=== PATIENT | male | born 1975 | race Caucasian/White ===

== ENCOUNTER 2018-05-18 05:51 | Inpatient (IN) | payer MEDICARE, OTHER ==
[~2018-05-18] VITALS: Ht 180.3 cm; Wt 53.8 kg
[~2018-05-18 05:51] MED LIST: CLONIDINE HCL0.1 MG PO; METOPROLOL SUCC50 MG PO; RISPERDAL0.5 MG PO
[2018-05-18] MEDS ORDERED: IOPAMIDOL 300MG/ML 50ML INFUS..BTL IV ONE (06:35)
--- NOTE | 2018-05-18 06:49 | Diagnostic Imaging Report ---
ABDOMEN-1VIEW (KUB) Clinical history: Preoperative for stones Technique: AP view abdomen Comparison: None Findings: Evaluation is limited by patient positioning and rotation. Multiple calcifications overlie the abdomen. Nonobstructive bowel gas pattern with bowel suture noted and left left lower quadrant ostomy. Chronic changes of the bones with bilateral hip deformities: right femoral head deformity/absence and superior subluxation of the right femur, left femoroacetabular remodeling. Impression: Limited assessment for renal and ureteral stones. Correlate with prior cross-sectional imaging. Signed by: Dr Frances Mena MD on 05/18/2018 6:46 AM
[2018-05-18] MEDS ORDERED: GENTAMICIN 80MG/NS 100 ML 100 ML IV ONE (07:12)
[2018-05-18 07:21] LABS: BASOPHILS % 0.7 % (0.0-1.0); EOSINOPHILS # (AUTO) 0.3 (0.0-0.4); EOSINOPHILS % 4.3 % (0.0-6.0); HEMATOCRIT 39.5 % (38.2-49.6); HEMOGLOBIN 12.9 g/dL (14.0-18.0); LYMPHOCYTES # (AUTO) 1.6 (1.0-3.2); LYMPHOCYTES % 25.8 % (18.0-39.1); MEAN CORPUSCULAR HEMOGLOBIN 29.6 pg (28-32); MEAN CORPUSCULAR HGB CONC 32.7 g/dL (31-35); MEAN CORPUSCULAR VOLUME 90.6 fL (81-99); MONOCYTES # (AUTO) 0.3 (0.2-0.8); MONOCYTES % 5.6 % (4.4-11.3); NEUTROPHILS # (AUTO) 3.8 (2.1-6.9); NEUTROPHILS % 63.3 % (38.7-80.0); PLATELET COUNT 407 x10e3/uL (140-360); RED BLOOD COUNT 4.36 x10e6/uL (4.3-5.7); RED CELL DISTRIBUTION WIDTH 13.9 % (11.7-14.4)
[2018-05-18] MEDS ORDERED: MEROPENEM 1 GM VIAL IV NR (07:30)
[2018-05-18 07:36] LABS: ANION GAP 13.5 mmol/L (8-16); BLOOD UREA NITROGEN 17 mg/dL (7-26); BUN/CREATININE RATIO 29 (6-25); CALCIUM 9.6 mg/dL (8.4-10.2); CARBON DIOXIDE 21 mmol/L (22-29); CHLORIDE 105 mmol/L (98-107); CREATININE, SERUM 0.59 mg/dL (0.72-1.25); EST GLOMERULAR FILTRATION RATE > 60 ML/MIN (60-); GLUCOSE 99 mg/dL (74-118); POTASSIUM 3.5 mmol/L (3.5-5.1); SODIUM 136 mmol/L (136-145)
[2018-05-18] MEDS ORDERED: NITROGLYCERIN/D5W 200 MCG/ML 250 ML ONE (07:58)
[2018-05-18] MEDS ORDERED: NICARDIPINE HCL SOLN 10 ML ONE (08:31)
[2018-05-18] MEDS ORDERED: MEROPENEM 1GM 100 ML IV SCH (10:15)
[2018-05-18] MEDS: SODIUM CHLORIDE 0.9% 250ML IRRIG IR SCH ×2 (10:15→14:15)
[2018-05-18] MEDS ORDERED: DIPHENHYDRAMINE HCL INJ 50 MG/ML VIAL IM PRN (10:15)
[2018-05-18 12:00] VITALS: BP 152/88
[2018-05-18] MEDS: D5.45%NS/KCL 20MEQ 1,000 ML IV SCH ×3 (12:41→21:50)
[2018-05-18 16:00] VITALS: BP 101/68
[2018-05-18] MEDS ORDERED: BALSAM PERU/CASTOR OIL 60 GM OINT...G. TP SCH (17:00)
[2018-05-18] MEDS ORDERED: LIDOCAINE HCL 2% LOCAL INJ 5 ML SDV VIAL INJ ONE (17:30)
[2018-05-18] MEDS ORDERED: PROPOFOL IV EMULSION 10 MG/ML 20 ML VIAL ONE (17:30)
[2018-05-18] MEDS ORDERED: SEVOFLURANE INHAL SOLN 250 ML PEN BTL ONE (17:30)
[2018-05-18] MEDS ORDERED: ONDANSETRON HCL INJ 2 MG/ML VIAL ONE (17:30)
[2018-05-18] MEDS ORDERED: DEXAMETHASONE SOD PHOS INJ 4 MG/ML VIAL ONE (17:30)
[2018-05-18] MEDS: MEROPENEM 1 GM VIAL IV SCH ×3 (18:00→20:39)
[2018-05-18] MEDS ORDERED: MIDAZOLAM HCL 2 MG/2 ML VIAL ONE (18:08)
[2018-05-18] MEDS ORDERED: FENTANYL CITRATE/PF 100MCG/2 ML INJ ONE (18:08)
[2018-05-18 18:20] VITALS: BP 152/88
[2018-05-18 20:00] VITALS: BP 147/105
[2018-05-18 20:39] VITALS: BP 147/105
--- NOTE | 2018-05-18 21:14 | History and Physical ---
HISTORY OF PRESENT ILLNESS: A 43-year-old male with past medical history positive for quadriplegia, hypertension, chronic pain syndrome. He had a bladder stone. Bladder stone was removed by Dr. Lopez today and patient was transferred to my service. REVIEW OF SYSTEMS CARDIOVASCULAR: No chest pain or palpitation. RESPIRATORY: No shortness of breath. No cough. GASTROINTESTINAL: No nausea, no vomiting, no diarrhea. GENITOURINARY: No urinary frequency, no dysuria. ALLERGIES: SHE IS ALLERGIC TO ZOLO[place]. PHYSICAL EXAMINATION VITAL SIGNS: blood pressure 152/88, temperature 96.1, heart rate 80 per minute, respiratory rate 18 per minute, oxygen saturation 100%. LABS: On the BMP, sodium 136, potassium 3.5, chloride 105, CO2 21, BUN 17, creatinine 0.59, glucose 99. On the CBC, white blood count 6.04, hemoglobin 12.9, hematocrit 39.5, platelet count 407,000. FINAL IMPRESSION 1. Bladder stone. 2. Urinary tract infection and prostatitis. 3. Essential hypertension. 4. Anemia of chronic disease. 5. Quadriplegia. 6. Chronic pain syndrome. PLAN OF TREATMENT: Continue meropenem 1 g IV twice a day. Continue UA, urine culture. We are going to resume the Risperdal and metoprolol as he was taking before. Continue IV fluids 125 mL an hour. We are going to continue wound care. Continue pain control with Burna 5 per 325 mg q.4 h. as needed for pain. Job#: [id number]
[2018-05-18] MEDS: BALSAM PERU/CASTOR OIL 60 GM OINT...G. TP SCH (22:45)
[2018-05-18 23:41] LABS: BILIRUBIN,URINE NEGATIVE (NEGATIVE); CLARITY,URINE CLOUDY (CLEAR); COLOR,URINE STRAW (YELLOW); KETONES,URINE NEGATIVE (NEGATIVE); LEUKOCYTE ESTERASE ,URINE 2+ (NEGATIVE); NITRITE,URINE POSITIVE (NEGATIVE); PROTEIN,URINE DIPSTICK 2+ (NEGATIVE); URINE UROBILINOGEN 0.2 mg/dL (0.2 - 1)
[2018-05-18 23:45] LABS: RBC,URINE >50 /HPF (0-5)
[2018-05-18 23:46] LABS: BACTERIA,URINE MANY /HPF; EPITHELIAL CELLS,URINE FEW /LPF; WBC,URINE (MAN) >50 /HPF (0-5)
[2018-05-19] VITALS (7 sets, daily range): BP systolic 104–213; BP diastolic 56–130
[2018-05-19 06:00] LABS: BASOPHILS % 0.4 % (0.0-1.0); EOSINOPHILS # (AUTO) 0.3 (0.0-0.4); EOSINOPHILS % 3.2 % (0.0-6.0); HEMATOCRIT 38.3 % (38.2-49.6); HEMOGLOBIN 12.6 g/dL (14.0-18.0); LYMPHOCYTES # (AUTO) 1.6 (1.0-3.2); LYMPHOCYTES % 19.3 % (18.0-39.1); MEAN CORPUSCULAR HEMOGLOBIN 29.9 pg (28-32); MEAN CORPUSCULAR HGB CONC 32.9 g/dL (31-35); MONOCYTES # (AUTO) 0.5 (0.2-0.8); MONOCYTES % 6.3 % (4.4-11.3); NEUTROPHILS # (AUTO) 5.8 (2.1-6.9); NEUTROPHILS % 70.6 % (38.7-80.0); PLATELET COUNT 392 x10e3/uL (140-360); RED BLOOD COUNT 4.21 x10e6/uL (4.3-5.7); RED CELL DISTRIBUTION WIDTH 14.1 % (11.7-14.4)
[2018-05-19 06:16] LABS: ANION GAP 13.8 mmol/L (8-16); BLOOD UREA NITROGEN 10 mg/dL (7-26); BUN/CREATININE RATIO 16 (6-25); CALCIUM 9.3 mg/dL (8.4-10.2); CARBON DIOXIDE 22 mmol/L (22-29); CHLORIDE 106 mmol/L (98-107); CREATININE, SERUM 0.61 mg/dL (0.72-1.25); EST GLOMERULAR FILTRATION RATE > 60 ML/MIN (60-); GLUCOSE 160 mg/dL (74-118); POTASSIUM 3.8 mmol/L (3.5-5.1); SODIUM 138 mmol/L (136-145)
[2018-05-19] MEDS: MEROPENEM 1 GM VIAL IV SCH ×2 (08:00→21:30)
[2018-05-19] MEDS: CLONIDINE HCL 0.1 MG TAB PO SCH (09:00)
[2018-05-19] MEDS: METOPROLOL SUCCINATE 50 MG TAB XL PO SCH (09:00)
[2018-05-19] MEDS: RISPERIDONE 0.5 MG TAB PO SCH (09:00)
[2018-05-19] MEDS: BALSAM PERU/CASTOR OIL 60 GM OINT...G. TP SCH ×2 (10:00→21:30)
[2018-05-19] MEDS ORDERED: CLONIDINE HCL 0.2 MG TAB PO PRN (10:15)
[2018-05-19] MEDS: D5.45%NS/KCL 20MEQ 1,000 ML IV SCH (10:21)
--- NOTE | 2018-05-19 11:30 | Progress Note ---
DATE: May 19, 2018 INTERNAL MEDICINE PROGRESS NOTE SUBJECTIVE: A 43-year-old male. He has had a bladder stone removed by Dr. Lopez. Patient is currently on IV antibiotic. Blood pressure was very high. We are going to start him on Norvasc and clonidine as needed. PHYSICAL EXAM VITAL SIGNS: Blood pressure 230/130 which he is going to be rechecked again, temperature 98.3 degrees Fahrenheit, heart rate 66 per minute, respiratory rate 17 per minute, and oxygen saturation 100%. HEART: Regular rhythm. Normal S1 and S2 sounds. LUNGS: Clear bilaterally. ABDOMEN: Soft. He has had ileostomy and colostomy. EXTREMITIES: Show atrophy secondary to quadriplegia. LABS: On the BMP, sodium 138, potassium 3.8, chloride 106, CO2 of 22, BUN 10, creatinine 0.61, and glucose 161. CBC; white blood count 8.25, hemoglobin 12.6, hematocrit 38.3, and platelet count 292,000. FINAL IMPRESSION 1. Bladder stone, status post removal. 1. Severely uncontrolled hypertension. 2. Urinary tract infection with prostatitis. 3. Quadriplegia. 4. Anemia of chronic disease. PLAN OF TREATMENT: We are going to discontinue the IV fluids since the BUN and creatinine are normal and the patient is able to take fluids. Continue Benadryl 25 mg q.4 hours as needed. Continue Risperdal 0.25 mg daily. Balsam [place] and castor oil to the open wounds twice a day, meropenem 1 gram IV twice a day, [place] 1 tablet q.4 hours as needed, clonidine 0.2 mg q.4 hours as needed for hypertension., clonidine 0.1 mg daily, metoprolol 50 mg daily, and amlodipine 5 mg daily. Job#: [id number] STAS
[2018-05-19] MEDS: AMLODIPINE BESYLATE 5 MG TAB PO SCH (21:30)
[2018-05-20] VITALS (10 sets, daily range): BP systolic 75–147; BP diastolic 50–97
[2018-05-20 06:06] LABS: BASOPHILS % 0.4 % (0.0-1.0); EOSINOPHILS # (AUTO) 0.3 (0.0-0.4); EOSINOPHILS % 3.8 % (0.0-6.0); HEMATOCRIT 37.7 % (38.2-49.6); HEMOGLOBIN 12.3 g/dL (14.0-18.0); LYMPHOCYTES # (AUTO) 2.4 (1.0-3.2); LYMPHOCYTES % 28.4 % (18.0-39.1); MEAN CORPUSCULAR HEMOGLOBIN 29.7 pg (28-32); MEAN CORPUSCULAR HGB CONC 32.6 g/dL (31-35); MEAN CORPUSCULAR VOLUME 91.1 fL (81-99); MONOCYTES # (AUTO) 0.7 (0.2-0.8); MONOCYTES % 7.8 % (4.4-11.3); NEUTROPHILS % 59.4 % (38.7-80.0); PLATELET COUNT 412 x10e3/uL (140-360); RED BLOOD COUNT 4.14 x10e6/uL (4.3-5.7)
[2018-05-20 06:25] LABS: ANION GAP 14.4 mmol/L (8-16); BLOOD UREA NITROGEN 11 mg/dL (7-26); BUN/CREATININE RATIO 17 (6-25); CALCIUM 9.9 mg/dL (8.4-10.2); CARBON DIOXIDE 22 mmol/L (22-29); CHLORIDE 108 mmol/L (98-107); CREATININE, SERUM 0.63 mg/dL (0.72-1.25); EST GLOMERULAR FILTRATION RATE > 60 ML/MIN (60-); GLUCOSE 134 mg/dL (74-118); POTASSIUM 4.4 mmol/L (3.5-5.1); SODIUM 140 mmol/L (136-145)
[2018-05-20] MEDS: MEROPENEM 1 GM VIAL IV SCH ×2 (09:01→21:21)
[2018-05-20] MEDS: BALSAM PERU/CASTOR OIL 60 GM OINT...G. TP SCH ×2 (09:02→21:21)
[2018-05-20] MEDS: AMLODIPINE BESYLATE 5 MG TAB PO SCH (09:02)
[2018-05-20] MEDS: RISPERIDONE 0.5 MG TAB PO SCH (09:02)
[2018-05-20] MEDS: CLONIDINE HCL 0.1 MG TAB PO SCH (09:02)
[2018-05-20] MEDS: METOPROLOL SUCCINATE 50 MG TAB XL PO SCH (09:02)
--- NOTE | 2018-05-20 14:21 | Progress Note ---
DATE: May 20, 2018 INTERNAL MEDICINE PROGRESS NOTE SUBJECTIVE: Patient is doing well. No significant complaint. OBJECTIVE: VITAL SIGNS: On the blood pressure is 106/65, temperature 98.5, heart rate 76 per minute, respiratory rate is 20 per minute and oxygen saturation is 97%. PHYSICAL EXAM: HEART: Shows regular rhythm. Normal S1 and S2 sounds. LUNGS: Clear bilaterally. ABDOMEN: Soft. He has got an ileostomy and a colostomy in place. EXTREMITIES: Show no evidence of cyanosis, edema or trauma. He does have atrophy in the upper and lower extremities due to the quadriplegia. He has also sacral decubitus. BLOOD WORK: We have a BMP: Sodium 140, potassium 4.4, chloride 108, CO2 22, BUN 11, creatinine 0.63, glucose 134. On the CBC: White blood count 8.37, hemoglobin 12.3, hematocrit 37.7, platelet count 412,000. FINAL IMPRESSION: 1. Urinary tract infection with prostatitis with extended-spectrum beta-lactamase bacteria. 2. Kidney stone status post removal by Dr. Lopez. 3. Quadriplegia. 4. Hypertension. 5. Schizophrenia. 6. Physical deconditioning. PLAN OF TREATMENT: Continue Benadryl 25 mg q.6 h. as needed. Balsam [place]/castor oil q.12 h. Meropenem 1 gram IV twice a day. Infectious disease consult with Dr. Penaloza because of the mkoyo-qnxg-vrczibzux bacteria he had. Continue [place] 1 tablet q.4 h. as needed. Clonidine 0.1 mg daily and 0.2 mg q.4 h. as needed for hypertension. Metoprolol 50 mg daily. Amlodipine 5 mg daily. Risperdal 0.5 mg twice a day. We are going to get an evaluation by [facility] if approved by the insurance company due to the fact that the patient has dalmy-nnpo-seomxqqiq bacteria and multiple decubitus, recent kidney stone, UTI with prostatitis and requires contact isolation. Job#: [id number] EV
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
[2018-05-21] VITALS (8 sets, daily range): BP systolic 81–187; BP diastolic 51–119
[2018-05-21 05:36] LABS: BASOPHILS % 0.4 % (0.0-1.0); EOSINOPHILS # (AUTO) 0.3 (0.0-0.4); EOSINOPHILS % 5.7 % (0.0-6.0); HEMATOCRIT 36.3 % (38.2-49.6); HEMOGLOBIN 11.9 g/dL (14.0-18.0); LYMPHOCYTES # (AUTO) 1.4 (1.0-3.2); LYMPHOCYTES % 25.6 % (18.0-39.1); MEAN CORPUSCULAR HEMOGLOBIN 29.8 pg (28-32); MEAN CORPUSCULAR HGB CONC 32.8 g/dL (31-35); MEAN CORPUSCULAR VOLUME 90.8 fL (81-99); MONOCYTES # (AUTO) 0.3 (0.2-0.8); MONOCYTES % 5.9 % (4.4-11.3); NEUTROPHILS # (AUTO) 3.5 (2.1-6.9); NEUTROPHILS % 62.2 % (38.7-80.0); PLATELET COUNT 372 x10e3/uL (140-360); RED CELL DISTRIBUTION WIDTH 13.7 % (11.7-14.4)
[2018-05-21 05:56] LABS: ANION GAP 13.2 mmol/L (8-16); BLOOD UREA NITROGEN 17 mg/dL (7-26); BUN/CREATININE RATIO 29 (6-25); CALCIUM 9.6 mg/dL (8.4-10.2); CARBON DIOXIDE 23 mmol/L (22-29); CHLORIDE 108 mmol/L (98-107); CREATININE, SERUM 0.58 mg/dL (0.72-1.25); EST GLOMERULAR FILTRATION RATE > 60 ML/MIN (60-); GLUCOSE 92 mg/dL (74-118); POTASSIUM 4.2 mmol/L (3.5-5.1); SODIUM 140 mmol/L (136-145)
[2018-05-21] MEDS: MEROPENEM 1 GM VIAL IV SCH ×2 (08:14→20:36)
[2018-05-21] MEDS: METOPROLOL SUCCINATE 50 MG TAB XL PO SCH (08:45)
[2018-05-21] MEDS: AMLODIPINE BESYLATE 5 MG TAB PO SCH (08:45)
[2018-05-21] MEDS: RISPERIDONE 0.5 MG TAB PO SCH (09:10)
[2018-05-21] MEDS: BALSAM PERU/CASTOR OIL 60 GM OINT...G. TP SCH ×2 (09:10→20:28)
[2018-05-21] MEDS ORDERED: SODIUM CHLORIDE 0.9% 250ML 250 ML ONE (10:13)
[2018-05-21] MEDS: LINEZOLID 600 MG/D5W 300ML 300 ML IV SCH ×2 (10:25→20:36)
[2018-05-21] MEDS: HYDROCODONE/APAP 5MG-325MG TAB PO PRN (14:33)
[2018-05-21] MEDS ORDERED: SODIUM CHLORIDE 0.9% 250ML 250 ML IV ONE (15:00)
[2018-05-22] VITALS (9 sets, daily range): BP systolic 81–148; BP diastolic 50–98
[2018-05-22 05:51] LABS: BASOPHILS % 0.3 % (0.0-1.0); EOSINOPHILS # (AUTO) 0.4 (0.0-0.4); EOSINOPHILS % 6.5 % (0.0-6.0); HEMATOCRIT 36.9 % (38.2-49.6); HEMOGLOBIN 12.1 g/dL (14.0-18.0); LYMPHOCYTES # (AUTO) 1.5 (1.0-3.2); LYMPHOCYTES % 25.7 % (18.0-39.1); MEAN CORPUSCULAR HEMOGLOBIN 29.7 pg (28-32); MEAN CORPUSCULAR HGB CONC 32.8 g/dL (31-35); MEAN CORPUSCULAR VOLUME 90.4 fL (81-99); MONOCYTES # (AUTO) 0.3 (0.2-0.8); MONOCYTES % 5.6 % (4.4-11.3); NEUTROPHILS # (AUTO) 3.6 (2.1-6.9); NEUTROPHILS % 61.7 % (38.7-80.0); PLATELET COUNT 374 x10e3/uL (140-360); RED BLOOD COUNT 4.08 x10e6/uL (4.3-5.7); RED CELL DISTRIBUTION WIDTH 13.4 % (11.7-14.4)
[2018-05-22 06:13] LABS: ALANINE AMINOTRANSFERASE 9 IU/L (0-55); ALBUMIN 3.1 g/dL (3.5-5.0); ALBUMIN/GLOBULIN RATIO 0.8 (0.8-2.0); ALKALINE PHOSPHATASE 99 IU/L (40-150); ANION GAP 13.1 mmol/L (8-16); BLOOD UREA NITROGEN 13 mg/dL (7-26); BUN/CREATININE RATIO 21 (6-25); CALCIUM 9.7 mg/dL (8.4-10.2); CARBON DIOXIDE 25 mmol/L (22-29); CHLORIDE 104 mmol/L (98-107); CREATININE, SERUM 0.61 mg/dL (0.72-1.25); EST GLOMERULAR FILTRATION RATE > 60 ML/MIN (60-); GLUCOSE 101 mg/dL (74-118); POTASSIUM 4.1 mmol/L (3.5-5.1); SODIUM 138 mmol/L (136-145)
[2018-05-22] MEDS: MEROPENEM 1 GM VIAL IV SCH ×2 (08:16→21:25)
[2018-05-22] MEDS: AMLODIPINE BESYLATE 5 MG TAB PO SCH (08:16)
[2018-05-22] MEDS: RISPERIDONE 0.5 MG TAB PO SCH (08:16)
[2018-05-22] MEDS: METOPROLOL SUCCINATE 50 MG TAB XL PO SCH (08:17)
[2018-05-22] MEDS: BALSAM PERU/CASTOR OIL 60 GM OINT...G. TP SCH ×2 (10:13→21:25)
[2018-05-22] MEDS: LINEZOLID 600 MG/D5W 300ML 300 ML IV SCH ×2 (10:17→21:25)
[2018-05-23] VITALS (7 sets, daily range): BP systolic 100–167; BP diastolic 62–109
[2018-05-23] MEDS: HYDROCODONE/APAP 5MG-325MG TAB PO PRN ×2 (00:33→23:00)
[2018-05-23] MEDS: DIPHENHYDRAMINE HCL 25 MG CAP PO PRN ×2 (00:33→22:30)
[2018-05-23] MEDS: MEROPENEM 1 GM VIAL IV SCH ×2 (08:54→20:49)
[2018-05-23] MEDS: METOPROLOL SUCCINATE 50 MG TAB XL PO SCH (09:00)
[2018-05-23] MEDS: AMLODIPINE BESYLATE 5 MG TAB PO SCH (09:00)
[2018-05-23] MEDS: RISPERIDONE 0.5 MG TAB PO SCH (09:08)
[2018-05-23] MEDS: BALSAM PERU/CASTOR OIL 60 GM OINT...G. TP SCH ×2 (09:09→21:00)
[2018-05-23] MEDS: LINEZOLID 600 MG/D5W 300ML 300 ML IV SCH ×2 (10:00→22:32)
--- NOTE | 2018-05-23 18:41 | Progress Note ---
DATE: May 23, 2018 INTERNAL MEDICINE PROGRESS NOTE SUBJECTIVE: The patient is doing well. No significant complaint. PHYSICAL EXAM VITAL SIGNS: Blood pressure 142/89. Temperature 98.7. Heart rate 77 per minute. Respiratory rate 20 per minute. Oxygen saturation 97%. BLOOD WORK: We have BMP, sodium 138, potassium 4.1, chloride 104, CO2 25, BUN 13, creatinine 0.61, glucose 101. On the CBC, white blood count 5.78, hemoglobin 12.1, hematocrit 36.9, platelet count 374,000. AST 11, ALT 9, total bilirubin 0.4, alkaline phosphatase 99. FINAL IMPRESSION 1. Urinary tract infection with prostatitis. 2. Bladder stone. 3. Hypertension. 4. Chronic pain syndrome. 5. Moderate protein-calorie malnutrition. 6. Quadriplegia. 7. Sacral decubitus which is unstageable. PLAN OF TREATMENT: Continue Zyvox 300 mg IV twice a day. Continue with meropenem 1 g IV twice a day, Balsam [place] castor oil for wound care twice a day, [place] 1 tablet q.4 h. as needed, amlodipine 5 mg daily, metoprolol 50 mg daily, Risperdal 0.5 mg daily, and Benadryl 25 mg q.4 h. as needed. We are still waiting for the insurance approval to go to a [id number] due to the need for IV antibiotics in a patient who has recurrent UTIs, bladder stone and sacral decubitus. Job#: [id number] NIMCO
[2018-05-24] VITALS (7 sets, daily range): BP systolic 120–179; BP diastolic 92–119
[2018-05-24] MEDS: AMLODIPINE BESYLATE 5 MG TAB PO SCH (08:31)
[2018-05-24] MEDS: RISPERIDONE 0.5 MG TAB PO SCH (08:31)
[2018-05-24] MEDS: METOPROLOL SUCCINATE 50 MG TAB XL PO SCH (08:31)
[2018-05-24] MEDS: MEROPENEM 1 GM VIAL IV SCH ×2 (08:31→20:00)
[2018-05-24] MEDS: BALSAM PERU/CASTOR OIL 60 GM OINT...G. TP SCH ×2 (08:31→21:23)
[2018-05-24] MEDS: LINEZOLID 600 MG/D5W 300ML 300 ML IV SCH ×2 (10:08→21:23)
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
--- NOTE | 2018-05-24 13:13 | Progress Note ---
DATE: May 24, 2018 ADDENDUM He also has sacral decubitus stage 3. He has also left buttock decubitus stage 3 with minimal drain and he has a right buttock decubiti stage 3 also. PLAN OF TREATMENT: Continue wound care. Job#: [id number] VAS
[2018-05-24] MEDS: HYDROCODONE/APAP 5MG-325MG TAB PO PRN (16:06)
[2018-05-25] VITALS (8 sets, daily range): BP systolic 117–166; BP diastolic 86–112
[2018-05-25] MEDS: MEROPENEM 1 GM VIAL IV SCH (08:31)
[2018-05-25] MEDS: RISPERIDONE 0.5 MG TAB PO SCH (08:31)
[2018-05-25] MEDS: AMLODIPINE BESYLATE 5 MG TAB PO SCH (08:31)
[2018-05-25] MEDS: METOPROLOL SUCCINATE 50 MG TAB XL PO SCH (08:31)
[2018-05-25] MEDS: BALSAM PERU/CASTOR OIL 60 GM OINT...G. TP SCH (09:16)
--- NOTE | 2018-05-25 09:35 | Progress Note ---
DATE: May 25, 2018 INTERNAL MEDICINE PROGRESS NOTE SUBJECTIVE: The patient is doing well. PHYSICAL EXAMINATION VITALS: Blood pressure 144/96, temperature 98.8, heart rate 83 per minute, respiratory rate 16 per minute, oxygen saturation 98%. HEART: Regular rhythm. Normal S1 and S2 sounds. LUNGS: Clear bilaterally. ABDOMEN: Soft. Colostomy and ileostomy. EXTREMITIES: Show atrophy of both upper and lower extremities. On the BMP, sodium 138, potassium 4.1, chloride 104, CO2 25, BUN 13, creatinine 0.61, glucose 101. CBC: White blood count 5.87, hemoglobin 12.1, hematocrit 36.9, and platelet count 374,000. AST 11, ALT 9, total bilirubin 0.4, alkaline phosphatase 99. FINAL IMPRESSION 1. Urinary tract infection and prostatitis with multidrug-resistant bacteria, including vancomycin-resistant enterococcus. 2. Hypertension which is under better control now. 3. Quadriplegia. 4. Schizophrenia. 5. Moderate to severe protein calorie malnutrition. PLAN OF TREATMENT: Zyvox 300 mg IV twice a day. Benadryl 25 mg q.4 h. as needed. Balsam Glucotrol twice a day. [place] 1 tablet q.4 h. as needed. Meropenem 1 g IV twice a day. Amlodipine 5 mg daily. Metoprolol 50 mg daily. Risperdal 0.5 mg daily. We are going to increase the metoprolol to 50 mg twice a day because of uncontrolled hypertension. [facility] medical accounting clerk has denied the patient to go to a long-term care hospital like usual. They denied already. We are going to appeal the decision. Job#: [id number] JESUS
[2018-05-25] MEDS: LINEZOLID 600 MG/D5W 300ML 300 ML IV SCH (10:03)
[2018-05-26] MEDS ORDERED: METOPROLOL SUCCINATE 50 MG TAB XL PO SCH (09:00)
--- NOTE | 2018-05-26 18:25 | Discharge Summary ---
A 43-year-old male with past medical history positive for quadriplegia, chronic pain syndrome, recurrent UTI, recurrent decubiti, came to the hospital for elective admission by Dr. Lopez for removing of bladder stone. She was found to have multi-drug resistant bacteria in the urine vancomycin-resistant enterococcus, started on IV antibiotics. Patient was transferred to [facility]. PHYSICAL EXAM HEART: Shows regular rhythm. Normal S1 and S2 sounds. LUNGS: Clear bilaterally. ABDOMEN: Soft. He had ileostomy and colostomy. NEUROLOGIC: Quadriplegia. FINAL IMPRESSION 1. Multi-drug resistant urinary tract infection with prostatitis. 2. Bladder stone, status post removal. 3. Quadriplegia. 4. Essential hypertension. 5. Chronic pain syndrome. PLAN OF TREATMENT: Continue with the current IV antibiotics. Continue wound care. Continue with Norvasc, metoprolol and clonidine p.r.n. Continue wound care protocol. Patient transferred [facility]. CONCHIS WONG MD Job#: [id number] SUB
--- NOTE | 2018-07-25 00:57 | Operative Report ---
DATE OF PROCEDURE: May 18, 2018 PREOPERATIVE DIAGNOSES 1. Complicated urinary tract infections. 2. Bladder stone. POSTOPERATIVE DIAGNOSES 1. Complicated urinary tract infections. 2. Bladder stone. OPERATIONS PERFORMED 1. Cystourethroscopy with right ureteral catheterization and retrograde ureteropyelography with inability to find the left ureteral orifice (separate procedure performed for the urinary tract infections). 2. Interpretation of retrograde ureteropyelography. 3. Cystolitholapaxy and evacuation of large amount of stone debris from the bladder (separate procedure performed for the bladder stones). 4. Interpretation of cystography. 5. Supervision of fluoroscopy. No radiologist present. ANESTHESIA: General. COMPLICATIONS: None. CLINICAL SUMMARY: Roddy Cote is a 43-year-old man with neurogenic bladder. He has an ileal chimney. The patient was brought to the operating room today for the above procedures. He is aware of the risks of bleeding, infection, injury to adjacent structures, need for additional procedures, and elected to proceed. OPERATIVE PROCEDURE IN DETAIL: Informed consent was verified. Roddy Cote was properly identified, taken to the operating room, placed on the cystoscopy table in supine position. Anesthesia was uneventfully begun. The patient was carefully and gently re-positioned in a modified dorsal lithotomy position to the best of our ability with all pressure points carefully well padded. His genitalia were prepared and draped in usual sterile fashion. A 22.5-[place] cystoscope sheath with a visual obturator in place was atraumatically inserted in the patient's urethra. It was guided down the urethra which exhibited blanching changes consistent with chronic stricture disease and chronic infections. We passed through the normal sphincteric region, went through the prostate bed which was significant for an elevated median bar. We entered the patient's bladder and found massive amount of sand. This sand conglomerated at the bottom of the bladder which is what gave the patient's CT appearance of having a large bladder stone. We evacuated this copious amount of sand and there was some mucous-like debris that we also evacuated. No sand and no stones remained at the end of this evacuation procedure. An 8-[place] catheter was used to cannulate the right ureter and retrograde ureteropyelography was performed. We were unable to find the left ureter due to rather significant bladder wall inflammation as one would expect in this chronically infected bladder with significant stone debris. Interpretation of retrograde ureteropyelography: Contrast was instilled in retrograde fashion bilaterally. There were no tumors, no stones, and no diverticula. Unobstructed drainage was observed on the right hand side fluoroscopically. Some ureteral tortuosity was noted. The cystoscope was withdrawn. [place] catheter was placed. It was irrigated to and fro to ensure it worked properly. Contrast was then injected into the [place] catheter. Interpretation of cystography: The bladder wall appeared relatively smooth. There was not a good delineation of the ileal chimney with this cystogram. We could not establish any evidence of vesicoureteric reflux especially in the light of the fact that we performed retrograde pyelograms previously. Patient was then uneventfully reversed from anesthesia and taken to the recovery room in stable condition. There were no complications to the procedure. He tolerated the procedure well. Plans will be to await the culture and sensitivity sent from the patient's bladder upon initial cystoscopic examination and of course we will monitor the patient closely. Perhaps we will bring the patient back to the operating room in the future in order to perform another cystoscopy in hopes of finding the left ureteral orifice and evaluating the left side as well. Job#: [id number]
== END 2018-05-25 21:53 | DRG 693 ==
LOC: OR 05:51 → PACU V 10:21 → MED/SURG 11:20 → MED/SURG3 05-20 17:28
PROVIDERS: ADMIT Internal Medicine; ATTEND Internal Medicine
PROC: 0TCB8ZZ Extirpation of Matter from Bladder, Via Natural or Artificial Opening Endoscopic (ICD-10-PCS; principal; 2018-05-18 08:00)
PROC: 02HV33Z Insertion of Infusion Device into Superior Vena Cava, Percutaneous Approach (ICD-10-PCS; 2018-05-20)
DX: N21.0 Calculus in bladder (principal); L89.313 Pressure ulcer of right buttock, stage 3; L89.323 Pressure ulcer of left buttock, stage 3; G82.50 Quadriplegia, unspecified; E43 Unspecified severe protein-calorie malnutrition; N39.0 Urinary tract infection, site not specified; Z68.1 Body mass index [BMI] 19.9 or less, adult; J96.10 Chronic respiratory failure, unspecified whether with hypoxia or hypercapnia; F20.9 Schizophrenia, unspecified; I10 Essential (primary) hypertension; G89.4 Chronic pain syndrome; Z88.8 Allergy status to other drugs, medicaments and biological substances; N41.9 Inflammatory disease of prostate, unspecified; D63.8 Anemia in other chronic diseases classified elsewhere; L89.150 Pressure ulcer of sacral region, unstageable; Z93.3 Colostomy status; Z93.2 Ileostomy status; B96.20 Unspecified Escherichia coli [E. coli] as the cause of diseases classified elsewhere; Z16.12 Extended spectrum beta lactamase (ESBL) resistance; Z16.35 Resistance to multiple antimicrobial drugs; Z16.22 Resistance to vancomycin related antibiotics; I95.89 Other hypotension; B96.89 Other specified bacterial agents as the cause of diseases classified elsewhere
CPT/HCPCS: 36415; 74018; 74420; 80048; 80053; 81001; 82948; 83735; 85025; 87086; 87186; 93005; 96361; J1100; J1580; J2001; J2020; J2185; J2250; J2405; J7050

== ENCOUNTER 2020-05-27 12:49 | Inpatient (IN) | payer MEDICARE, OTHER ==
[~2020-05-27] VITALS: Ht 180.3 cm; Wt 53.5 kg
[2020-05-27] MEDS ORDERED: LIDOCAINE HCL 1% LOCAL INJ 20 ML VIAL ONE (12:56)
[2020-05-27] MEDS ORDERED: IOPAMIDOL 300MG/ML 100 ML INFUS..BTL IV ONE (12:56)
[2020-05-27] MEDS ORDERED: SODIUM CHLORIDE 0.9% 250ML 250 ML ONE (12:57)
[2020-05-27] MEDS ORDERED: SODIUM CHLORIDE 0.9% 500ML 500 ML ONE (12:57)
[2020-05-27 13:09] LABS: BASOPHILS % 0.4 % (0.0-1.0); EOSINOPHILS # (AUTO) 0.2 (0.0-0.4); HEMATOCRIT 24.6 % (38.2-49.6); HEMOGLOBIN 7.6 g/dL (14.0-18.0); LYMPHOCYTES # (AUTO) 1.3 (1.0-3.2); LYMPHOCYTES % 23.5 % (18.0-39.1); MEAN CORPUSCULAR HGB CONC 30.9 g/dL (31-35); MEAN CORPUSCULAR VOLUME 90.8 fL (81-99); MONOCYTES # (AUTO) 0.3 (0.2-0.8); MONOCYTES % 6.1 % (4.4-11.3); NEUTROPHILS # (AUTO) 3.6 (2.1-6.9); NEUTROPHILS % 66.6 % (38.7-80.0); PLATELET COUNT 275 x10e3/uL (140-360); RED BLOOD COUNT 2.71 x10e6/uL (4.3-5.7); RED CELL DISTRIBUTION WIDTH 14.3 % (11.7-14.4)
[2020-05-27 13:14] LABS: BILIRUBIN,URINE NEGATIVE (NEGATIVE); CLARITY,URINE CLOUDY (CLEAR); COLOR,URINE YELLOW (YELLOW); KETONES,URINE NEGATIVE (NEGATIVE); LEUKOCYTE ESTERASE ,URINE TRACE (NEGATIVE); NITRITE,URINE NEGATIVE (NEGATIVE); PROTEIN,URINE DIPSTICK 2+ (NEGATIVE); URINE UROBILINOGEN 0.2 mg/dL (0.2 - 1)
[2020-05-27] MEDS ORDERED: MEROPENEM 1GM 1 GM/100 ML BAG IV ONE (13:18)
[2020-05-27 13:26] LABS: INR 0.99; PROTHROMBIN TIME 13.6 seconds (11.9-14.5)
[2020-05-27 13:35] LABS: ALANINE AMINOTRANSFERASE 9 IU/L (0-55); ALBUMIN 3.8 g/dL (3.5-5.0); ALBUMIN/GLOBULIN RATIO 0.9 (0.8-2.0); ALKALINE PHOSPHATASE 98 IU/L (40-150); ANION GAP 10.8 mmol/L (8-16); BLOOD UREA NITROGEN 18 mg/dL (7-26); BUN/CREATININE RATIO 33 (6-25); CALCIUM 9.6 mg/dL (8.4-10.2); CARBON DIOXIDE 25 mmol/L (22-29); CHLORIDE 108 mmol/L (98-107); CREATININE, SERUM 0.55 mg/dL (0.72-1.25); EST GLOMERULAR FILTRATION RATE > 60 ML/MIN (60-); GLUCOSE 84 mg/dL (74-118); POTASSIUM 3.8 mmol/L (3.5-5.1); SODIUM 140 mmol/L (136-145)
[2020-05-27 13:44] LABS: BACTERIA,URINE MANY /HPF; EPITHELIAL CELLS,URINE FEW /LPF
[2020-05-27 13:45] LABS: TRIPLE PHOSPHATE CRYSTAL,UR RARE (FEW); URIC ACID CRYSTALS,URINE FEW (FEW)
[2020-05-27] MEDS ORDERED: FENTANYL CITRATE/PF 100MCG/2 ML INJ ONE (13:47)
[2020-05-27] MEDS ORDERED: MIDAZOLAM HCL 2 MG/2 ML VIAL ONE (13:47)
[2020-05-27 18:42] VITALS: BP 100/72
[2020-05-27] MEDS ORDERED: TRAZODONE HCL50 MG PO (19:30)
[2020-05-27 19:31] VITALS: BP 100/72
[2020-05-27] MEDS: MORPHINE SULFATE 2 MG/ML SYR 1ML IV PRN (19:35)
[2020-05-27] MEDS: SODIUM CHLORIDE 0.9% 1000ML 1,000 ML IV SCH (19:45)
[2020-05-27 20:00] VITALS: BP 115/83
[2020-05-28] VITALS (9 sets, daily range): BP systolic 92–163; BP diastolic 59–105
[2020-05-28] MEDS: SODIUM CHLORIDE 0.9% 1000ML 1,000 ML IV SCH (05:29)
[2020-05-28] MEDS: MORPHINE SULFATE 2 MG/ML SYR 1ML IV PRN ×5 (05:45→22:45)
[2020-05-28] MEDS ORDERED: SODIUM CHLORIDE 0.9% 250ML 250 ML ONE (09:28)
[2020-05-28] MEDS: MEROPENEM 1GM 100 ML IV SCH ×2 (09:46→20:40)
[2020-05-28] MEDS: METOPROLOL SUCCINATE 50 MG TAB XL PO SCH (12:09)
[2020-05-28] MEDS: RISPERIDONE 0.5 MG TAB PO SCH (12:09)
[2020-05-28] MEDS: HYDRALAZINE HCL 20 MG/ML VIAL IV PRN (21:30)
[2020-05-28] MEDS: TRAZODONE HCL 50 MG TAB PO SCH (21:30)
[2020-05-29] VITALS (10 sets, daily range): BP systolic 78–181; BP diastolic 52–96
[2020-05-29] MEDS: MORPHINE SULFATE 2 MG/ML SYR 1ML IV PRN ×5 (02:52→23:30)
[2020-05-29] MEDS: MEROPENEM 1GM 100 ML IV SCH ×2 (09:45→20:31)
[2020-05-29] MEDS: AMLODIPINE BESYLATE 5 MG TAB PO SCH (09:46)
[2020-05-29] MEDS: RISPERIDONE 0.5 MG TAB PO SCH (09:46)
[2020-05-29] MEDS: METOPROLOL SUCCINATE 50 MG TAB XL PO SCH (09:46)
[2020-05-29] MEDS: COLLAGENASE OINTMENT 30 GM TUBE TP SCH (18:30)
[2020-05-29] MEDS: TRAZODONE HCL 50 MG TAB PO SCH (22:15)
[2020-05-30] VITALS (8 sets, daily range): BP systolic 98–190; BP diastolic 46–112
[2020-05-30] MEDS: MORPHINE SULFATE 2 MG/ML SYR 1ML IV PRN ×4 (04:38→17:25)
[2020-05-30] MEDS: AMLODIPINE BESYLATE 5 MG TAB PO SCH (09:41)
[2020-05-30] MEDS: MEROPENEM 1GM 100 ML IV SCH ×2 (09:41→21:01)
[2020-05-30] MEDS: RISPERIDONE 0.5 MG TAB PO SCH (09:41)
[2020-05-30] MEDS: METOPROLOL SUCCINATE 50 MG TAB XL PO SCH (13:30)
[2020-05-30] MEDS: TRAZODONE HCL 50 MG TAB PO SCH (21:01)
[2020-05-30] MEDS: HYDRALAZINE HCL 20 MG/ML VIAL IV PRN (21:02)
[2020-05-30] MEDS ORDERED: SODIUM CHLORIDE 0.9% 250ML 250 ML ONE (21:35)
[2020-05-30] MEDS: HYDROCODONE/APAP 5MG-325MG TAB PO PRN (23:16)
[2020-05-31] VITALS (10 sets, daily range): BP systolic 95–133; BP diastolic 60–95
[2020-05-31] MEDS: COLLAGENASE OINTMENT 30 GM TUBE TP SCH (09:00)
[2020-05-31] MEDS: MEROPENEM 1GM 100 ML IV SCH ×2 (09:31→20:16)
[2020-05-31] MEDS: METOPROLOL SUCCINATE 50 MG TAB XL PO SCH (09:31)
[2020-05-31] MEDS: AMLODIPINE BESYLATE 5 MG TAB PO SCH (09:31)
[2020-05-31] MEDS: RISPERIDONE 0.5 MG TAB PO SCH (09:31)
[2020-05-31] MEDS: MORPHINE SULFATE 2 MG/ML SYR 1ML IV PRN ×4 (09:58→22:14)
[2020-05-31] MEDS: TRAZODONE HCL 50 MG TAB PO SCH (20:16)
[2020-06-01] VITALS (9 sets, daily range): BP systolic 97–162; BP diastolic 52–102
[2020-06-01] MEDS: HYDROCODONE/APAP 5MG-325MG TAB PO PRN (04:05)
[2020-06-01] MEDS: COLLAGENASE OINTMENT 30 GM TUBE TP SCH (09:00)
[2020-06-01] MEDS: MEROPENEM 1GM 100 ML IV SCH ×2 (09:25→20:05)
[2020-06-01] MEDS: METOPROLOL SUCCINATE 50 MG TAB XL PO SCH (09:25)
[2020-06-01] MEDS: RISPERIDONE 0.5 MG TAB PO SCH (09:25)
[2020-06-01] MEDS: AMLODIPINE BESYLATE 5 MG TAB PO SCH (09:25)
[2020-06-01] MEDS: MORPHINE SULFATE 2 MG/ML SYR 1ML IV PRN ×3 (09:33→20:04)
[2020-06-01] MEDS: HYDRALAZINE HCL 20 MG/ML VIAL IV PRN (16:51)
[2020-06-01] MEDS: TRAZODONE HCL 50 MG TAB PO SCH (20:05)
[2020-06-02] VITALS (9 sets, daily range): BP systolic 91–144; BP diastolic 57–84
[2020-06-02] MEDS: MORPHINE SULFATE 2 MG/ML SYR 1ML IV PRN ×4 (01:13→20:00)
[2020-06-02] MEDS: METOPROLOL SUCCINATE 50 MG TAB XL PO SCH (09:00)
[2020-06-02] MEDS: COLLAGENASE OINTMENT 30 GM TUBE TP SCH (09:00)
[2020-06-02] MEDS: AMLODIPINE BESYLATE 5 MG TAB PO SCH (09:00)
[2020-06-02] MEDS: MEROPENEM 1GM 100 ML IV SCH ×2 (10:00→20:05)
[2020-06-02] MEDS: RISPERIDONE 0.5 MG TAB PO SCH (10:00)
[2020-06-02] MEDS: TRAZODONE HCL 50 MG TAB PO SCH (20:59)
[2020-06-03] VITALS (9 sets, daily range): BP systolic 101–159; BP diastolic 58–110
[2020-06-03] MEDS: MORPHINE SULFATE 2 MG/ML SYR 1ML IV PRN ×5 (00:23→20:01)
[2020-06-03] MEDS: AMLODIPINE BESYLATE 5 MG TAB PO SCH (08:03)
[2020-06-03] MEDS: MEROPENEM 1GM 100 ML IV SCH ×2 (08:03→20:01)
[2020-06-03] MEDS: RISPERIDONE 0.5 MG TAB PO SCH (08:03)
[2020-06-03] MEDS: METOPROLOL SUCCINATE 50 MG TAB XL PO SCH (08:03)
[2020-06-03] MEDS: COLLAGENASE OINTMENT 30 GM TUBE TP SCH (11:56)
[2020-06-03 14:30] LABS: BASOPHILS % 0.2 % (0.0-1.0); EOSINOPHILS # (AUTO) 0.2 (0.0-0.4); EOSINOPHILS % 4.6 % (0.0-6.0); HEMATOCRIT 33.8 % (38.2-49.6); HEMOGLOBIN 10.3 g/dL (14.0-18.0); LYMPHOCYTES # (AUTO) 1.5 (1.0-3.2); LYMPHOCYTES % 28.4 % (18.0-39.1); MEAN CORPUSCULAR HEMOGLOBIN 27.7 pg (28-32); MEAN CORPUSCULAR HGB CONC 30.5 g/dL (31-35); MEAN CORPUSCULAR VOLUME 90.9 fL (81-99); MONOCYTES # (AUTO) 0.4 (0.2-0.8); MONOCYTES % 7.2 % (4.4-11.3); NEUTROPHILS # (AUTO) 3.1 (2.1-6.9); NEUTROPHILS % 59.4 % (38.7-80.0); PLATELET COUNT 373 x10e3/uL (140-360); RED BLOOD COUNT 3.72 x10e6/uL (4.3-5.7)
[2020-06-03 14:50] LABS: ALANINE AMINOTRANSFERASE 8 IU/L (0-55); ALBUMIN 3.6 g/dL (3.5-5.0); ALBUMIN/GLOBULIN RATIO 0.9 (0.8-2.0); ALKALINE PHOSPHATASE 106 IU/L (40-150); ANION GAP 13.3 mmol/L (8-16); BLOOD UREA NITROGEN 24 mg/dL (7-26); BUN/CREATININE RATIO 43 (6-25); CALCIUM 9.1 mg/dL (8.4-10.2); CARBON DIOXIDE 29 mmol/L (22-29); CHLORIDE 101 mmol/L (98-107); CREATININE, SERUM 0.56 mg/dL (0.72-1.25); EST GLOMERULAR FILTRATION RATE > 60 ML/MIN (60-); GLUCOSE 118 mg/dL (74-118); POTASSIUM 4.3 mmol/L (3.5-5.1); SODIUM 139 mmol/L (136-145)
[2020-06-03] MEDS: TRAZODONE HCL 50 MG TAB PO SCH (21:55)
[2020-06-04] VITALS: BP 101/72
[2020-06-04 04:00] VITALS: BP 121/111
[2020-06-04] MEDS: MORPHINE SULFATE 2 MG/ML SYR 1ML IV PRN ×2 (04:56→09:25)
[2020-06-04 08:00] VITALS: BP 116/73
[2020-06-04 08:25] VITALS: BP 116/73
[2020-06-04] MEDS: MEROPENEM 1GM 100 ML IV SCH (09:57)
[2020-06-04] MEDS: AMLODIPINE BESYLATE 5 MG TAB PO SCH (09:57)
[2020-06-04] MEDS: RISPERIDONE 0.5 MG TAB PO SCH (09:57)
[2020-06-04] MEDS: METOPROLOL SUCCINATE 50 MG TAB XL PO SCH (09:59)
[2020-06-04] MEDS: COLLAGENASE OINTMENT 30 GM TUBE TP SCH (10:53)
[2020-06-04 12:00] VITALS: BP 162/97
[2020-06-04 16:00] VITALS: BP 127/79
== END 2020-06-04 16:46 | disposition home or self-care (01) | DRG 698 ==
LOC: US 12:49 → MED/SURG2 16:37
PROVIDERS: ADMIT Internal Medicine; ATTEND Internal Medicine
PROC: 02HV33Z Insertion of Infusion Device into Superior Vena Cava, Percutaneous Approach (ICD-10-PCS; principal; 2020-05-27)
DX: T83.511A Infection and inflammatory reaction due to indwelling urethral catheter, initial encounter (principal); L89.323 Pressure ulcer of left buttock, stage 3; G82.50 Quadriplegia, unspecified; N30.00 Acute cystitis without hematuria; Z16.12 Extended spectrum beta lactamase (ESBL) resistance; Z16.24 Resistance to multiple antibiotics; F25.9 Schizoaffective disorder, unspecified; I10 Essential (primary) hypertension; Z09 Encounter for follow-up examination after completed treatment for conditions other than malignant neoplasm; Z87.440 Personal history of urinary (tract) infections; Z87.898 Personal history of other specified conditions; Z88.2 Allergy status to sulfonamides; B96.20 Unspecified Escherichia coli [E. coli] as the cause of diseases classified elsewhere; Z11.59 Encounter for screening for other viral diseases; G89.4 Chronic pain syndrome; B96.1 Klebsiella pneumoniae [K. pneumoniae] as the cause of diseases classified elsewhere; B96.4 Proteus (mirabilis) (morganii) as the cause of diseases classified elsewhere; Z91.19 Patient's noncompliance with other medical treatment and regimen
CPT/HCPCS: 36415; 51102; 76942; 80053; 81001; 85025; 85610; 87086; 87186; 99251; J0360; J1642; J2001; J2250; J2270; J3010; J7030; J7040; J7050; Q9967; U0002

== ENCOUNTER → 2020-08-02 | Outpatient (CLI) | payer MEDICARE, OTHER ==
[~2020-08-02] MED LIST changes: +IOPAMIDOL 300MG/ML 100 ML INFUS..BTL IV ONE; +TRAZODONE HCL50 MG PO
== END ==
LOC: DX 16:34
PROVIDERS: ATTEND Urology
DX: R33.9 Retention of urine, unspecified (principal)
CPT/HCPCS: 51102; Q9967; C1769

== ENCOUNTER 2020-08-30 16:35 | Inpatient (IN) | payer MEDICARE, OTHER ==
[~2020-08-30] VITALS: Ht 180.3 cm; Wt 53.6 kg
[~2020-08-30 16:35] MED LIST changes: -IOPAMIDOL 300MG/ML 100 ML INFUS..BTL IV ONE
[2020-08-30] MEDS ORDERED: ACETAMINOPHEN 325 MG TAB PO ONE (17:30)
[2020-08-30 17:37] LABS: CLARITY,URINE HAZY (CLEAR); COLOR,URINE STRAW (YELLOW); KETONES,URINE NEGATIVE (NEGATIVE); LEUKOCYTE ESTERASE ,URINE MODERATE (NEGATIVE); NITRITE,URINE NEGATIVE (NEGATIVE); PROTEIN,URINE DIPSTICK 2+ (NEGATIVE); URINE UROBILINOGEN 0.2 mg/dL (0.2 - 1)
[2020-08-30 17:58] LABS: BACTERIA,URINE MANY /HPF
[2020-08-30] MEDS ORDERED: CEFTRIAXONE SOD 1 GM VIAL IM ONE (19:00)
[2020-08-30 21:26] LABS: BASOPHILS % 0.5 % (0.0-1.0); EOSINOPHILS # (AUTO) 0.1 (0.0-0.4); EOSINOPHILS % 1.4 % (0.0-6.0); HEMATOCRIT 33.6 % (38.2-49.6); HEMOGLOBIN 10.5 g/dL (14.0-18.0); LYMPHOCYTES % 24.3 % (18.0-39.1); MEAN CORPUSCULAR HEMOGLOBIN 27.4 pg (28-32); MEAN CORPUSCULAR HGB CONC 31.3 g/dL (31-35); MEAN CORPUSCULAR VOLUME 87.7 fL (81-99); MONOCYTES # (AUTO) 0.4 (0.2-0.8); MONOCYTES % 5.3 % (4.4-11.3); NEUTROPHILS # (AUTO) 5.5 (2.1-6.9); NEUTROPHILS % 68.1 % (38.7-80.0); PLATELET COUNT 512 x10e3/uL (140-360); RED BLOOD COUNT 3.83 x10e6/uL (4.3-5.7); RED CELL DISTRIBUTION WIDTH 14.6 % (11.7-14.4)
[2020-08-30] MEDS ORDERED: CEFTRIAXONE SOD 1 GM/NS 50 ML 50 ML IV ONE (21:30)
[2020-08-30 21:34] LABS: INR 1.01; PROTHROMBIN TIME 13.8 seconds (11.9-14.5)
[2020-08-30 21:35] LABS: PARTIAL THROMBOPLASTIN TIME 38.2 seconds (23.8-35.5)
[2020-08-30 21:43] LABS: ALANINE AMINOTRANSFERASE 10 IU/L (0-55); ALBUMIN 3.3 g/dL (3.5-5.0); ALBUMIN/GLOBULIN RATIO 0.7 (0.8-2.0); ALKALINE PHOSPHATASE 99 IU/L (40-150); ANION GAP 14.7 mmol/L (8-16); BLOOD UREA NITROGEN 18 mg/dL (7-26); BUN/CREATININE RATIO 31 (6-25); CALCIUM 9.5 mg/dL (8.4-10.2); CARBON DIOXIDE 25 mmol/L (22-29); CHLORIDE 108 mmol/L (98-107); CREATINE KINASE 90 IU/L (30-200); CREATININE, SERUM 0.59 mg/dL (0.72-1.25); EST GLOMERULAR FILTRATION RATE > 60 ML/MIN (60-); GLUCOSE 97 mg/dL (74-118); POTASSIUM 3.7 mmol/L (3.5-5.1); SODIUM 144 mmol/L (136-145)
[2020-08-30] MEDS ORDERED: ACETAMINOPHEN 325 MG TAB PO PRN (22:30)
[2020-08-30] MEDS ORDERED: SODIUM CHLORIDE 0.9% 1000ML 1,000 ML IV SCH (22:30)
[2020-08-30] MEDS ORDERED: MEROPENEM 1GRAM 1 GM in SODIUM CHLORIDE 0.9% 100 ML 100 ML IV SCH (22:30)
[2020-08-30] MEDS ORDERED: ONDANSETRON HCL INJ 2MG/ML 2ML 2 MG/ML VIAL IV PRN (22:30)
[2020-08-30 23:40] VITALS: BP 170/103
[2020-08-31] VITALS (8 sets, daily range): BP systolic 120–203; BP diastolic 79–135
[2020-08-31] MEDS ORDERED: ACETAMINOPHEN 325 MG TAB PO PRN (00:15)
[2020-08-31] MEDS: MEROPENEM 1GM 100 ML IV SCH ×4 (00:30→21:01)
[2020-08-31] MEDS ORDERED: SODIUM CHLORIDE 0.9% 1000ML 1,000 ML ONE (00:31)
[2020-08-31] MEDS ORDERED: LOPRESSOR25 MG PO (00:35)
[2020-08-31 09:09] LABS: BASOPHILS % 0.3 % (0.0-1.0); EOSINOPHILS # (AUTO) 0.2 (0.0-0.4); EOSINOPHILS % 3.1 % (0.0-6.0); HEMATOCRIT 30.5 % (38.2-49.6); HEMOGLOBIN 9.4 g/dL (14.0-18.0); LYMPHOCYTES # (AUTO) 1.4 (1.0-3.2); LYMPHOCYTES % 22.9 % (18.0-39.1); MEAN CORPUSCULAR HEMOGLOBIN 27.2 pg (28-32); MEAN CORPUSCULAR HGB CONC 30.8 g/dL (31-35); MEAN CORPUSCULAR VOLUME 88.4 fL (81-99); MONOCYTES # (AUTO) 0.3 (0.2-0.8); MONOCYTES % 5.3 % (4.4-11.3); NEUTROPHILS # (AUTO) 4.1 (2.1-6.9); NEUTROPHILS % 68.2 % (38.7-80.0); PLATELET COUNT 450 x10e3/uL (140-360); RED BLOOD COUNT 3.45 x10e6/uL (4.3-5.7); RED CELL DISTRIBUTION WIDTH 14.8 % (11.7-14.4)
[2020-08-31 09:25] LABS: ALBUMIN 2.9 g/dL (3.5-5.0); ALBUMIN/GLOBULIN RATIO 0.7 (0.8-2.0); ALKALINE PHOSPHATASE 83 IU/L (40-150); ANION GAP 12.7 mmol/L (8-16); BLOOD UREA NITROGEN 13 mg/dL (7-26); BUN/CREATININE RATIO 26 (6-25); CALCIUM 8.5 mg/dL (8.4-10.2); CARBON DIOXIDE 23 mmol/L (22-29); CHLORIDE 108 mmol/L (98-107); EST GLOMERULAR FILTRATION RATE > 60 ML/MIN (60-); GLUCOSE 95 mg/dL (74-118); POTASSIUM 3.7 mmol/L (3.5-5.1); SODIUM 140 mmol/L (136-145)
[2020-08-31 09:59] LABS: ALANINE AMINOTRANSFERASE < 6 IU/L (0-55)
[2020-08-31] MEDS ORDERED: HYDROCODONE/APAP 5MG-325MG TAB PO PRN (12:00)
[2020-08-31] MEDS: RISPERIDONE 1 MG TAB PO SCH (13:30)
[2020-08-31] MEDS: METOPROLOL TARTRATE 25 MG TAB PO SCH (17:06)
[2020-08-31] MEDS: TRAZODONE HCL 50 MG TAB PO SCH (21:01)
[2020-08-31] MEDS ORDERED: MEROPENEM 1GRAM 1 GM in SODIUM CHLORIDE 0.9% 100 ML 100 ML IV SCH (22:00)
[2020-09-01] VITALS (8 sets, daily range): BP systolic 112–193; BP diastolic 70–138
[2020-09-01] MEDS ORDERED: HYDRALAZINE HCL10 MG PO (04:50)
[2020-09-01] MEDS: MEROPENEM 1GM 100 ML IV SCH ×3 (05:45→21:35)
[2020-09-01 06:35] LABS: BASOPHILS % 0.6 % (0.0-1.0); EOSINOPHILS # (AUTO) 0.2 (0.0-0.4); EOSINOPHILS % 4.3 % (0.0-6.0); HEMATOCRIT 30.8 % (38.2-49.6); HEMOGLOBIN 9.5 g/dL (14.0-18.0); LYMPHOCYTES # (AUTO) 1.7 (1.0-3.2); LYMPHOCYTES % 31.2 % (18.0-39.1); MEAN CORPUSCULAR HEMOGLOBIN 27.1 pg (28-32); MEAN CORPUSCULAR HGB CONC 30.8 g/dL (31-35); MONOCYTES # (AUTO) 0.3 (0.2-0.8); MONOCYTES % 5.2 % (4.4-11.3); NEUTROPHILS # (AUTO) 3.2 (2.1-6.9); NEUTROPHILS % 58.5 % (38.7-80.0); PLATELET COUNT 458 x10e3/uL (140-360); RED CELL DISTRIBUTION WIDTH 14.7 % (11.7-14.4)
[2020-09-01 06:55] LABS: ANION GAP 11.8 mmol/L (8-16); BLOOD UREA NITROGEN 9 mg/dL (7-26); BUN/CREATININE RATIO 17 (6-25); CALCIUM 8.7 mg/dL (8.4-10.2); CARBON DIOXIDE 25 mmol/L (22-29); CHLORIDE 107 mmol/L (98-107); CREATININE, SERUM 0.54 mg/dL (0.72-1.25); EST GLOMERULAR FILTRATION RATE > 60 ML/MIN (60-); GLUCOSE 92 mg/dL (74-118); POTASSIUM 3.8 mmol/L (3.5-5.1); SODIUM 140 mmol/L (136-145)
[2020-09-01] MEDS ORDERED: RISPERIDONE 0.5 MG TAB PO SCH (09:00)
[2020-09-01] MEDS: RISPERIDONE 1 MG TAB PO SCH (09:05)
[2020-09-01] MEDS: METOPROLOL TARTRATE 25 MG TAB PO SCH ×2 (09:05→16:56)
[2020-09-01] MEDS: MORPHINE SULFATE 2 MG/ML SYR 1ML IV PRN ×3 (13:54→21:05)
[2020-09-01] MEDS: DOCUSATE SODIUM 100 MG CAP PO SCH (16:55)
[2020-09-01] MEDS: HYDRALAZINE HCL 10 MG TAB PO SCH (21:34)
[2020-09-01] MEDS: TRAZODONE HCL 50 MG TAB PO SCH (21:35)
[2020-09-02] VITALS (7 sets, daily range): BP systolic 120–166; BP diastolic 77–93
[2020-09-02] MEDS: MORPHINE SULFATE 2 MG/ML SYR 1ML IV PRN ×6 (02:10→22:46)
[2020-09-02] MEDS: MEROPENEM 1GM 100 ML IV SCH ×3 (05:49→21:50)
[2020-09-02] MEDS: HYDRALAZINE HCL 10 MG TAB PO SCH ×3 (07:58→21:00)
[2020-09-02] MEDS: METOPROLOL TARTRATE 25 MG TAB PO SCH ×2 (07:58→17:04)
[2020-09-02] MEDS: DOCUSATE SODIUM 100 MG CAP PO SCH ×2 (07:58→17:04)
[2020-09-02] MEDS: RISPERIDONE 1 MG TAB PO SCH (07:59)
[2020-09-02] MEDS ORDERED: SODIUM CHLORIDE 0.9% 250ML 250 ML ONE (15:06)
[2020-09-02] MEDS: TRAZODONE HCL 50 MG TAB PO SCH (21:50)
[2020-09-03] VITALS (10 sets, daily range): BP systolic 107–221; BP diastolic 73–127
[2020-09-03] MEDS: MORPHINE SULFATE 2 MG/ML SYR 1ML IV PRN ×5 (03:01→20:00)
[2020-09-03] MEDS: MEROPENEM 1GM 100 ML IV SCH ×3 (05:59→22:35)
[2020-09-03] MEDS: DOCUSATE SODIUM 100 MG CAP PO SCH ×2 (08:24→17:04)
[2020-09-03] MEDS: METOPROLOL TARTRATE 25 MG TAB PO SCH ×2 (08:25→17:05)
[2020-09-03] MEDS: RISPERIDONE 1 MG TAB PO SCH (08:25)
[2020-09-03] MEDS: HYDRALAZINE HCL 10 MG TAB PO SCH ×2 (08:36→15:30)
[2020-09-03] MEDS ORDERED: HYDRALAZINE HCL 25 MG TAB PO ONE (17:15)
[2020-09-03] MEDS ORDERED: HYDRALAZINE HCL 25 MG TAB PO PRN (17:30)
[2020-09-03] MEDS: TRAZODONE HCL 50 MG TAB PO SCH (20:00)
[2020-09-04] VITALS: BP 122/90
[2020-09-04 04:00] VITALS: BP 127/96
[2020-09-04] MEDS: MORPHINE SULFATE 2 MG/ML SYR 1ML IV PRN ×3 (04:22→12:20)
[2020-09-04] MEDS: MEROPENEM 1GM 100 ML IV SCH (05:58)
[2020-09-04 07:55] VITALS: BP 154/103
[2020-09-04 08:30] VITALS: BP 154/103
[2020-09-04] MEDS: RISPERIDONE 1 MG TAB PO SCH (09:01)
[2020-09-04] MEDS: METOPROLOL TARTRATE 25 MG TAB PO SCH (09:01)
[2020-09-04] MEDS: DOCUSATE SODIUM 100 MG CAP PO SCH (09:01)
[2020-09-04] MEDS ORDERED: MEROPENEM-1 GM/50 ML IV (10:09)
[2020-09-04] MEDS ORDERED: ONDANSETRON HCL 4 MG ORAL DISINTEGRATING TAB PO PRN (10:15)
[2020-09-04 11:50] VITALS: BP 119/80
== END 2020-09-04 13:53 | DRG 698 ==
LOC: ER 16:46 → ERHOLD 22:22 → ER 23:19 → MED/SURG3 23:55 → OBSVTOIN 09-01 14:26
PROVIDERS: ADMIT Internal Medicine; ATTEND Internal Medicine
DX: T83.511A Infection and inflammatory reaction due to indwelling urethral catheter, initial encounter (principal); L89.304 Pressure ulcer of unspecified buttock, stage 4; L89.894 Pressure ulcer of other site, stage 4; A41.9 Sepsis, unspecified organism; G82.50 Quadriplegia, unspecified; J96.10 Chronic respiratory failure, unspecified whether with hypoxia or hypercapnia; Z16.12 Extended spectrum beta lactamase (ESBL) resistance; N39.0 Urinary tract infection, site not specified; Z74.01 Bed confinement status; Z93.3 Colostomy status; I10 Essential (primary) hypertension; Z96.0 Presence of urogenital implants; Z20.828 Contact with and (suspected) exposure to other viral communicable diseases; Z93.0 Tracheostomy status; F20.9 Schizophrenia, unspecified; B96.4 Proteus (mirabilis) (morganii) as the cause of diseases classified elsewhere
CPT/HCPCS: 36415; 71045; 80048; 80053; 81001; 82550; 82553; 82948; 83605; 84484; 85025; 85610; 85730; 87040; 87086; 87186; 93005; 99251; 99284; G0378; J0696; J2185; J2270; J7030; J7050; U0002

== ENCOUNTER → 2020-10-08 | Outpatient (CLI) | payer MEDICARE, OTHER ==
[~2020-10-08] MED LIST changes: +HYDRALAZINE HCL10 MG PO; +IOPAMIDOL 300 MG/ML 15ML VIAL IT ONE; +LOPRESSOR25 MG PO; +MEROPENEM-1 GM/50 ML IV
== END ==
LOC: DX 10:41
PROVIDERS: ATTEND Urology
DX: R33.9 Retention of urine, unspecified (principal)
CPT/HCPCS: 51102; Q9967

== ENCOUNTER 2020-10-10 17:32 | Inpatient (IN) | payer MEDICARE, OTHER ==
[~2020-10-10] VITALS: Ht 170.2 cm; Wt 54.7 kg
[~2020-10-10 17:32] MED LIST changes: -IOPAMIDOL 300 MG/ML 15ML VIAL IT ONE
[2020-10-10] MEDS ORDERED: ASPIRIN 81 MG CHEW TAB PO ONE (17:45)
[2020-10-10] MEDS ORDERED: CEFEPIME 2 GM/NS 0.9% 100 ML 100 ML IV ONE (17:45)
[2020-10-10] MEDS ORDERED: SODIUM CHLORIDE 0.9% 1000ML 1,000 ML IV ONE ×2 (17:45→18:45)
[2020-10-10] MEDS ORDERED: ACETAMINOPHEN 325 MG TAB PO ONE ×2 (17:45→18:45)
[2020-10-10] MEDS ORDERED: VANCOMYCIN 1GM/NS 250 ML 250 ML IV ONE (18:00)
[2020-10-10 18:16] LABS: BASOPHILS % 0.4 % (0.0-1.0); HEMATOCRIT 36.7 % (38.2-49.6); HEMOGLOBIN 12.1 g/dL (14.0-18.0); LYMPHOCYTES # (AUTO) 0.8 (1.0-3.2); LYMPHOCYTES % 14.5 % (18.0-39.1); MEAN CORPUSCULAR HEMOGLOBIN 28.7 pg (28-32); MONOCYTES # (AUTO) 0.4 (0.2-0.8); MONOCYTES % 7.6 % (4.4-11.3); NEUTROPHILS # (AUTO) 4.4 (2.1-6.9); NEUTROPHILS % 77.1 % (38.7-80.0); PLATELET COUNT 303 x10e3/uL (140-360); RED BLOOD COUNT 4.22 x10e6/uL (4.3-5.7); RED CELL DISTRIBUTION WIDTH 14.3 % (11.7-14.4)
[2020-10-10 18:22] LABS: CLARITY,URINE CLOUDY (CLEAR); COLOR,URINE AMBER (YELLOW); KETONES,URINE 2+ (NEGATIVE); LEUKOCYTE ESTERASE ,URINE SMALL (NEGATIVE); NITRITE,URINE NEGATIVE (NEGATIVE); PROTEIN,URINE DIPSTICK >=300 (NEGATIVE)
[2020-10-10 18:23] LABS: URINE UROBILINOGEN 0.2 mg/dL (0.2 - 1)
[2020-10-10 18:26] LABS: BACTERIA,URINE MODERATE /HPF; WBC,URINE (MAN) 0-5 /HPF (0-5)
[2020-10-10 18:27] LABS: AMORPHOUS SEDIMENT,URINE MODERATE (FEW)
[2020-10-10 18:34] LABS: ALANINE AMINOTRANSFERASE 13 IU/L (0-55); ALBUMIN 3.4 g/dL (3.5-5.0); ALBUMIN/GLOBULIN RATIO 0.7 (0.8-2.0); ALKALINE PHOSPHATASE 89 IU/L (40-150); ANION GAP 21.5 mmol/L (8-16); BLOOD UREA NITROGEN 18 mg/dL (7-26); BUN/CREATININE RATIO 26 (6-25); CALCIUM 8.8 mg/dL (8.4-10.2); CARBON DIOXIDE 17 mmol/L (22-29); CHLORIDE 104 mmol/L (98-107); CREATINE KINASE 163 IU/L (30-200); CREATININE, SERUM 0.69 mg/dL (0.72-1.25); EST GLOMERULAR FILTRATION RATE > 60 ML/MIN (60-); GLUCOSE 65 mg/dL (74-118); POTASSIUM 3.5 mmol/L (3.5-5.1); SODIUM 139 mmol/L (136-145)
[2020-10-10] MEDS ORDERED: PIPER-TAZ 3.375 GM 50 ML IV ONE (19:30)
[2020-10-10] MEDS: PIPER-TAZ 3.375 GM 50 ML IV SCH (21:00)
[2020-10-10] MEDS ORDERED: VANCOMYCIN 1GM/NS 250 ML 250 ML IV SCH (21:15)
[2020-10-10] MEDS: SODIUM CHLORIDE 0.9% 1000ML 1,000 ML IV SCH (21:32)
[2020-10-11] MEDS: SODIUM CHLORIDE 0.9% 1000ML 1,000 ML IV SCH ×2 (06:54→14:21)
[2020-10-11] MEDS: PIPER-TAZ 3.375 GM 50 ML IV SCH ×3 (06:54→20:30)
[2020-10-11 07:09] LABS: BASOPHILS % 0.3 % (0.0-1.0); EOSINOPHILS % 0.3 % (0.0-6.0); HEMATOCRIT 35.3 % (38.2-49.6); HEMOGLOBIN 11.1 g/dL (14.0-18.0); LYMPHOCYTES % 15.3 % (18.0-39.1); MEAN CORPUSCULAR HEMOGLOBIN 28.5 pg (28-32); MEAN CORPUSCULAR HGB CONC 31.4 g/dL (31-35); MONOCYTES # (AUTO) 0.7 (0.2-0.8); MONOCYTES % 11.4 % (4.4-11.3); NEUTROPHILS # (AUTO) 4.6 (2.1-6.9); NEUTROPHILS % 72.2 % (38.7-80.0); PLATELET COUNT 254 x10e3/uL (140-360); RED BLOOD COUNT 3.89 x10e6/uL (4.3-5.7); RED CELL DISTRIBUTION WIDTH 14.5 % (11.7-14.4)
[2020-10-11 07:14] LABS: MEAN CORPUSCULAR VOLUME 90.7 fL (81-99)
[2020-10-11 07:34] LABS: ALANINE AMINOTRANSFERASE 11 IU/L (0-55); ALBUMIN 2.8 g/dL (3.5-5.0); ALBUMIN/GLOBULIN RATIO 0.7 (0.8-2.0); ALKALINE PHOSPHATASE 82 IU/L (40-150); ANION GAP 20.5 mmol/L (8-16); BLOOD UREA NITROGEN 18 mg/dL (7-26); BUN/CREATININE RATIO 31 (6-25); CALCIUM 7.8 mg/dL (8.4-10.2); CARBON DIOXIDE 13 mmol/L (22-29); CHLORIDE 112 mmol/L (98-107); CREATININE, SERUM 0.59 mg/dL (0.72-1.25); EST GLOMERULAR FILTRATION RATE > 60 ML/MIN (60-); GLUCOSE 61 mg/dL (74-118); POTASSIUM 3.5 mmol/L (3.5-5.1); SODIUM 142 mmol/L (136-145)
[2020-10-11] MEDS: VANCOMYCIN 1GM/NS 250 ML 250 ML IV SCH ×2 (10:28→21:30)
[2020-10-11 13:52] VITALS: BP 153/106
[2020-10-11] MEDS: ONDANSETRON HCL INJ 2MG/ML 2ML 2 MG/ML VIAL IV PRN ×2 (14:23→20:40)
[2020-10-11] MEDS: ACETAMINOPHEN 325 MG TAB PO PRN ×2 (14:23→20:40)
[2020-10-11] MEDS: MORPHINE SULFATE INJ 2 MG/ML SYR IV PRN ×2 (14:24→20:40)
[2020-10-11 14:50] VITALS: BP 153/106
[2020-10-11 16:18] VITALS: BP 128/87
[2020-10-11 18:31] VITALS: BP 128/87
[2020-10-11 20:00] VITALS: BP 108/73
[2020-10-11 21:00] VITALS: BP 108/73
[2020-10-11] MEDS: METOPROLOL TARTRATE 25 MG TAB PO SCH (21:43)
[2020-10-12] VITALS: BP 113/79
[2020-10-12] MEDS: SODIUM CHLORIDE 0.9% 1000ML 1,000 ML IV SCH ×4 (00:30→20:21)
[2020-10-12] MEDS: MORPHINE SULFATE INJ 2 MG/ML SYR IV PRN ×4 (03:10→21:43)
[2020-10-12] MEDS: ONDANSETRON HCL INJ 2MG/ML 2ML 2 MG/ML VIAL IV PRN ×2 (03:10→21:43)
[2020-10-12] MEDS: PIPER-TAZ 3.375 GM 50 ML IV SCH ×3 (05:13→21:43)
[2020-10-12 08:00] VITALS: BP 101/77
[2020-10-12 08:56] VITALS: BP 101/77
[2020-10-12] MEDS: METOPROLOL TARTRATE 25 MG TAB PO SCH (09:45)
[2020-10-12] MEDS: VANCOMYCIN 1GM/NS 250 ML 250 ML IV SCH (09:45)
[2020-10-12 16:37] VITALS: BP 126/93
[2020-10-12 20:00] VITALS: BP 108/75
[2020-10-12] MEDS: TRAZODONE HCL 50 MG TAB PO SCH (20:20)
[2020-10-12 21:00] VITALS: BP 108/75
[2020-10-13] VITALS (7 sets, daily range): BP systolic 112–154; BP diastolic 72–121
[2020-10-13] MEDS: PIPER-TAZ 3.375 GM 50 ML IV SCH ×3 (05:05→21:03)
[2020-10-13] MEDS: SODIUM CHLORIDE 0.9% 1000ML 1,000 ML IV SCH ×3 (05:05→21:00)
[2020-10-13] MEDS: METOPROLOL TARTRATE 25 MG TAB PO SCH ×2 (08:46→23:16)
[2020-10-13] MEDS: MORPHINE SULFATE INJ 2 MG/ML SYR IV PRN ×4 (08:50→21:06)
[2020-10-13] MEDS: TRAZODONE HCL 50 MG TAB PO SCH (21:00)
[2020-10-13] MEDS: ACETAMINOPHEN 325 MG TAB PO PRN (21:00)
[2020-10-14] VITALS (9 sets, daily range): BP systolic 133–184; BP diastolic 89–139
[2020-10-14] MEDS: MORPHINE SULFATE INJ 2 MG/ML SYR IV PRN ×4 (03:21→22:15)
[2020-10-14] MEDS: PIPER-TAZ 3.375 GM 50 ML IV SCH ×3 (06:12→22:00)
[2020-10-14] MEDS ORDERED: HYDRALAZINE HCL 20 MG/ML VIAL IV PRN (09:00)
[2020-10-14] MEDS: METOPROLOL TARTRATE 25 MG TAB PO SCH ×2 (10:00→16:55)
[2020-10-14] MEDS: AMLODIPINE BESYLATE 5 MG TAB PO SCH (10:00)
[2020-10-14] MEDS: ONDANSETRON HCL INJ 2MG/ML 2ML 2 MG/ML VIAL IV PRN ×3 (10:02→22:15)
[2020-10-14] MEDS: TRAZODONE HCL 50 MG TAB PO SCH (22:00)
[2020-10-15 00:04] VITALS: BP 150/98
[2020-10-15] MEDS: MORPHINE SULFATE INJ 2 MG/ML SYR IV PRN ×3 (03:15→16:18)
[2020-10-15] MEDS: ONDANSETRON HCL INJ 2MG/ML 2ML 2 MG/ML VIAL IV PRN ×3 (03:15→16:18)
[2020-10-15 04:00] VITALS: BP 152/92
[2020-10-15] MEDS: PIPER-TAZ 3.375 GM 50 ML IV SCH ×2 (06:48→14:00)
[2020-10-15 07:30] VITALS: BP 121/94
[2020-10-15] MEDS: METOPROLOL TARTRATE 25 MG TAB PO SCH ×2 (08:57→18:11)
[2020-10-15] MEDS: AMLODIPINE BESYLATE 5 MG TAB PO SCH (08:57)
[2020-10-15 12:00] VITALS: BP 100/76
[2020-10-15 16:00] VITALS: BP 152/101
== END 2020-10-15 19:45 | DRG 698 ==
LOC: ER 17:36 → ERHOLD 21:15 → MED/SURG3 10-11 13:30
PROVIDERS: ADMIT Internal Medicine; ATTEND Internal Medicine
PROC: 0T2BX0Z Change Drainage Device in Bladder, External Approach (ICD-10-PCS; principal; 2020-10-08)
DX: T83.592A Infection and inflammatory reaction due to indwelling ureteral stent, initial encounter (principal); A41.9 Sepsis, unspecified organism; L89.154 Pressure ulcer of sacral region, stage 4; L89.894 Pressure ulcer of other site, stage 4; G82.50 Quadriplegia, unspecified; J69.0 Pneumonitis due to inhalation of food and vomit; R65.20 Severe sepsis without septic shock; J96.10 Chronic respiratory failure, unspecified whether with hypoxia or hypercapnia; Z16.12 Extended spectrum beta lactamase (ESBL) resistance; E44.0 Moderate protein-calorie malnutrition; Z68.1 Body mass index [BMI] 19.9 or less, adult; N30.00 Acute cystitis without hematuria; G89.4 Chronic pain syndrome; I10 Essential (primary) hypertension; G90.4 Autonomic dysreflexia; Z93.2 Ileostomy status; Z87.898 Personal history of other specified conditions; Z87.440 Personal history of urinary (tract) infections; Z93.0 Tracheostomy status; Z74.01 Bed confinement status; Z93.3 Colostomy status; B96.4 Proteus (mirabilis) (morganii) as the cause of diseases classified elsewhere; D64.9 Anemia, unspecified; N31.9 Neuromuscular dysfunction of bladder, unspecified; B96.20 Unspecified Escherichia coli [E. coli] as the cause of diseases classified elsewhere
CPT/HCPCS: 36415; 51102; 71045; 80053; 81001; 82550; 82553; 83605; 84484; 85025; 87040; 87086; 87186; 93005; 99251; 99285; J2270; J2405; J2543; J3370; J7030; Q9967; U0002

== ENCOUNTER 2021-02-17 15:19 | Inpatient (IN) | payer MEDICARE, OTHER ==
[~2021-02-17] VITALS: Ht 170.2 cm; Wt 54.4 kg
[2021-02-17] MEDS ORDERED: CEFTRIAXONE 1 GM VIAL IV STA (15:34)
[2021-02-17] MEDS ORDERED: CEFTRIAXONE 1 GM in SODIUM CHLORIDE 0.9% 50ML 50 ML IV ONE (16:00)
[2021-02-17 16:27] LABS: CLARITY,URINE CLOUDY (CLEAR); COLOR,URINE BROWN (YELLOW); KETONES,URINE NEGATIVE (NEGATIVE); LEUKOCYTE ESTERASE ,URINE NEGATIVE (NEGATIVE); NITRITE,URINE POSITIVE (NEGATIVE); PROTEIN,URINE DIPSTICK 2+ (NEGATIVE); URINE UROBILINOGEN 0.2 mg/dL (0.2 - 1)
[2021-02-17 16:42] LABS: AMORPHOUS SEDIMENT,URINE MANY (FEW); BACTERIA,URINE MANY /HPF
[2021-02-17 17:01] LABS: ANION GAP 18.4 mmol/L (8-16); BLOOD UREA NITROGEN 21 mg/dL (7-26); BUN/CREATININE RATIO 36 (6-25); CALCIUM 9.7 mg/dL (8.4-10.2); CARBON DIOXIDE 20 mmol/L (22-29); CHLORIDE 106 mmol/L (98-107); CREATININE, SERUM 0.59 mg/dL (0.72-1.25); EST GLOMERULAR FILTRATION RATE > 60 ML/MIN (60-); GLUCOSE 89 mg/dL (74-118); POTASSIUM 4.4 mmol/L (3.5-5.1); SODIUM 140 mmol/L (136-145)
[2021-02-17 18:11] LABS: BASOPHILS % 0.2 % (0.0-1.0); EOSINOPHILS # (AUTO) 0.2 (0.0-0.4); EOSINOPHILS % 1.9 % (0.0-6.0); HEMATOCRIT 36.2 % (38.2-49.6); HEMOGLOBIN 11.9 g/dL (14.0-18.0); LYMPHOCYTES # (AUTO) 1.5 (1.0-3.2); LYMPHOCYTES % 19.2 % (18.0-39.1); MEAN CORPUSCULAR HEMOGLOBIN 29.5 pg (28-32); MEAN CORPUSCULAR HGB CONC 32.9 g/dL (31-35); MEAN CORPUSCULAR VOLUME 89.6 fL (81-99); MONOCYTES # (AUTO) 0.3 (0.2-0.8); MONOCYTES % 4.2 % (4.4-11.3); NEUTROPHILS % 74.1 % (38.7-80.0); PLATELET COUNT 457 x10e3/uL (140-360); RED BLOOD COUNT 4.04 x10e6/uL (4.3-5.7); RED CELL DISTRIBUTION WIDTH 15.4 % (11.7-14.4)
[2021-02-17] MEDS: SODIUM CHLORIDE 0.9% 1000ML 1,000 ML IV SCH ×2 (18:21→20:02)
[2021-02-17] MEDS ORDERED: ACETAMINOPHEN 325 MG TAB PO PRN (19:45)
[2021-02-17] MEDS ORDERED: ACETAMINOPHEN 325 MG TAB ONE (20:00)
[2021-02-18] MEDS: SODIUM CHLORIDE 0.9% 1000ML 1,000 ML IV SCH ×2 (04:33→14:36)
[2021-02-18] MEDS: CEFTRIAXONE 1 GM in SODIUM CHLORIDE 0.9% 50ML 50 ML IV SCH ×2 (05:52→17:13)
[2021-02-18 05:56] LABS: BASOPHILS % 0.3 % (0.0-1.0); EOSINOPHILS # (AUTO) 0.2 (0.0-0.4); EOSINOPHILS % 3.2 % (0.0-6.0); HEMATOCRIT 35.6 % (38.2-49.6); HEMOGLOBIN 11.3 g/dL (14.0-18.0); LYMPHOCYTES # (AUTO) 2.3 (1.0-3.2); LYMPHOCYTES % 37.6 % (18.0-39.1); MEAN CORPUSCULAR HEMOGLOBIN 30.1 pg (28-32); MEAN CORPUSCULAR HGB CONC 31.7 g/dL (31-35); MEAN CORPUSCULAR VOLUME 94.7 fL (81-99); MONOCYTES # (AUTO) 0.3 (0.2-0.8); MONOCYTES % 4.8 % (4.4-11.3); NEUTROPHILS # (AUTO) 3.2 (2.1-6.9); NEUTROPHILS % 53.9 % (38.7-80.0); PLATELET COUNT 282 x10e3/uL (140-360); RED BLOOD COUNT 3.76 x10e6/uL (4.3-5.7); RED CELL DISTRIBUTION WIDTH 17.2 % (11.7-14.4)
[2021-02-18] MEDS ORDERED: CEFTRIAXONE 1 GM VIAL IV SCH (06:00)
[2021-02-18 06:11] LABS: ANION GAP 14.9 mmol/L (8-16); BLOOD UREA NITROGEN 19 mg/dL (7-26); BUN/CREATININE RATIO 37 (6-25); CALCIUM 8.7 mg/dL (8.4-10.2); CARBON DIOXIDE 18 mmol/L (22-29); CHLORIDE 114 mmol/L (98-107); CREATININE, SERUM 0.51 mg/dL (0.72-1.25); EST GLOMERULAR FILTRATION RATE > 60 ML/MIN (60-); GLUCOSE 74 mg/dL (74-118); POTASSIUM 3.9 mmol/L (3.5-5.1); SODIUM 143 mmol/L (136-145)
[2021-02-18] MEDS: MORPHINE SULFATE INJ 2 MG/ML SYR IV PRN ×4 (10:06→22:55)
[2021-02-18] MEDS: METOPROLOL TARTRATE 25 MG TAB PO SCH (10:06)
[2021-02-18] MEDS: ONDANSETRON HCL INJ 2MG/ML 2ML 2 MG/ML VIAL IV PRN ×4 (10:06→22:55)
[2021-02-18 13:57] VITALS: BP 138/81
[2021-02-18 14:07] VITALS: BP 138/81
[2021-02-18 15:35] VITALS: BP 119/94
[2021-02-18 20:01] VITALS: BP 119/94
[2021-02-18 20:25] VITALS: BP 151/96
[2021-02-18] MEDS: TRAZODONE HCL 50 MG TAB PO SCH (21:28)
[2021-02-19] VITALS (9 sets, daily range): BP systolic 100–179; BP diastolic 61–119
[2021-02-19] MEDS: ONDANSETRON HCL INJ 2MG/ML 2ML 2 MG/ML VIAL IV PRN (03:14)
[2021-02-19] MEDS: MORPHINE SULFATE INJ 2 MG/ML SYR IV PRN ×5 (03:14→22:00)
[2021-02-19] MEDS: CEFTRIAXONE 1 GM in SODIUM CHLORIDE 0.9% 50ML 50 ML IV SCH (05:37)
[2021-02-19] MEDS: SODIUM CHLORIDE 0.9% 1000ML 1,000 ML IV SCH (05:37)
[2021-02-19] MEDS: CEFTAZIDIME SOD 2 GM/NS 100ML 100 ML IV SCH (16:54)
[2021-02-19] MEDS: TRAZODONE HCL 50 MG TAB PO SCH (20:56)
[2021-02-19] MEDS ORDERED: CEFTAZIDIME 1 GM VIAL IV SCH (22:00)
[2021-02-20] MEDS: CEFTAZIDIME SOD 2 GM/NS 100ML 100 ML IV SCH ×2 (01:20→09:41)
[2021-02-20] MEDS: MORPHINE SULFATE INJ 2 MG/ML SYR IV PRN ×2 (01:38→09:30)
[2021-02-20 05:07] VITALS: BP 163/101
[2021-02-20] MEDS ORDERED: HYDRALAZINE HCL 20 MG/ML VIAL IV PRN (05:15)
[2021-02-20 08:10] VITALS: BP 150/96
[2021-02-20 08:39] VITALS: BP 150/96
[2021-02-20] MEDS: ONDANSETRON HCL INJ 2MG/ML 2ML 2 MG/ML VIAL IV PRN (09:30)
[2021-02-20] MEDS: METOPROLOL TARTRATE 25 MG TAB PO SCH (09:42)
== END 2021-02-20 11:42 | DRG 698 ==
LOC: ER 15:28 → ERHOLD 17:51 → MED/SURG3 02-18 13:36
PROVIDERS: ADMIT Internal Medicine; ATTEND Internal Medicine
DX: T83.510A Infection and inflammatory reaction due to cystostomy catheter, initial encounter (principal); L89.324 Pressure ulcer of left buttock, stage 4; L89.894 Pressure ulcer of other site, stage 4; G82.50 Quadriplegia, unspecified; N30.00 Acute cystitis without hematuria; E44.1 Mild protein-calorie malnutrition; Z68.1 Body mass index [BMI] 19.9 or less, adult; I10 Essential (primary) hypertension; R06.02 Shortness of breath; N31.9 Neuromuscular dysfunction of bladder, unspecified; Z88.8 Allergy status to other drugs, medicaments and biological substances; N39.8 Other specified disorders of urinary system; Z93.3 Colostomy status; G89.4 Chronic pain syndrome; B96.89 Other specified bacterial agents as the cause of diseases classified elsewhere; B95.4 Other streptococcus as the cause of diseases classified elsewhere
CPT/HCPCS: 36415; 80048; 81001; 83605; 85025; 87040; 87086; 87186; 96360; 96361; 97139; 99251; 99285; J0360; J0696; J0715; J2270; J2405; J7030; U0002

== ENCOUNTER 2021-04-07 15:33 | Emergency (ER) | payer OTHER ==
[~2021-04-07] VITALS: Ht 170.2 cm; Wt 54.4 kg
== END 2021-04-07 19:34 | disposition home or self-care (01) ==
LOC: ER 17:00
DX: T83.091A Other mechanical complication of indwelling urethral catheter, initial encounter (principal)
CPT/HCPCS: 99284

== ENCOUNTER 2021-04-19 16:07 | Emergency (ER) | payer MEDICARE, OTHER ==
[~2021-04-19] VITALS: Ht 170.2 cm; Wt 54.4 kg
== END 2021-04-19 18:32 | disposition home or self-care (01) ==
LOC: ER 16:45
DX: Z46.6 Encounter for fitting and adjustment of urinary device (principal); G82.50 Quadriplegia, unspecified; Z93.3 Colostomy status; Z93.0 Tracheostomy status
CPT/HCPCS: 99283

== ENCOUNTER 2021-05-12 15:45 | Emergency (ER) | payer MEDICARE, OTHER ==
[2021-05-12] MEDS ORDERED: GENTAMICIN 60MG/NS 50ML 50 ML IV STA (16:37)
[2021-05-12] MEDS ORDERED: GENTAMICIN SULFATE 40 MG/ML 2 ML VIAL IM ONE (17:00)
== END 2021-05-12 17:54 | disposition home or self-care (01) ==
LOC: ER 16:04
DX: N39.0 Urinary tract infection, site not specified (principal); G82.50 Quadriplegia, unspecified; Z88.8 Allergy status to other drugs, medicaments and biological substances; Z93.0 Tracheostomy status; Z93.3 Colostomy status
CPT/HCPCS: 87086; 87186; 99283; J1580

== ENCOUNTER 2021-05-28 13:47 | Inpatient (IN) | payer MEDICARE, OTHER ==
[~2021-05-28] VITALS: Ht 170.2 cm; Wt 46.7 kg
[2021-05-28 14:22] LABS: BASOPHILS % 0.5 % (0.0-1.0); EOSINOPHILS # (AUTO) 0.1 (0.0-0.4); EOSINOPHILS % 1.9 % (0.0-6.0); HEMATOCRIT 41.4 % (38.2-49.6); HEMOGLOBIN 13.1 g/dL (14.0-18.0); LYMPHOCYTES # (AUTO) 1.5 (1.0-3.2); LYMPHOCYTES % 25.3 % (18.0-39.1); MEAN CORPUSCULAR HGB CONC 31.6 g/dL (31-35); MONOCYTES # (AUTO) 0.3 (0.2-0.8); MONOCYTES % 4.8 % (4.4-11.3); NEUTROPHILS # (AUTO) 3.9 (2.1-6.9); NEUTROPHILS % 67.3 % (38.7-80.0); PLATELET COUNT 383 x10e3/uL (140-360); RED BLOOD COUNT 4.36 x10e6/uL (4.3-5.7); RED CELL DISTRIBUTION WIDTH 12.7 % (11.7-14.4)
[2021-05-28 14:39] LABS: ALBUMIN 3.9 g/dL (3.5-5.0); ALBUMIN/GLOBULIN RATIO 0.9 (0.8-2.0); ANION GAP 15.9 mmol/L (8-16); CALCIUM 9.2 mg/dL (8.4-10.2); CREATININE, SERUM 0.63 mg/dL (0.72-1.25); POTASSIUM 3.9 mmol/L (3.5-5.1)
[2021-05-28] MEDS ORDERED: SODIUM CHLORIDE 0.9% 1000ML 1,000 ML IV ONE (15:45)
[2021-05-28] MEDS ORDERED: SODIUM CHLORIDE 0.9% 1000ML 1,000 ML ONE (15:45)
[2021-05-28 16:32] LABS: CLARITY,URINE HAZY (CLEAR); COLOR,URINE YELLOW (YELLOW); KETONES,URINE NEGATIVE (NEGATIVE); LEUKOCYTE ESTERASE ,URINE MODERATE (NEGATIVE); NITRITE,URINE POSITIVE (NEGATIVE); PROTEIN,URINE DIPSTICK 1+ (NEGATIVE); URINE UROBILINOGEN 0.2 mg/dL (0.2 - 1)
[2021-05-28] MEDS ORDERED: KETOROLAC TROMETHAMINE 30 MG/ML VIAL IV STA (16:37)
[2021-05-28 16:43] LABS: BACTERIA,URINE MODERATE /HPF; RBC,URINE 0-5 /HPF (0-5)
[2021-05-28 16:44] LABS: AMORPHOUS SEDIMENT,URINE MODERATE (FEW); OTHER CRYSTALS,URINE PRESENT
[2021-05-28] MEDS ORDERED: PIPERACILLIN/TAZO 4.5 GM 100 ML IV SCH (17:00)
[2021-05-28 17:24] LABS: CLARITY,URINE HAZY (CLEAR); COLOR,URINE STRAW (YELLOW); KETONES,URINE NEGATIVE (NEGATIVE); LEUKOCYTE ESTERASE ,URINE MODERATE (NEGATIVE); NITRITE,URINE POSITIVE (NEGATIVE); PROTEIN,URINE DIPSTICK TRACE (NEGATIVE); URINE UROBILINOGEN 0.2 mg/dL (0.2 - 1)
[2021-05-28 17:29] LABS: BACTERIA,URINE MODERATE /HPF; CALCIUM OXALATE CRYSTALS,UR FEW (FEW); RBC,URINE 0-5 /HPF (0-5); WBC,URINE (MAN) 0-5 /HPF (0-5)
[2021-05-28 17:30] LABS: AMORPHOUS SEDIMENT,URINE MANY (FEW)
[2021-05-28 21:00] VITALS: BP 95/68
[2021-05-28] MEDS ORDERED: ONDANSETRON HCL INJ 2MG/ML 2ML 2 MG/ML VIAL IV PRN (22:15)
[2021-05-28] MEDS: MORPHINE SULFATE INJ 2 MG/ML SYR IV PRN (22:35)
[2021-05-29] VITALS (9 sets, daily range): BP systolic 93–139; BP diastolic 67–99
[2021-05-29] MEDS ORDERED: SODIUM CHLORIDE 0.9% 250ML 250 ML ONE (00:45)
[2021-05-29] MEDS: PIPERACILLIN/TAZOBACTAM 3.375 GM in SODIUM CHLORIDE 0.9% 50ML 50 ML IV SCH ×4 (00:52→17:30)
[2021-05-29] MEDS: MORPHINE SULFATE INJ 2 MG/ML SYR IV PRN ×5 (02:35→19:57)
[2021-05-29] MEDS: METOPROLOL TARTRATE 25 MG TAB PO SCH (09:00)
[2021-05-29] MEDS: TRAZODONE HCL 50 MG TAB PO SCH (19:57)
[2021-05-30] VITALS (8 sets, daily range): BP systolic 89–134; BP diastolic 58–86
[2021-05-30] MEDS: PIPERACILLIN/TAZOBACTAM 3.375 GM in SODIUM CHLORIDE 0.9% 50ML 50 ML IV SCH ×4 (01:00→17:09)
[2021-05-30] MEDS: MORPHINE SULFATE INJ 2 MG/ML SYR IV PRN ×5 (01:21→23:20)
[2021-05-30] MEDS ORDERED: LACTULOSE SYRUP 20 GM/30 ML UDC PO PRN (11:00)
[2021-05-30] MEDS: METOPROLOL TARTRATE 25 MG TAB PO SCH (11:52)
[2021-05-30] MEDS: LUBIPROSTONE 24 MCG CAP PO SCH (17:09)
[2021-05-30] MEDS: TRAZODONE HCL 50 MG TAB PO SCH (20:39)
[2021-05-31] VITALS (8 sets, daily range): BP systolic 99–158; BP diastolic 72–110
[2021-05-31] MEDS: MORPHINE SULFATE INJ 2 MG/ML SYR IV PRN ×5 (05:41→21:56)
[2021-05-31] MEDS: PIPERACILLIN/TAZOBACTAM 3.375 GM in SODIUM CHLORIDE 0.9% 50ML 50 ML IV SCH ×5 (05:41→18:00)
[2021-05-31] MEDS: METOPROLOL TARTRATE 25 MG TAB PO SCH (08:53)
[2021-05-31] MEDS: LUBIPROSTONE 24 MCG CAP PO SCH ×2 (08:53→18:00)
[2021-05-31] MEDS: TRAZODONE HCL 50 MG TAB PO SCH (21:48)
[2021-06-01] VITALS (7 sets, daily range): BP systolic 111–173; BP diastolic 79–139
[2021-06-01] MEDS: MORPHINE SULFATE INJ 2 MG/ML SYR IV PRN ×7 (02:00→22:19)
[2021-06-01] MEDS: PIPERACILLIN/TAZOBACTAM 3.375 GM in SODIUM CHLORIDE 0.9% 50ML 50 ML IV SCH ×6 (05:58→17:16)
[2021-06-01] MEDS: LUBIPROSTONE 24 MCG CAP PO SCH ×2 (08:55→17:16)
[2021-06-01] MEDS: METOPROLOL TARTRATE 25 MG TAB PO SCH (08:55)
[2021-06-01] MEDS: TRAZODONE HCL 50 MG TAB PO SCH (21:00)
[2021-06-02] VITALS (8 sets, daily range): BP systolic 84–187; BP diastolic 58–117
[2021-06-02] MEDS: PIPERACILLIN/TAZOBACTAM 3.375 GM in SODIUM CHLORIDE 0.9% 50ML 50 ML IV SCH ×4 (00:22→16:39)
[2021-06-02] MEDS: HYDRALAZINE HCL 20 MG/ML VIAL IV PRN (00:47)
[2021-06-02] MEDS: MORPHINE SULFATE INJ 2 MG/ML SYR IV PRN ×5 (02:19→20:59)
[2021-06-02] MEDS: METOPROLOL TARTRATE 25 MG TAB PO SCH (09:00)
[2021-06-02] MEDS: LUBIPROSTONE 24 MCG CAP PO SCH ×2 (09:21→16:39)
[2021-06-02] MEDS: ACETAMINOPHEN 325 MG TAB PO PRN (10:24)
[2021-06-02] MEDS ORDERED: SODIUM CHLORIDE 0.9% 250ML 250 ML ONE (11:32)
[2021-06-02] MEDS ORDERED: ONDANSETRON HCL 4 MG ORAL DISINTEGRATING TAB PO PRN (12:15)
[2021-06-02 12:55] LABS: ANION GAP 13.9 mmol/L (8-16); CALCIUM 8.9 mg/dL (8.4-10.2); CREATININE, SERUM 0.64 mg/dL (0.72-1.25); POTASSIUM 3.9 mmol/L (3.5-5.1)
[2021-06-02] MEDS: TRAZODONE HCL 50 MG TAB PO SCH (21:01)
[2021-06-03] VITALS (9 sets, daily range): BP systolic 89–183; BP diastolic 52–132
[2021-06-03] MEDS: MORPHINE SULFATE INJ 2 MG/ML SYR IV PRN ×5 (02:10→21:36)
[2021-06-03] MEDS: PIPERACILLIN/TAZOBACTAM 3.375 GM in SODIUM CHLORIDE 0.9% 50ML 50 ML IV SCH ×4 (03:21→16:45)
[2021-06-03] MEDS: METOPROLOL TARTRATE 25 MG TAB PO SCH (08:45)
[2021-06-03] MEDS: LUBIPROSTONE 24 MCG CAP PO SCH ×2 (08:45→16:45)
[2021-06-03] MEDS: TRAZODONE HCL 50 MG TAB PO SCH (21:34)
[2021-06-03] MEDS: CLONIDINE HCL 0.2 MG TAB PO PRN (21:35)
[2021-06-04] VITALS (8 sets, daily range): BP systolic 90–169; BP diastolic 58–119
[2021-06-04] MEDS: PIPERACILLIN/TAZOBACTAM 3.375 GM in SODIUM CHLORIDE 0.9% 50ML 50 ML IV SCH ×5 (01:36→23:01)
[2021-06-04] MEDS: MORPHINE SULFATE INJ 2 MG/ML SYR IV PRN ×4 (01:36→17:38)
[2021-06-04] MEDS: METOPROLOL TARTRATE 25 MG TAB PO SCH ×2 (08:33→16:12)
[2021-06-04] MEDS: LUBIPROSTONE 24 MCG CAP PO SCH ×2 (08:34→16:11)
[2021-06-04] MEDS: HYDRALAZINE HCL 20 MG/ML VIAL IV PRN (16:12)
[2021-06-04] MEDS: TRAZODONE HCL 50 MG TAB PO SCH (23:01)
[2021-06-05] VITALS (7 sets, daily range): BP systolic 107–164; BP diastolic 71–114
[2021-06-05] MEDS: PIPERACILLIN/TAZOBACTAM 3.375 GM in SODIUM CHLORIDE 0.9% 50ML 50 ML IV SCH ×3 (05:11→17:00)
[2021-06-05] MEDS: MORPHINE SULFATE INJ 2 MG/ML SYR IV PRN ×4 (08:18→21:50)
[2021-06-05] MEDS: METOPROLOL TARTRATE 25 MG TAB PO SCH (08:19)
[2021-06-05] MEDS: LUBIPROSTONE 24 MCG CAP PO SCH ×2 (08:19→16:27)
[2021-06-05] MEDS: HYDRALAZINE HCL 20 MG/ML VIAL IV PRN (11:19)
[2021-06-05] MEDS: TRAZODONE HCL 50 MG TAB PO SCH (21:50)
[2021-06-06] VITALS (7 sets, daily range): BP systolic 116–163; BP diastolic 79–98
[2021-06-06] MEDS: PIPERACILLIN/TAZOBACTAM 3.375 GM in SODIUM CHLORIDE 0.9% 50ML 50 ML IV SCH ×2 (00:34→05:12)
[2021-06-06] MEDS: MORPHINE SULFATE INJ 2 MG/ML SYR IV PRN ×2 (05:11→09:08)
[2021-06-06] MEDS: HYDRALAZINE HCL 20 MG/ML VIAL IV PRN (05:12)
[2021-06-06] MEDS: LUBIPROSTONE 24 MCG CAP PO SCH ×2 (08:17→16:37)
[2021-06-06] MEDS: METOPROLOL TARTRATE 25 MG TAB PO SCH (08:18)
[2021-06-06] MEDS: ACETAMINOPHEN 325 MG TAB PO PRN (14:00)
[2021-06-06] MEDS ORDERED: HEPARIN 500 UNITS/5ML MDV INJ ONE (15:00)
[2021-06-06] MEDS: CLONIDINE HCL 0.2 MG TAB PO PRN (19:30)
[2021-06-06] MEDS: TRAZODONE HCL 50 MG TAB PO SCH (21:00)
[2021-06-06] MEDS ORDERED: AMLODIPINE BESYLATE 5 MG TAB PO STA (21:58)
[2021-06-07 01:13] VITALS: BP 163/98
[2021-06-07 04:45] VITALS: BP 123/72
[2021-06-07 07:36] VITALS: BP 160/95
[2021-06-07 08:09] VITALS: BP 160/95
[2021-06-07] MEDS: METOPROLOL TARTRATE 25 MG TAB PO SCH (08:59)
[2021-06-07] MEDS: LUBIPROSTONE 24 MCG CAP PO SCH (08:59)
[2021-06-07 09:07] VITALS: BP 155/88
== END 2021-06-07 09:36 | disposition home or self-care (01) | DRG 698 ==
LOC: ER 13:50 → ERHOLD 17:04 → MED/SURG3 20:36
PROVIDERS: ADMIT Internal Medicine; ATTEND Internal Medicine
DX: T83.510A Infection and inflammatory reaction due to cystostomy catheter, initial encounter (principal); G82.50 Quadriplegia, unspecified; N39.0 Urinary tract infection, site not specified; J96.10 Chronic respiratory failure, unspecified whether with hypoxia or hypercapnia; Z16.24 Resistance to multiple antibiotics; Z88.8 Allergy status to other drugs, medicaments and biological substances; B96.89 Other specified bacterial agents as the cause of diseases classified elsewhere; G89.4 Chronic pain syndrome; R53.81 Other malaise; Z93.0 Tracheostomy status; Z93.2 Ileostomy status; Z93.3 Colostomy status; R07.89 Other chest pain; Z20.822 Contact with and (suspected) exposure to COVID-19; D64.9 Anemia, unspecified; N31.9 Neuromuscular dysfunction of bladder, unspecified; Z87.442 Personal history of urinary calculi; Z87.440 Personal history of urinary (tract) infections
CPT/HCPCS: 36415; 71045; 80048; 80053; 81001; 82948; 83605; 83880; 84484; 85025; 87040; 87086; 87186; 93005; 99251; 99285; J0360; J1885; J2270; J2543; J7030; J7050; U0002

== ENCOUNTER 2021-07-13 22:42 | Emergency (ER) | payer MEDICARE, OTHER ==
[~2021-07-13] VITALS: Ht 170.2 cm; Wt 59.0 kg
[2021-07-13] MEDS ORDERED: SODIUM CHLORIDE 0.9% 1000ML 1,000 ML IV STA (23:59)
[2021-07-14 00:49] LABS: BASOPHILS % 0.5 % (0.0-1.0); EOSINOPHILS # (AUTO) 0.2 (0.0-0.4); HEMATOCRIT 37.7 % (38.2-49.6); HEMOGLOBIN 12.1 g/dL (14.0-18.0); LYMPHOCYTES # (AUTO) 2.4 (1.0-3.2); LYMPHOCYTES % 31.7 % (18.0-39.1); MEAN CORPUSCULAR HEMOGLOBIN 29.8 pg (28-32); MEAN CORPUSCULAR HGB CONC 32.1 g/dL (31-35); MEAN CORPUSCULAR VOLUME 92.9 fL (81-99); MONOCYTES # (AUTO) 0.6 (0.2-0.8); MONOCYTES % 8.3 % (4.4-11.3); NEUTROPHILS # (AUTO) 4.3 (2.1-6.9); NEUTROPHILS % 57.1 % (38.7-80.0); PLATELET COUNT 393 x10e3/uL (140-360); RED BLOOD COUNT 4.06 x10e6/uL (4.3-5.7); RED CELL DISTRIBUTION WIDTH 13.3 % (11.7-14.4)
[2021-07-14 01:02] LABS: ALBUMIN 3.6 g/dL (3.5-5.0); ALBUMIN/GLOBULIN RATIO 0.8 (0.8-2.0); ANION GAP 15.8 mmol/L (8-16); CALCIUM 9.3 mg/dL (8.4-10.2); CREATININE, SERUM 0.73 mg/dL (0.72-1.25); POTASSIUM 3.8 mmol/L (3.5-5.1)
[2021-07-14 01:43] LABS: CLARITY,URINE CLOUDY (CLEAR); COLOR,URINE AMBER (YELLOW); KETONES,URINE NEGATIVE (NEGATIVE); LEUKOCYTE ESTERASE ,URINE TRACE (NEGATIVE); NITRITE,URINE NEGATIVE (NEGATIVE); PROTEIN,URINE DIPSTICK 2+ (NEGATIVE); URINE UROBILINOGEN 0.2 mg/dL (0.2 - 1)
[2021-07-14 02:13] LABS: BACTERIA,URINE MANY /HPF; CALCIUM OXALATE CRYSTALS,UR FEW (FEW); EPITHELIAL CELLS,URINE FEW /LPF; RBC,URINE 21-50 /HPF (0-5); TRIPLE PHOSPHATE CRYSTAL,UR MANY (FEW)
[2021-07-14] MEDS ORDERED: CIPROFLOXACIN 500 MG TAB PO STA (02:17)
[2021-07-14] MEDS ORDERED: CIPRO500 MG PO (02:19)
== END 2021-07-14 04:43 | disposition home or self-care (01) ==
LOC: ER 22:54
DX: N39.0 Urinary tract infection, site not specified (principal)
CPT/HCPCS: 36415; 80053; 81001; 85025; 87086; 87186; 99284; J7030

== ENCOUNTER 2021-10-30 17:12 | Emergency (ER) | payer MEDICARE, OTHER ==
[~2021-10-30] VITALS: Ht 170.2 cm; Wt 59.0 kg
[~2021-10-30 17:12] MED LIST changes: +CIPRO500 MG PO
[2021-10-30] MEDS ORDERED: CEFDINIR300 MG PO (18:40)
[2021-10-30 18:41] LABS: CLARITY,URINE HAZY (CLEAR); COLOR,URINE YELLOW (YELLOW); KETONES,URINE NEGATIVE (NEGATIVE); LEUKOCYTE ESTERASE ,URINE SMALL (NEGATIVE); NITRITE,URINE NEGATIVE (NEGATIVE); PROTEIN,URINE DIPSTICK 2+ (NEGATIVE); URINE UROBILINOGEN 0.2 mg/dL (0.2 - 1)
[2021-10-30 18:46] LABS: AMORPHOUS SEDIMENT,URINE MODERATE (FEW); BACTERIA,URINE MANY /HPF
== END 2021-10-30 20:02 | disposition home or self-care (01) ==
LOC: ER 17:42
DX: Z46.6 Encounter for fitting and adjustment of urinary device (principal); N39.0 Urinary tract infection, site not specified; I10 Essential (primary) hypertension; G82.50 Quadriplegia, unspecified; F41.9 Anxiety disorder, unspecified
CPT/HCPCS: 81001; 87086; 99283

== ENCOUNTER 2021-12-12 14:53 | Inpatient (IN) | payer MEDICARE, OTHER ==
[~2021-12-12] VITALS: Ht 170.2 cm; Wt 59.0 kg
[~2021-12-12 14:53] MED LIST changes: +CEFDINIR300 MG PO
[2021-12-12] MEDS ORDERED: SODIUM CHLORIDE 0.9% 1000ML 1,000 ML IV ONE (15:15)
[2021-12-12 15:51] LABS: BASOPHILS % 0.4 % (0.0-1.0); EOSINOPHILS # (AUTO) 0.1 (0.0-0.4); EOSINOPHILS % 1.1 % (0.0-6.0); HEMATOCRIT 40.2 % (38.2-49.6); HEMOGLOBIN 13.2 g/dL (14.0-18.0); LYMPHOCYTES % 28.3 % (18.0-39.1); MEAN CORPUSCULAR HEMOGLOBIN 31.3 pg (28-32); MEAN CORPUSCULAR HGB CONC 32.8 g/dL (31-35); MEAN CORPUSCULAR VOLUME 95.3 fL (81-99); MONOCYTES # (AUTO) 0.4 (0.2-0.8); MONOCYTES % 5.4 % (4.4-11.3); NEUTROPHILS # (AUTO) 4.6 (2.1-6.9); NEUTROPHILS % 64.5 % (38.7-80.0); PLATELET COUNT 420 x10e3/uL (140-360); RED BLOOD COUNT 4.22 x10e6/uL (4.3-5.7); RED CELL DISTRIBUTION WIDTH 13.1 % (11.7-14.4)
[2021-12-12] MEDS ORDERED: SODIUM CHLORIDE 0.9% 0 ML ONE (15:56)
[2021-12-12] MEDS: Vancomycin IV 500 MG in SODIUM CHLORIDE 0.9% 100 ML IV SCH (16:05)
[2021-12-12] MEDS: MEROPENEM 1 GM in SODIUM CHLORIDE 0.9% 100 ML IV SCH ×2 (16:05→22:28)
[2021-12-12 16:14] LABS: CLARITY,URINE TURBID (CLEAR); COLOR,URINE AMBER (YELLOW); LEUKOCYTE ESTERASE ,URINE TRACE (NEGATIVE); NITRITE,URINE NEGATIVE (NEGATIVE)
[2021-12-12 16:15] LABS: ALBUMIN 3.9 g/dL (3.5-5.0); ALBUMIN/GLOBULIN RATIO 0.8 (0.8-2.0); ANION GAP 13.9 mmol/L (8-16); CREATININE, SERUM 0.72 mg/dL (0.72-1.25); POTASSIUM 3.9 mmol/L (3.5-5.1)
[2021-12-12 16:15] LABS: BACTERIA,URINE MANY /HPF; EPITHELIAL CELLS,URINE FEW /LPF; KETONES,URINE NEGATIVE (NEGATIVE); PROTEIN,URINE DIPSTICK 2+ (NEGATIVE); RBC,URINE >50 /HPF (0-5); URINE UROBILINOGEN 0.2 mg/dL (0.2 - 1); WBC,URINE (MAN) >50 /HPF (0-5)
[2021-12-12 16:16] LABS: TRIPLE PHOSPHATE CRYSTAL,UR MANY (FEW)
[2021-12-12] MEDS ORDERED: SODIUM CHLORIDE FLUSH 10 ML SYR INJ PRN (16:30)
[2021-12-12] MEDS ORDERED: ONDANSETRON HCL INJ 2MG/ML 2ML 2 MG/ML VIAL IV PRN (16:30)
[2021-12-12] MEDS: Morphine 4mg Syringe 4 MG/ML INJ IV PRN ×2 (18:47→23:43)
[2021-12-12 19:06] VITALS: BP 93/80
[2021-12-12 21:52] VITALS: BP 93/70
[2021-12-12 22:49] VITALS: BP 93/70
[2021-12-12 23:21] VITALS: BP 93/70
[2021-12-13] VITALS (8 sets, daily range): BP systolic 113–161; BP diastolic 75–97
[2021-12-13] MEDS ORDERED: ELIQUIS5 MG PO (00:55)
[2021-12-13] MEDS ORDERED: RISPERDAL0.5 MG PO (00:56)
[2021-12-13] MEDS ORDERED: SODIUM CHLORIDE 0.9% 250ML 250 ML ONE (04:38)
[2021-12-13] MEDS: Vancomycin IV 500 MG in SODIUM CHLORIDE 0.9% 100 ML IV SCH (04:56)
[2021-12-13] MEDS: Morphine 4mg Syringe 4 MG/ML INJ IV PRN ×3 (05:24→17:54)
[2021-12-13] MEDS: MEROPENEM 1 GM in SODIUM CHLORIDE 0.9% 100 ML IV SCH ×3 (06:13→21:27)
[2021-12-13] MEDS ORDERED: AMLODIPINE BESYL5 MG PO (06:22)
[2021-12-13 07:02] LABS: BASOPHILS % 0.3 % (0.0-1.0); EOSINOPHILS # (AUTO) 0.2 (0.0-0.4); EOSINOPHILS % 3.2 % (0.0-6.0); HEMATOCRIT 33.3 % (38.2-49.6); HEMOGLOBIN 10.7 g/dL (14.0-18.0); LYMPHOCYTES # (AUTO) 2.1 (1.0-3.2); LYMPHOCYTES % 30.9 % (18.0-39.1); MEAN CORPUSCULAR HEMOGLOBIN 31.1 pg (28-32); MEAN CORPUSCULAR HGB CONC 32.1 g/dL (31-35); MEAN CORPUSCULAR VOLUME 96.8 fL (81-99); MONOCYTES # (AUTO) 0.5 (0.2-0.8); MONOCYTES % 6.8 % (4.4-11.3); NEUTROPHILS # (AUTO) 3.9 (2.1-6.9); NEUTROPHILS % 58.6 % (38.7-80.0); PLATELET COUNT 337 x10e3/uL (140-360); RED BLOOD COUNT 3.44 x10e6/uL (4.3-5.7); RED CELL DISTRIBUTION WIDTH 12.9 % (11.7-14.4)
[2021-12-13 07:08] LABS: ANION GAP 10.8 mmol/L (8-16); CALCIUM 8.5 mg/dL (8.4-10.2); CREATININE, SERUM 0.57 mg/dL (0.72-1.25); POTASSIUM 3.8 mmol/L (3.5-5.1)
[2021-12-13 16:03] LABS: BACTERIA,URINE RARE /HPF; CLARITY,URINE TURBID (CLEAR); COLOR,URINE RED (YELLOW); KETONES,URINE NEGATIVE (NEGATIVE); LEUKOCYTE ESTERASE ,URINE SMALL (NEGATIVE); NITRITE,URINE NEGATIVE (NEGATIVE); PROTEIN,URINE DIPSTICK 2+ (NEGATIVE); RBC,URINE >50 /HPF (0-5); URINE UROBILINOGEN 0.2 mg/dL (0.2 - 1); WBC,URINE (MAN) 0-5 /HPF (0-5)
[2021-12-13 16:04] LABS: EPITHELIAL CELLS,URINE FEW /LPF
[2021-12-13] MEDS: APIXABAN 5 MG TABLET PO SCH (17:30)
[2021-12-13] MEDS: METOPROLOL TARTRATE 25 MG TAB PO SCH (17:32)
[2021-12-13] MEDS: TRAZODONE HCL 50 MG TAB PO SCH (21:27)
[2021-12-14] VITALS: BP 113/82
[2021-12-14] MEDS: Morphine 4mg Syringe 4 MG/ML INJ IV PRN ×5 (00:39→21:37)
[2021-12-14 04:00] VITALS: BP 135/96
[2021-12-14] MEDS: MEROPENEM 1 GM in SODIUM CHLORIDE 0.9% 100 ML IV SCH (05:30)
[2021-12-14 06:51] LABS: BASOPHILS % 0.1 % (0.0-1.0); EOSINOPHILS # (AUTO) 0.2 (0.0-0.4); EOSINOPHILS % 2.4 % (0.0-6.0); HEMATOCRIT 34.9 % (38.2-49.6); HEMOGLOBIN 11.3 g/dL (14.0-18.0); LYMPHOCYTES # (AUTO) 1.6 (1.0-3.2); LYMPHOCYTES % 21.2 % (18.0-39.1); MEAN CORPUSCULAR HEMOGLOBIN 30.9 pg (28-32); MEAN CORPUSCULAR HGB CONC 32.4 g/dL (31-35); MEAN CORPUSCULAR VOLUME 95.4 fL (81-99); MONOCYTES # (AUTO) 0.4 (0.2-0.8); MONOCYTES % 5.8 % (4.4-11.3); NEUTROPHILS # (AUTO) 5.2 (2.1-6.9); NEUTROPHILS % 70.2 % (38.7-80.0); PLATELET COUNT 344 x10e3/uL (140-360); RED BLOOD COUNT 3.66 x10e6/uL (4.3-5.7); RED CELL DISTRIBUTION WIDTH 12.6 % (11.7-14.4)
[2021-12-14 07:12] LABS: CALCIUM 8.5 mg/dL (8.4-10.2); CREATININE, SERUM 0.54 mg/dL (0.72-1.25); MAGNESIUM 1.9 MG/DL (1.3-2.1)
[2021-12-14 08:05] VITALS: BP 136/94
[2021-12-14] MEDS: RISPERIDONE 0.5 MG TAB PO SCH (09:00)
[2021-12-14] MEDS: METOPROLOL TARTRATE 25 MG TAB PO SCH ×2 (09:10→16:03)
[2021-12-14] MEDS: APIXABAN 5 MG TABLET PO SCH ×2 (09:10→16:02)
[2021-12-14] MEDS: DOCUSATE SODIUM 100 MG CAP PO SCH (09:10)
[2021-12-14] MEDS: SENNOSIDES 8.6 MG TAB PO SCH (09:11)
[2021-12-14 11:31] VITALS: BP 142/99
[2021-12-14 16:00] VITALS: BP 147/99
[2021-12-14 20:00] VITALS: BP 143/92
[2021-12-14] MEDS: TRAZODONE HCL 50 MG TAB PO SCH (21:37)
[2021-12-15] VITALS (7 sets, daily range): BP systolic 91–152; BP diastolic 48–101
[2021-12-15] MEDS: Morphine 4mg Syringe 4 MG/ML INJ IV PRN ×6 (01:22→22:22)
[2021-12-15 06:03] LABS: BASOPHILS % 0.3 % (0.0-1.0); EOSINOPHILS # (AUTO) 0.2 (0.0-0.4); EOSINOPHILS % 2.9 % (0.0-6.0); HEMATOCRIT 34.6 % (38.2-49.6); HEMOGLOBIN 11.5 g/dL (14.0-18.0); LYMPHOCYTES # (AUTO) 2.2 (1.0-3.2); LYMPHOCYTES % 36.1 % (18.0-39.1); MEAN CORPUSCULAR HEMOGLOBIN 31.7 pg (28-32); MEAN CORPUSCULAR HGB CONC 33.2 g/dL (31-35); MEAN CORPUSCULAR VOLUME 95.3 fL (81-99); MONOCYTES # (AUTO) 0.5 (0.2-0.8); MONOCYTES % 7.8 % (4.4-11.3); NEUTROPHILS # (AUTO) 3.2 (2.1-6.9); NEUTROPHILS % 52.6 % (38.7-80.0); PLATELET COUNT 339 x10e3/uL (140-360); RED BLOOD COUNT 3.63 x10e6/uL (4.3-5.7); RED CELL DISTRIBUTION WIDTH 12.1 % (11.7-14.4)
[2021-12-15 06:18] LABS: ANION GAP 11.9 mmol/L (8-16); CALCIUM 8.9 mg/dL (8.4-10.2); CREATININE, SERUM 0.57 mg/dL (0.72-1.25); POTASSIUM 3.9 mmol/L (3.5-5.1)
[2021-12-15] MEDS: RISPERIDONE 0.5 MG TAB PO SCH (09:00)
[2021-12-15] MEDS ORDERED: ACETAMINOPHEN 325 MG TAB PO PRN (09:15)
[2021-12-15] MEDS: APIXABAN 5 MG TABLET PO SCH ×2 (10:00→17:00)
[2021-12-15] MEDS: METOPROLOL TARTRATE 25 MG TAB PO SCH ×2 (10:00→17:00)
[2021-12-15] MEDS: DOCUSATE SODIUM 100 MG CAP PO SCH (10:00)
[2021-12-15] MEDS: SENNOSIDES 8.6 MG TAB PO SCH (10:00)
[2021-12-15] MEDS: AMLODIPINE BESYLATE 5 MG TAB PO SCH (10:36)
[2021-12-15] MEDS ORDERED: BALSAM PERU/CASTOR OIL 60 GM OINT...G. TP PRN (16:30)
[2021-12-15] MEDS: TRAZODONE HCL 50 MG TAB PO SCH (22:01)
[2021-12-15] MEDS: NYSTATIN/TRIAMCINOLONE 15 GM CR TOP SCH (22:01)
[2021-12-16] VITALS (7 sets, daily range): BP systolic 116–138; BP diastolic 65–107
[2021-12-16] MEDS: Morphine 4mg Syringe 4 MG/ML INJ IV PRN ×4 (02:54→16:25)
[2021-12-16] MEDS: RISPERIDONE 0.5 MG TAB PO SCH (09:00)
[2021-12-16] MEDS: DOCUSATE SODIUM 100 MG CAP PO SCH (09:42)
[2021-12-16] MEDS: APIXABAN 5 MG TABLET PO SCH ×2 (09:42→17:11)
[2021-12-16] MEDS: SENNOSIDES 8.6 MG TAB PO SCH (09:43)
[2021-12-16] MEDS: METOPROLOL TARTRATE 25 MG TAB PO SCH ×2 (09:43→17:11)
[2021-12-16] MEDS: AMLODIPINE BESYLATE 5 MG TAB PO SCH (09:43)
[2021-12-16] MEDS ORDERED: ONDANSETRON HCL 4 MG ORAL DISINTEGRATING TAB PO PRN (12:15)
[2021-12-16] MEDS: NYSTATIN/TRIAMCINOLONE 15 GM CR TOP SCH ×2 (16:05→17:12)
== END 2021-12-16 21:50 | disposition home or self-care (01) | DRG 689 ==
LOC: ER 15:00 → ERHOLD 16:28 → MED/SURG 18:15 → MED/SURG2 18:23
PROVIDERS: ADMIT Internal Medicine; ATTEND Internal Medicine
PROC: 0T2BX0Z Change Drainage Device in Bladder, External Approach (ICD-10-PCS; principal; 2021-12-13)
DX: N39.0 Urinary tract infection, site not specified (principal); L89.153 Pressure ulcer of sacral region, stage 3; G82.50 Quadriplegia, unspecified; E87.2 Acidosis; Z93.3 Colostomy status; I10 Essential (primary) hypertension; Z87.440 Personal history of urinary (tract) infections; F41.9 Anxiety disorder, unspecified; Z93.0 Tracheostomy status; Z88.8 Allergy status to other drugs, medicaments and biological substances; Z74.01 Bed confinement status; Z93.1 Gastrostomy status; B96.89 Other specified bacterial agents as the cause of diseases classified elsewhere; Z20.822 Contact with and (suspected) exposure to COVID-19; G89.4 Chronic pain syndrome; N41.9 Inflammatory disease of prostate, unspecified; L89.222 Pressure ulcer of left hip, stage 2; L89.212 Pressure ulcer of right hip, stage 2; B95.4 Other streptococcus as the cause of diseases classified elsewhere; L60.0 Ingrowing nail; F20.9 Schizophrenia, unspecified
CPT/HCPCS: 36415; 71045; 80048; 80053; 80202; 81001; 82948; 83605; 83735; 85025; 87040; 87086; 87186; 93005; 94799; 99251; 99284; J2185; J2270; J2405; J3370; J7030; J7050; U0002

== ENCOUNTER 2022-01-21 16:46 | Inpatient (IN) | payer MEDICARE, OTHER ==
[~2022-01-21] VITALS: Ht 167.6 cm; Wt 50.5 kg
[~2022-01-21 16:46] MED LIST changes: +AMLODIPINE BESYL5 MG PO; +ELIQUIS5 MG PO
[2022-01-21] MEDS ORDERED: CEFTRIAXONE 1 GM VIAL IV SCH (17:15)
[2022-01-21] MEDS ORDERED: ACETAMINOPHEN 325 MG TAB PO ONE (17:15)
[2022-01-21] MEDS ORDERED: SODIUM CHLORIDE 0.9% 1000ML 1,770 ML IV ONE (17:15)
[2022-01-21 18:35] LABS: BASOPHILS % 0.1 % (0.0-1.0); EOSINOPHILS % 0.1 % (0.0-6.0); HEMATOCRIT 37.6 % (38.2-49.6); HEMOGLOBIN 12.5 g/dL (14.0-18.0); LYMPHOCYTES % 11.6 % (18.0-39.1); MEAN CORPUSCULAR HEMOGLOBIN 31.3 pg (28-32); MEAN CORPUSCULAR HGB CONC 33.2 g/dL (31-35); MONOCYTES # (AUTO) 0.5 (0.2-0.8); MONOCYTES % 5.2 % (4.4-11.3); NEUTROPHILS # (AUTO) 7.3 (2.1-6.9); NEUTROPHILS % 82.5 % (38.7-80.0); PLATELET COUNT 347 x10e3/uL (140-360); RED CELL DISTRIBUTION WIDTH 12.7 % (11.7-14.4)
[2022-01-21 18:46] LABS: ALBUMIN 2.9 g/dL (3.5-5.0); ALBUMIN/GLOBULIN RATIO 0.8 (0.8-2.0); ANION GAP 14.6 mmol/L (8-16); CALCIUM 7.9 mg/dL (8.4-10.2); CREATININE, SERUM 0.63 mg/dL (0.72-1.25); POTASSIUM 3.6 mmol/L (3.5-5.1)
[2022-01-21 19:30] LABS: CLARITY,URINE CLOUDY (CLEAR); COLOR,URINE BROWN (YELLOW); LEUKOCYTE ESTERASE ,URINE SMALL (NEGATIVE); NITRITE,URINE NEGATIVE (NEGATIVE); PROTEIN,URINE DIPSTICK >=300 (NEGATIVE)
[2022-01-21 19:31] LABS: KETONES,URINE TRACE (NEGATIVE); URINE UROBILINOGEN 0.2 mg/dL (0.2 - 1)
[2022-01-21 19:47] LABS: AMORPHOUS SEDIMENT,URINE MODERATE (FEW); BACTERIA,URINE MODERATE /HPF
[2022-01-21 19:50] LABS: CREATINE KINASE MB 1.7 ng/mL (0-5.0)
[2022-01-21] MEDS ORDERED: DEXTROSE 50% SYRINGE 50 ML IV PRN (20:00)
[2022-01-21 20:10] LABS: PROTHROMBIN TIME 14.1 seconds (11.9-14.5)
[2022-01-21 20:11] LABS: PARTIAL THROMBOPLASTIN TIME 25.8 seconds (23.8-35.5)
[2022-01-21] MEDS ORDERED: INSULIN REGULAR, HUMAN 100 UNIT/1 ML SQ SCH (21:00)
[2022-01-21 22:45] VITALS: BP 85/45
[2022-01-21 23:00] VITALS: BP 77/46
[2022-01-21 23:15] VITALS: BP 82/47
[2022-01-21 23:48] VITALS: BP 76/38
[2022-01-21] MEDS: NOREPINEPHRINE 8 MG/D5W 250 ML 250 ML IV PRN (23:48)
[2022-01-22] VITALS (80 sets, daily range): BP systolic 64–198; BP diastolic 42–108
[2022-01-22] MEDS: SODIUM CHLORIDE 0.9% 1000ML 1,000 ML IV SCH ×2 (00:33→07:59)
[2022-01-22] MEDS: KETOROLAC TROMETHAMINE 30 MG/ML VIAL IV PRN (00:34)
[2022-01-22] MEDS: NOREPINEPHRINE 8 MG/D5W 250 ML 250 ML IV PRN ×2 (03:30→04:30)
[2022-01-22 05:01] LABS: BASOPHILS % 0.3 % (0.0-1.0); EOSINOPHILS % 0.4 % (0.0-6.0); HEMATOCRIT 36.4 % (38.2-49.6); HEMOGLOBIN 11.6 g/dL (14.0-18.0); LYMPHOCYTES # (AUTO) 2.1 (1.0-3.2); LYMPHOCYTES % 21.1 % (18.0-39.1); MEAN CORPUSCULAR HEMOGLOBIN 30.7 pg (28-32); MEAN CORPUSCULAR HGB CONC 31.9 g/dL (31-35); MEAN CORPUSCULAR VOLUME 96.3 fL (81-99); MONOCYTES # (AUTO) 0.9 (0.2-0.8); MONOCYTES % 8.9 % (4.4-11.3); NEUTROPHILS % 68.9 % (38.7-80.0); PLATELET COUNT 359 x10e3/uL (140-360); RED BLOOD COUNT 3.78 x10e6/uL (4.3-5.7)
[2022-01-22 05:24] LABS: ALBUMIN 2.9 g/dL (3.5-5.0); ALBUMIN/GLOBULIN RATIO 0.9 (0.8-2.0); ANION GAP 11.3 mmol/L (8-16); CALCIUM 7.8 mg/dL (8.4-10.2); CREATININE, SERUM 0.59 mg/dL (0.72-1.25); POTASSIUM 3.3 mmol/L (3.5-5.1)
[2022-01-22] MEDS ORDERED: ACETAMINOPHEN 325 MG TAB PO PRN (08:45)
[2022-01-22] MEDS: METOPROLOL TARTRATE 25 MG TAB PO SCH ×2 (09:00→17:00)
[2022-01-22] MEDS: RISPERIDONE 0.5 MG TAB PO SCH (09:00)
[2022-01-22] MEDS: AMLODIPINE BESYLATE 5 MG TAB PO SCH ×2 (09:00→17:00)
[2022-01-22] MEDS ORDERED: LACTATED RINGER'S 1,000 ML INJ ONE (09:00)
[2022-01-22] MEDS: APIXABAN 5 MG TABLET PO SCH ×2 (09:00→17:00)
[2022-01-22] MEDS ORDERED: POTASSIUM CHLORIDE 20 MEQ TAB CR PO ONE (09:00)
[2022-01-22] MEDS: MEROPENEM 1 GM in SODIUM CHLORIDE 0.9% 100 ML IV SCH ×2 (10:00→17:35)
[2022-01-22] MEDS: Vancomycin IV 1 GM in SODIUM CHLORIDE 0.9% 250ML 250 ML IV SCH ×2 (11:39→21:20)
[2022-01-22] MEDS: Morphine 4mg Syringe 4 MG/ML INJ IV PRN ×3 (13:28→21:49)
[2022-01-22 17:47] LABS: ANION GAP 9.1 mmol/L (8-16); CALCIUM 7.1 mg/dL (8.4-10.2); CREATININE, SERUM 0.63 mg/dL (0.72-1.25); POTASSIUM 4.1 mmol/L (3.5-5.1)
[2022-01-22] MEDS: TRAZODONE HCL 50 MG TAB PO SCH (21:20)
[2022-01-23] VITALS (56 sets, daily range): BP systolic 87–186; BP diastolic 53–150
[2022-01-23] MEDS: Morphine 4mg Syringe 4 MG/ML INJ IV PRN ×5 (02:07→21:13)
[2022-01-23] MEDS: MEROPENEM 1 GM in SODIUM CHLORIDE 0.9% 100 ML IV SCH ×3 (02:17→18:00)
[2022-01-23 05:30] LABS: BASOPHILS % 0.3 % (0.0-1.0); EOSINOPHILS # (AUTO) 0.1 (0.0-0.4); EOSINOPHILS % 1.8 % (0.0-6.0); HEMATOCRIT 34.2 % (38.2-49.6); HEMOGLOBIN 10.8 g/dL (14.0-18.0); LYMPHOCYTES # (AUTO) 3.4 (1.0-3.2); LYMPHOCYTES % 44.9 % (18.0-39.1); MEAN CORPUSCULAR HEMOGLOBIN 30.7 pg (28-32); MEAN CORPUSCULAR HGB CONC 31.6 g/dL (31-35); MEAN CORPUSCULAR VOLUME 97.2 fL (81-99); MONOCYTES # (AUTO) 0.5 (0.2-0.8); MONOCYTES % 7.1 % (4.4-11.3); NEUTROPHILS # (AUTO) 3.5 (2.1-6.9); NEUTROPHILS % 45.6 % (38.7-80.0); PLATELET COUNT 310 x10e3/uL (140-360); RED BLOOD COUNT 3.52 x10e6/uL (4.3-5.7); RED CELL DISTRIBUTION WIDTH 13.2 % (11.7-14.4)
[2022-01-23 06:15] LABS: ALBUMIN 3.1 g/dL (3.5-5.0); ALBUMIN/GLOBULIN RATIO 0.9 (0.8-2.0); ANION GAP 10.2 mmol/L (8-16); CALCIUM 8.3 mg/dL (8.4-10.2); CREATININE, SERUM 0.52 mg/dL (0.72-1.25); POTASSIUM 4.2 mmol/L (3.5-5.1)
[2022-01-23] MEDS: KETOROLAC TROMETHAMINE 30 MG/ML VIAL IV PRN (06:15)
[2022-01-23] MEDS: APIXABAN 5 MG TABLET PO SCH ×2 (08:50→18:00)
[2022-01-23] MEDS: AMLODIPINE BESYLATE 5 MG TAB PO SCH (08:50)
[2022-01-23] MEDS: Vancomycin IV 1 GM in SODIUM CHLORIDE 0.9% 250ML 250 ML IV SCH ×2 (08:50→20:15)
[2022-01-23] MEDS: METOPROLOL TARTRATE 25 MG TAB PO SCH ×2 (08:50→18:00)
[2022-01-23] MEDS: RISPERIDONE 0.5 MG TAB PO SCH (08:51)
[2022-01-23] MEDS ORDERED: SODIUM CHLORIDE 0.9% 1000ML 1,000 ML ONE (19:05)
[2022-01-23] MEDS: TRAZODONE HCL 50 MG TAB PO SCH (20:15)
[2022-01-24] VITALS (8 sets, daily range): BP systolic 118–160; BP diastolic 89–124
[2022-01-24] MEDS: Morphine 4mg Syringe 4 MG/ML INJ IV PRN ×6 (01:16→21:33)
[2022-01-24] MEDS: MEROPENEM 1 GM in SODIUM CHLORIDE 0.9% 100 ML IV SCH ×3 (01:16→17:26)
[2022-01-24] MEDS: Vancomycin IV 1 GM in SODIUM CHLORIDE 0.9% 250ML 250 ML IV SCH ×2 (09:41→21:27)
[2022-01-24] MEDS: APIXABAN 5 MG TABLET PO SCH ×2 (09:43→17:25)
[2022-01-24] MEDS: METOPROLOL TARTRATE 25 MG TAB PO SCH ×2 (09:43→17:25)
[2022-01-24] MEDS: RISPERIDONE 0.5 MG TAB PO SCH (09:43)
[2022-01-24] MEDS: AMLODIPINE BESYLATE 5 MG TAB PO SCH (09:43)
[2022-01-24 10:37] LABS: BASOPHILS % 0.2 % (0.0-1.0); EOSINOPHILS # (AUTO) 0.2 (0.0-0.4); EOSINOPHILS % 3.9 % (0.0-6.0); HEMATOCRIT 34.1 % (38.2-49.6); LYMPHOCYTES % 35.9 % (18.0-39.1); MEAN CORPUSCULAR HEMOGLOBIN 30.8 pg (28-32); MEAN CORPUSCULAR HGB CONC 32.3 g/dL (31-35); MEAN CORPUSCULAR VOLUME 95.5 fL (81-99); MONOCYTES # (AUTO) 0.5 (0.2-0.8); NEUTROPHILS # (AUTO) 2.9 (2.1-6.9); NEUTROPHILS % 51.8 % (38.7-80.0); PLATELET COUNT 306 x10e3/uL (140-360); RED BLOOD COUNT 3.57 x10e6/uL (4.3-5.7); RED CELL DISTRIBUTION WIDTH 12.9 % (11.7-14.4)
[2022-01-24 10:52] LABS: ALBUMIN 2.9 g/dL (3.5-5.0); ALBUMIN/GLOBULIN RATIO 0.8 (0.8-2.0); ANION GAP 12.2 mmol/L (8-16); CALCIUM 8.4 mg/dL (8.4-10.2); CREATININE, SERUM 0.48 mg/dL (0.72-1.25); POTASSIUM 4.2 mmol/L (3.5-5.1)
[2022-01-24] MEDS: TRAZODONE HCL 50 MG TAB PO SCH (21:27)
[2022-01-25] VITALS (9 sets, daily range): BP systolic 102–142; BP diastolic 76–102
[2022-01-25] MEDS: Morphine 4mg Syringe 4 MG/ML INJ IV PRN ×6 (01:30→22:05)
[2022-01-25] MEDS: MEROPENEM 1 GM in SODIUM CHLORIDE 0.9% 100 ML IV SCH ×3 (01:34→17:13)
[2022-01-25 05:40] LABS: BASOPHILS % 0.4 % (0.0-1.0); EOSINOPHILS # (AUTO) 0.2 (0.0-0.4); EOSINOPHILS % 4.6 % (0.0-6.0); HEMATOCRIT 32.8 % (38.2-49.6); HEMOGLOBIN 10.6 g/dL (14.0-18.0); LYMPHOCYTES # (AUTO) 1.8 (1.0-3.2); LYMPHOCYTES % 36.5 % (18.0-39.1); MEAN CORPUSCULAR HEMOGLOBIN 30.7 pg (28-32); MEAN CORPUSCULAR HGB CONC 32.3 g/dL (31-35); MEAN CORPUSCULAR VOLUME 95.1 fL (81-99); MONOCYTES # (AUTO) 0.5 (0.2-0.8); MONOCYTES % 9.1 % (4.4-11.3); NEUTROPHILS # (AUTO) 2.5 (2.1-6.9); NEUTROPHILS % 49.2 % (38.7-80.0); PLATELET COUNT 281 x10e3/uL (140-360); RED BLOOD COUNT 3.45 x10e6/uL (4.3-5.7); RED CELL DISTRIBUTION WIDTH 12.8 % (11.7-14.4)
[2022-01-25 06:02] LABS: ALBUMIN 2.9 g/dL (3.5-5.0); ALBUMIN/GLOBULIN RATIO 0.8 (0.8-2.0); ANION GAP 11.3 mmol/L (8-16); CALCIUM 8.4 mg/dL (8.4-10.2); CREATININE, SERUM 0.51 mg/dL (0.72-1.25); MAGNESIUM 1.8 MG/DL (1.3-2.1); POTASSIUM 4.3 mmol/L (3.5-5.1)
[2022-01-25] MEDS: Vancomycin IV 1 GM in SODIUM CHLORIDE 0.9% 250ML 250 ML IV SCH ×2 (08:09→21:45)
[2022-01-25] MEDS: APIXABAN 5 MG TABLET PO SCH ×2 (08:09→17:11)
[2022-01-25] MEDS: RISPERIDONE 0.5 MG TAB PO SCH (08:10)
[2022-01-25] MEDS: AMLODIPINE BESYLATE 5 MG TAB PO SCH (08:10)
[2022-01-25] MEDS: METOPROLOL TARTRATE 25 MG TAB PO SCH ×2 (08:10→17:13)
[2022-01-25] MEDS: TRAZODONE HCL 50 MG TAB PO SCH (21:45)
[2022-01-26] VITALS: BP 119/86
[2022-01-26] MEDS: Morphine 4mg Syringe 4 MG/ML INJ IV PRN ×5 (02:00→23:20)
[2022-01-26] MEDS: MEROPENEM 1 GM in SODIUM CHLORIDE 0.9% 100 ML IV SCH ×3 (02:16→17:22)
[2022-01-26 04:00] VITALS: BP 161/110
[2022-01-26 06:10] LABS: BASOPHILS % 0.5 % (0.0-1.0); EOSINOPHILS # (AUTO) 0.2 (0.0-0.4); HEMATOCRIT 33.4 % (38.2-49.6); HEMOGLOBIN 10.7 g/dL (14.0-18.0); LYMPHOCYTES # (AUTO) 2.1 (1.0-3.2); MEAN CORPUSCULAR HEMOGLOBIN 30.4 pg (28-32); MEAN CORPUSCULAR VOLUME 94.9 fL (81-99); MONOCYTES # (AUTO) 0.6 (0.2-0.8); MONOCYTES % 9.6 % (4.4-11.3); NEUTROPHILS # (AUTO) 2.8 (2.1-6.9); NEUTROPHILS % 49.6 % (38.7-80.0); PLATELET COUNT 318 x10e3/uL (140-360); RED BLOOD COUNT 3.52 x10e6/uL (4.3-5.7); RED CELL DISTRIBUTION WIDTH 12.6 % (11.7-14.4)
[2022-01-26 06:29] LABS: ANION GAP 11.4 mmol/L (8-16); CALCIUM 8.9 mg/dL (8.4-10.2); CREATININE, SERUM 0.5 mg/dL (0.72-1.25); POTASSIUM 4.4 mmol/L (3.5-5.1)
[2022-01-26 08:00] VITALS: BP 161/110
[2022-01-26] MEDS: APIXABAN 5 MG TABLET PO SCH ×2 (09:00→17:00)
[2022-01-26] MEDS: AMLODIPINE BESYLATE 5 MG TAB PO SCH (09:00)
[2022-01-26] MEDS: RISPERIDONE 0.5 MG TAB PO SCH (09:00)
[2022-01-26] MEDS: METOPROLOL TARTRATE 25 MG TAB PO SCH ×2 (09:00→17:00)
[2022-01-26] MEDS: Vancomycin IV 1 GM in SODIUM CHLORIDE 0.9% 250ML 250 ML IV SCH ×2 (09:45→20:45)
[2022-01-26] MEDS: HYDRALAZINE HCL 20 MG/ML VIAL IV PRN (09:55)
[2022-01-26 20:07] VITALS: BP 123/95
[2022-01-26] MEDS: TRAZODONE HCL 50 MG TAB PO SCH (20:45)
[2022-01-26 23:51] VITALS: BP 123/95
[2022-01-27] VITALS (7 sets, daily range): BP systolic 86–164; BP diastolic 54–102
[2022-01-27] MEDS: MEROPENEM 1 GM in SODIUM CHLORIDE 0.9% 100 ML IV SCH ×3 (02:00→17:42)
[2022-01-27] MEDS: RISPERIDONE 0.5 MG TAB PO SCH (09:00)
[2022-01-27] MEDS: APIXABAN 5 MG TABLET PO SCH ×2 (09:00→17:42)
[2022-01-27] MEDS: AMLODIPINE BESYLATE 5 MG TAB PO SCH (09:00)
[2022-01-27] MEDS: METOPROLOL TARTRATE 25 MG TAB PO SCH ×2 (09:00→17:42)
[2022-01-27] MEDS: Morphine 4mg Syringe 4 MG/ML INJ IV PRN ×4 (09:50→22:05)
[2022-01-27] MEDS: ONDANSETRON HCL INJ 2MG/ML 2ML 2 MG/ML VIAL IV PRN ×3 (09:50→18:06)
[2022-01-27] MEDS: HYDRALAZINE HCL 20 MG/ML VIAL IV PRN (16:44)
[2022-01-27] MEDS: TRAZODONE HCL 50 MG TAB PO SCH (21:00)
[2022-01-28] VITALS: BP 85/60
[2022-01-28] MEDS: MEROPENEM 1 GM in SODIUM CHLORIDE 0.9% 100 ML IV SCH ×2 (02:00→08:54)
[2022-01-28 04:00] VITALS: BP 99/66
[2022-01-28 08:06] VITALS: BP 89/58
[2022-01-28 08:31] VITALS: BP 89/58
[2022-01-28] MEDS: APIXABAN 5 MG TABLET PO SCH (08:54)
[2022-01-28] MEDS: RISPERIDONE 0.5 MG TAB PO SCH (08:54)
[2022-01-28 11:27] VITALS: BP 98/60
[2022-01-28] MEDS ORDERED: ONDANSETRON HCL 4 MG ORAL DISINTEGRATING TAB PO PRN (12:30)
== END 2022-01-28 15:20 | disposition home health service (06) | DRG 698 ==
LOC: ER 16:52 → ERHOLD 20:01 → ICU 22:33 → MED/SURG2 01-23 16:40
PROVIDERS: ADMIT Internal Medicine; ATTEND Internal Medicine
PROC: 3E043XZ Introduction of Vasopressor into Central Vein, Percutaneous Approach (ICD-10-PCS; principal; 2022-01-21)
PROC: 3E04329 Introduction of Other Anti-infective into Central Vein, Percutaneous Approach (ICD-10-PCS; 2022-01-21)
DX: T83.510A Infection and inflammatory reaction due to cystostomy catheter, initial encounter (principal); A41.9 Sepsis, unspecified organism; R65.21 Severe sepsis with septic shock; G82.50 Quadriplegia, unspecified; N39.0 Urinary tract infection, site not specified; J96.11 Chronic respiratory failure with hypoxia; E44.0 Moderate protein-calorie malnutrition; Z16.12 Extended spectrum beta lactamase (ESBL) resistance; Z68.1 Body mass index [BMI] 19.9 or less, adult; L89.150 Pressure ulcer of sacral region, unstageable; Z93.0 Tracheostomy status; I10 Essential (primary) hypertension; F20.9 Schizophrenia, unspecified; E87.6 Hypokalemia; G89.4 Chronic pain syndrome; D64.9 Anemia, unspecified; B96.4 Proteus (mirabilis) (morganii) as the cause of diseases classified elsewhere; Z86.711 Personal history of pulmonary embolism; Z74.01 Bed confinement status; Z93.3 Colostomy status; Z20.822 Contact with and (suspected) exposure to COVID-19; Z88.8 Allergy status to other drugs, medicaments and biological substances; R33.9 Retention of urine, unspecified; N31.9 Neuromuscular dysfunction of bladder, unspecified; M62.422 Contracture of muscle, left upper arm; M62.421 Contracture of muscle, right upper arm
CPT/HCPCS: 36415; 71045; 80048; 80053; 80202; 81001; 82550; 82553; 83605; 83735; 84484; 85025; 85610; 85730; 87040; 87071; 87086; 87186; 87205; 93005; 94799; 97139; 99251; 99285; J0360; J0696; J1885; J2185; J2270; J2405; J3370; J7030; J7050; J7121; L8501; U0002

== ENCOUNTER 2022-02-25 16:18 | Inpatient (IN) | payer MEDICARE, OTHER ==
[~2022-02-25] VITALS: Ht 167.6 cm; Wt 50.1 kg
[2022-02-25] MEDS ORDERED: MEROPENEM 1 GM in SODIUM CHLORIDE 0.9% 100 ML IV ONE (16:30)
[2022-02-25] MEDS ORDERED: SODIUM CHLORIDE FLUSH 10 ML SYR INJ PRN (16:30)
[2022-02-25] MEDS ORDERED: SODIUM CHLORIDE 0.9% 1000ML 1,000 ML IV STA (17:00)
[2022-02-25 17:01] LABS: BASOPHILS % 0.5 % (0.0-1.0); EOSINOPHILS # (AUTO) 0.3 (0.0-0.4); EOSINOPHILS % 3.8 % (0.0-6.0); HEMATOCRIT 42.4 % (38.2-49.6); HEMOGLOBIN 13.6 g/dL (14.0-18.0); LYMPHOCYTES # (AUTO) 2.6 (1.0-3.2); LYMPHOCYTES % 38.3 % (18.0-39.1); MEAN CORPUSCULAR HEMOGLOBIN 30.3 pg (28-32); MEAN CORPUSCULAR HGB CONC 32.1 g/dL (31-35); MEAN CORPUSCULAR VOLUME 94.4 fL (81-99); MONOCYTES # (AUTO) 0.3 (0.2-0.8); MONOCYTES % 5.1 % (4.4-11.3); NEUTROPHILS # (AUTO) 3.5 (2.1-6.9); PLATELET COUNT 366 x10e3/uL (140-360); RED BLOOD COUNT 4.49 x10e6/uL (4.3-5.7); RED CELL DISTRIBUTION WIDTH 13.2 % (11.7-14.4)
[2022-02-25 17:18] LABS: CLARITY,URINE CLOUDY (CLEAR); COLOR,URINE YELLOW (YELLOW); KETONES,URINE NEGATIVE (NEGATIVE); LEUKOCYTE ESTERASE ,URINE 2+ (NEGATIVE); NITRITE,URINE POSITIVE (NEGATIVE); PROTEIN,URINE DIPSTICK >=300 (NEGATIVE); URINE UROBILINOGEN 0.2 mg/dL (0.2 - 1)
[2022-02-25 17:21] LABS: ALBUMIN 3.5 g/dL (3.5-5.0); ALBUMIN/GLOBULIN RATIO 0.8 (0.8-2.0); CALCIUM 9.5 mg/dL (8.4-10.2); CREATININE, SERUM 0.61 mg/dL (0.72-1.25)
[2022-02-25 17:39] LABS: BACTERIA,URINE MANY /HPF; EPITHELIAL CELLS,URINE FEW /LPF; WBC,URINE (MAN) 21-50 /HPF (0-5)
[2022-02-25 17:40] LABS: MUCUS,URINE MANY (RARE)
[2022-02-25] MEDS: Morphine 4mg INJECTION 4 MG/ML INJ IV PRN (19:08)
[2022-02-25] MEDS: SODIUM CHLORIDE 0.9% 1000ML 1,000 ML IV SCH ×2 (19:08→21:43)
[2022-02-25] MEDS: ONDANSETRON HCL INJ 2MG/ML 2ML 2 MG/ML VIAL IV PRN (19:08)
[2022-02-25] MEDS ORDERED: HYDRALAZINE HCL 20 MG/ML VIAL IV ONE (20:15)
[2022-02-25] MEDS ORDERED: HYDRALAZINE HCL 20 MG/ML VIAL ONE (20:24)
[2022-02-25 20:28] LABS: CREATINE KINASE MB 1.9 ng/mL (0-5.0)
[2022-02-25 20:41] VITALS: BP 135/96
[2022-02-25 21:34] VITALS: BP 135/96
[2022-02-25] MEDS ORDERED: HYDRALAZINE HCL 20 MG/ML VIAL IV PRN (23:30)
[2022-02-25] MEDS ORDERED: ACETAMINOPHEN 325 MG TAB PO PRN (23:30)
[2022-02-26 00:25] VITALS: BP 117/62
[2022-02-26] MEDS ORDERED: TRAZODONE HCL 50 MG TAB PO ONE (00:30)
[2022-02-26] MEDS: SODIUM CHLORIDE 0.9% 1000ML 1,000 ML IV SCH ×4 (02:00→22:44)
[2022-02-26 04:00] VITALS: BP 95/58
[2022-02-26] MEDS: Morphine 4mg INJECTION 4 MG/ML INJ IV PRN ×5 (04:00→22:47)
[2022-02-26] MEDS ORDERED: MEROPENEM 1 GM in SODIUM CHLORIDE 0.9% 100 ML IV SCH ×3 (04:00→06:00)
[2022-02-26] MEDS: ONDANSETRON HCL INJ 2MG/ML 2ML 2 MG/ML VIAL IV PRN ×5 (04:00→22:49)
[2022-02-26 04:23] LABS: BASOPHILS % 0.4 % (0.0-1.0); EOSINOPHILS # (AUTO) 0.2 (0.0-0.4); EOSINOPHILS % 3.7 % (0.0-6.0); HEMATOCRIT 33.4 % (38.2-49.6); HEMOGLOBIN 10.8 g/dL (14.0-18.0); LYMPHOCYTES % 38.8 % (18.0-39.1); MEAN CORPUSCULAR HEMOGLOBIN 30.8 pg (28-32); MEAN CORPUSCULAR HGB CONC 32.3 g/dL (31-35); MEAN CORPUSCULAR VOLUME 95.2 fL (81-99); MONOCYTES # (AUTO) 0.4 (0.2-0.8); MONOCYTES % 6.8 % (4.4-11.3); NEUTROPHILS # (AUTO) 2.6 (2.1-6.9); NEUTROPHILS % 50.1 % (38.7-80.0); PLATELET COUNT 297 x10e3/uL (140-360); RED BLOOD COUNT 3.51 x10e6/uL (4.3-5.7); RED CELL DISTRIBUTION WIDTH 13.2 % (11.7-14.4)
[2022-02-26 04:47] LABS: CREATINE KINASE MB 1.9 ng/mL (0-5.0)
[2022-02-26 05:04] LABS: ALBUMIN 2.8 g/dL (3.5-5.0); ALBUMIN/GLOBULIN RATIO 0.8 (0.8-2.0); ALKALINE PHOSPHATASE 93 IU/L (40-150); ANION GAP 8.5 mmol/L (8-16); BLOOD UREA NITROGEN 14 mg/dL (7-26); BUN/CREATININE RATIO 29 (6-25); CARBON DIOXIDE 24 mmol/L (22-29); CHLORIDE 115 mmol/L (98-107); CREATININE, SERUM 0.49 mg/dL (0.72-1.25); GLUCOSE 87 mg/dL (74-118); POTASSIUM 3.5 mmol/L (3.5-5.1); SODIUM 144 mmol/L (136-145)
[2022-02-26 05:05] LABS: ALANINE AMINOTRANSFERASE < 6 IU/L (0-55)
[2022-02-26 08:26] VITALS: BP 105/70
[2022-02-26] MEDS: APIXABAN 5 MG TABLET PO SCH ×2 (08:55→16:43)
[2022-02-26] MEDS: DOCUSATE SODIUM 100 MG CAP PO SCH (08:55)
[2022-02-26] MEDS: RISPERIDONE 0.5 MG TAB PO SCH (08:57)
[2022-02-26] MEDS: METOPROLOL TARTRATE 25 MG TAB PO SCH ×2 (08:58→16:43)
[2022-02-26] MEDS: AMLODIPINE BESYLATE 5 MG TAB PO SCH ×2 (08:59→16:43)
[2022-02-26] MEDS: SENNOSIDES 8.6 MG TAB PO SCH (08:59)
[2022-02-26 12:00] VITALS: BP 133/88
[2022-02-26] MEDS: MEROPENEM 1 GM in SODIUM CHLORIDE 0.9% 100 ML IV SCH ×2 (13:31→22:00)
[2022-02-26 15:54] VITALS: BP 122/73
[2022-02-26] MEDS: TRAZODONE HCL 50 MG TAB PO SCH (20:51)
[2022-02-26 21:00] VITALS: BP 124/82
[2022-02-27] VITALS (9 sets, daily range): BP systolic 99–148; BP diastolic 64–92
[2022-02-27] MEDS: MEROPENEM 1 GM in SODIUM CHLORIDE 0.9% 100 ML IV SCH ×3 (06:01→22:17)
[2022-02-27] MEDS: Morphine 4mg INJECTION 4 MG/ML INJ IV PRN ×5 (07:00→23:10)
[2022-02-27] MEDS: ONDANSETRON HCL INJ 2MG/ML 2ML 2 MG/ML VIAL IV PRN ×4 (07:00→19:07)
[2022-02-27] MEDS: SODIUM CHLORIDE 0.9% 1000ML 1,000 ML IV SCH ×2 (07:30→18:41)
[2022-02-27 07:51] LABS: ALBUMIN 2.9 g/dL (3.5-5.0); ALBUMIN/GLOBULIN RATIO 0.9 (0.8-2.0); ANION GAP 10.8 mmol/L (8-16); CALCIUM 8.2 mg/dL (8.4-10.2); CREATININE, SERUM 0.48 mg/dL (0.72-1.25); MAGNESIUM 1.6 MG/DL (1.3-2.1); POTASSIUM 3.8 mmol/L (3.5-5.1)
[2022-02-27 08:12] LABS: FERRITIN 64.92 ng/mL (21.81-274.66)
[2022-02-27 08:13] LABS: BASOPHILS % 0.5 % (0.0-1.0); EOSINOPHILS # (AUTO) 0.2 (0.0-0.4); EOSINOPHILS % 4.2 % (0.0-6.0); HEMATOCRIT 34.5 % (38.2-49.6); HEMOGLOBIN 10.8 g/dL (14.0-18.0); LYMPHOCYTES # (AUTO) 2.4 (1.0-3.2); LYMPHOCYTES % 41.4 % (18.0-39.1); MEAN CORPUSCULAR HEMOGLOBIN 30.1 pg (28-32); MEAN CORPUSCULAR HGB CONC 31.3 g/dL (31-35); MEAN CORPUSCULAR VOLUME 96.1 fL (81-99); MONOCYTES # (AUTO) 0.3 (0.2-0.8); MONOCYTES % 5.1 % (4.4-11.3); NEUTROPHILS # (AUTO) 2.8 (2.1-6.9); NEUTROPHILS % 48.6 % (38.7-80.0); PLATELET COUNT 319 x10e3/uL (140-360); RED BLOOD COUNT 3.59 x10e6/uL (4.3-5.7); RED CELL DISTRIBUTION WIDTH 13.2 % (11.7-14.4)
[2022-02-27 08:32] LABS: RETICULOCYTE % 1.8 % (0.8-2.2)
[2022-02-27] MEDS: AMLODIPINE BESYLATE 5 MG TAB PO SCH ×2 (09:00→16:33)
[2022-02-27] MEDS: RISPERIDONE 0.5 MG TAB PO SCH (09:00)
[2022-02-27] MEDS: DOCUSATE SODIUM 100 MG CAP PO SCH (09:35)
[2022-02-27] MEDS: METOPROLOL TARTRATE 25 MG TAB PO SCH ×2 (09:35→16:33)
[2022-02-27] MEDS: SENNOSIDES 8.6 MG TAB PO SCH (09:35)
[2022-02-27] MEDS: APIXABAN 5 MG TABLET PO SCH ×2 (09:35→17:00)
[2022-02-27 11:23] LABS: CREATINE KINASE 117 IU/L (30-200)
[2022-02-27] MEDS: TRAZODONE HCL 50 MG TAB PO SCH (20:58)
[2022-02-28] MEDS: SODIUM CHLORIDE 0.9% 1000ML 1,000 ML IV SCH ×3 (01:33→18:14)
[2022-02-28] MEDS: ONDANSETRON HCL INJ 2MG/ML 2ML 2 MG/ML VIAL IV PRN (04:35)
[2022-02-28] MEDS: Morphine 4mg INJECTION 4 MG/ML INJ IV PRN ×5 (04:35→20:38)
[2022-02-28] MEDS: MEROPENEM 1 GM in SODIUM CHLORIDE 0.9% 100 ML IV SCH ×3 (05:43→20:37)
[2022-02-28 06:08] VITALS: BP 142/101
[2022-02-28 08:33] VITALS: BP 112/76
[2022-02-28 08:36] LABS: BASOPHILS % 0.6 % (0.0-1.0); EOSINOPHILS # (AUTO) 0.3 (0.0-0.4); EOSINOPHILS % 4.8 % (0.0-6.0); HEMOGLOBIN 10.8 g/dL (14.0-18.0); LYMPHOCYTES # (AUTO) 1.6 (1.0-3.2); MEAN CORPUSCULAR HEMOGLOBIN 30.1 pg (28-32); MEAN CORPUSCULAR HGB CONC 31.8 g/dL (31-35); MEAN CORPUSCULAR VOLUME 94.7 fL (81-99); MONOCYTES # (AUTO) 0.4 (0.2-0.8); MONOCYTES % 6.7 % (4.4-11.3); NEUTROPHILS % 57.7 % (38.7-80.0); PLATELET COUNT 283 x10e3/uL (140-360); RED BLOOD COUNT 3.59 x10e6/uL (4.3-5.7)
[2022-02-28] MEDS: APIXABAN 5 MG TABLET PO SCH ×2 (08:38→18:13)
[2022-02-28] MEDS: DOCUSATE SODIUM 100 MG CAP PO SCH (08:38)
[2022-02-28] MEDS: METOPROLOL TARTRATE 25 MG TAB PO SCH ×2 (08:39→18:14)
[2022-02-28] MEDS: SENNOSIDES 8.6 MG TAB PO SCH (08:39)
[2022-02-28] MEDS: AMLODIPINE BESYLATE 5 MG TAB PO SCH ×2 (08:39→18:13)
[2022-02-28] MEDS: RISPERIDONE 0.5 MG TAB PO SCH ×2 (08:39→08:41)
[2022-02-28 08:54] VITALS: BP 112/76
[2022-02-28 09:08] LABS: ANION GAP 9.7 mmol/L (8-16); CREATININE, SERUM 0.5 mg/dL (0.72-1.25); MAGNESIUM 1.8 MG/DL (1.3-2.1); POTASSIUM 3.7 mmol/L (3.5-5.1)
[2022-02-28 12:13] VITALS: BP 113/74
[2022-02-28 16:28] VITALS: BP 114/88
[2022-02-28 17:51] LABS: CLARITY,URINE HAZY (CLEAR); COLOR,URINE YELLOW (YELLOW)
[2022-02-28 17:52] LABS: KETONES,URINE NEGATIVE (NEGATIVE); LEUKOCYTE ESTERASE ,URINE TRACE (NEGATIVE); NITRITE,URINE NEGATIVE (NEGATIVE); PROTEIN,URINE DIPSTICK NEGATIVE (NEGATIVE); URINE UROBILINOGEN 0.2 mg/dL (0.2 - 1)
[2022-02-28 17:53] LABS: BACTERIA,URINE FEW /HPF; EPITHELIAL CELLS,URINE FEW /LPF; RBC,URINE 21-50 /HPF (0-5)
[2022-02-28 20:00] VITALS: BP 114/88
[2022-02-28] MEDS: TRAZODONE HCL 50 MG TAB PO SCH (20:37)
[2022-03-01] MEDS: Morphine 4mg INJECTION 4 MG/ML INJ IV PRN ×5 (00:35→20:45)
[2022-03-01] MEDS: ONDANSETRON HCL INJ 2MG/ML 2ML 2 MG/ML VIAL IV PRN (00:36)
[2022-03-01] MEDS: SODIUM CHLORIDE 0.9% 1000ML 1,000 ML IV SCH ×3 (02:25→18:25)
[2022-03-01 04:54] VITALS: BP 117/92
[2022-03-01] MEDS: MEROPENEM 1 GM in SODIUM CHLORIDE 0.9% 100 ML IV SCH ×3 (05:54→22:00)
[2022-03-01 08:09] VITALS: BP 125/90
[2022-03-01 08:19] VITALS: BP 125/90
[2022-03-01] MEDS: DOCUSATE SODIUM 100 MG CAP PO SCH (08:46)
[2022-03-01] MEDS: APIXABAN 5 MG TABLET PO SCH ×2 (08:46→16:56)
[2022-03-01] MEDS: METOPROLOL TARTRATE 25 MG TAB PO SCH ×2 (08:47→16:56)
[2022-03-01] MEDS: SENNOSIDES 8.6 MG TAB PO SCH (08:47)
[2022-03-01] MEDS: AMLODIPINE BESYLATE 5 MG TAB PO SCH ×2 (08:47→16:56)
[2022-03-01] MEDS: RISPERIDONE 0.5 MG TAB PO SCH (08:47)
[2022-03-01 12:10] VITALS: BP 113/80
[2022-03-01 16:27] VITALS: BP 123/82
[2022-03-01 20:36] VITALS: BP_SYST 123; BP_SYST 138; BP_DIAS 101; BP_DIAS 82
[2022-03-01] MEDS: TRAZODONE HCL 50 MG TAB PO SCH (20:48)
[2022-03-02] VITALS (7 sets, daily range): BP systolic 107–136; BP diastolic 84–100
[2022-03-02] MEDS: Morphine 4mg INJECTION 4 MG/ML INJ IV PRN ×5 (01:02→22:21)
[2022-03-02] MEDS: SODIUM CHLORIDE 0.9% 1000ML 1,000 ML IV SCH (02:20)
[2022-03-02] MEDS: MEROPENEM 1 GM in SODIUM CHLORIDE 0.9% 100 ML IV SCH ×3 (06:50→22:21)
[2022-03-02 08:04] LABS: BASOPHILS % 0.2 % (0.0-1.0); EOSINOPHILS # (AUTO) 0.2 (0.0-0.4); EOSINOPHILS % 3.5 % (0.0-6.0); HEMATOCRIT 35.7 % (38.2-49.6); HEMOGLOBIN 11.7 g/dL (14.0-18.0); LYMPHOCYTES # (AUTO) 1.2 (1.0-3.2); LYMPHOCYTES % 21.9 % (18.0-39.1); MEAN CORPUSCULAR HEMOGLOBIN 30.5 pg (28-32); MEAN CORPUSCULAR HGB CONC 32.8 g/dL (31-35); MONOCYTES # (AUTO) 0.4 (0.2-0.8); NEUTROPHILS # (AUTO) 3.6 (2.1-6.9); NEUTROPHILS % 66.2 % (38.7-80.0); PLATELET COUNT 279 x10e3/uL (140-360); RED BLOOD COUNT 3.84 x10e6/uL (4.3-5.7); RED CELL DISTRIBUTION WIDTH 12.9 % (11.7-14.4)
[2022-03-02 08:22] LABS: ANION GAP 11.9 mmol/L (8-16); CREATININE, SERUM 0.46 mg/dL (0.72-1.25); POTASSIUM 3.9 mmol/L (3.5-5.1)
[2022-03-02 08:23] LABS: CALCIUM 8.3 mg/dL (8.4-10.2); MAGNESIUM 1.8 MG/DL (1.3-2.1)
[2022-03-02] MEDS: RISPERIDONE 0.5 MG TAB PO SCH (09:00)
[2022-03-02] MEDS: AMLODIPINE BESYLATE 5 MG TAB PO SCH ×2 (09:13→17:26)
[2022-03-02] MEDS: APIXABAN 5 MG TABLET PO SCH ×2 (09:13→17:25)
[2022-03-02] MEDS: DOCUSATE SODIUM 100 MG CAP PO SCH (09:13)
[2022-03-02] MEDS: SENNOSIDES 8.6 MG TAB PO SCH (09:13)
[2022-03-02] MEDS: METOPROLOL TARTRATE 25 MG TAB PO SCH ×2 (09:15→17:26)
[2022-03-02] MEDS: TRAZODONE HCL 50 MG TAB PO SCH (22:21)
[2022-03-03] VITALS (7 sets, daily range): BP systolic 92–151; BP diastolic 71–108
[2022-03-03] MEDS: Morphine 4mg INJECTION 4 MG/ML INJ IV PRN ×5 (02:09→22:01)
[2022-03-03] MEDS: MEROPENEM 1 GM in SODIUM CHLORIDE 0.9% 100 ML IV SCH ×3 (05:39→21:54)
[2022-03-03] MEDS: RISPERIDONE 0.5 MG TAB PO SCH (09:00)
[2022-03-03] MEDS: DOCUSATE SODIUM 100 MG CAP PO SCH (09:05)
[2022-03-03] MEDS: METOPROLOL TARTRATE 25 MG TAB PO SCH ×2 (09:06→16:14)
[2022-03-03] MEDS: APIXABAN 5 MG TABLET PO SCH ×2 (09:06→16:13)
[2022-03-03] MEDS: AMLODIPINE BESYLATE 5 MG TAB PO SCH ×2 (09:07→16:14)
[2022-03-03] MEDS: SENNOSIDES 8.6 MG TAB PO SCH (09:07)
[2022-03-03] MEDS: TRAZODONE HCL 50 MG TAB PO SCH (21:54)
[2022-03-04] VITALS (9 sets, daily range): BP systolic 119–142; BP diastolic 86–94
[2022-03-04] MEDS: Morphine 4mg INJECTION 4 MG/ML INJ IV PRN ×5 (02:31→22:03)
[2022-03-04] MEDS: MEROPENEM 1 GM in SODIUM CHLORIDE 0.9% 100 ML IV SCH ×3 (06:14→21:38)
[2022-03-04] MEDS: RISPERIDONE 0.5 MG TAB PO SCH (09:00)
[2022-03-04] MEDS: APIXABAN 5 MG TABLET PO SCH ×2 (09:05→16:53)
[2022-03-04] MEDS: METOPROLOL TARTRATE 25 MG TAB PO SCH ×2 (09:05→16:54)
[2022-03-04] MEDS: DOCUSATE SODIUM 100 MG CAP PO SCH (09:05)
[2022-03-04] MEDS: AMLODIPINE BESYLATE 5 MG TAB PO SCH ×2 (09:06→16:54)
[2022-03-04] MEDS: SENNOSIDES 8.6 MG TAB PO SCH (09:06)
[2022-03-04] MEDS: TRAZODONE HCL 50 MG TAB PO SCH (21:38)
[2022-03-05] VITALS: BP 122/87
[2022-03-05] MEDS: Morphine 4mg INJECTION 4 MG/ML INJ IV PRN ×5 (02:52→21:55)
[2022-03-05 04:00] VITALS: BP 93/64
[2022-03-05] MEDS: MEROPENEM 1 GM in SODIUM CHLORIDE 0.9% 100 ML IV SCH ×3 (05:37→21:48)
[2022-03-05 09:00] VITALS: BP 133/97
[2022-03-05] MEDS: RISPERIDONE 0.5 MG TAB PO SCH (09:00)
[2022-03-05] MEDS: SENNOSIDES 8.6 MG TAB PO SCH (09:32)
[2022-03-05] MEDS: AMLODIPINE BESYLATE 5 MG TAB PO SCH ×2 (09:32→17:11)
[2022-03-05] MEDS: DOCUSATE SODIUM 100 MG CAP PO SCH (09:32)
[2022-03-05] MEDS: APIXABAN 5 MG TABLET PO SCH ×2 (09:33→17:10)
[2022-03-05] MEDS: METOPROLOL TARTRATE 25 MG TAB PO SCH ×2 (09:33→17:11)
[2022-03-05 20:14] VITALS: BP 133/97
[2022-03-05] MEDS: TRAZODONE HCL 50 MG TAB PO SCH (21:12)
[2022-03-05 21:18] VITALS: BP 118/81
[2022-03-06 01:00] VITALS: BP 124/94
[2022-03-06] MEDS: Morphine 4mg INJECTION 4 MG/ML INJ IV PRN ×3 (05:27→13:36)
[2022-03-06] MEDS: MEROPENEM 1 GM in SODIUM CHLORIDE 0.9% 100 ML IV SCH ×2 (05:28→13:41)
[2022-03-06 05:43] VITALS: BP 107/79
[2022-03-06 08:04] VITALS: BP 102/77
[2022-03-06 08:20] VITALS: BP 102/77
[2022-03-06] MEDS: RISPERIDONE 0.5 MG TAB PO SCH (09:00)
[2022-03-06] MEDS: METOPROLOL TARTRATE 25 MG TAB PO SCH (09:00)
[2022-03-06] MEDS: AMLODIPINE BESYLATE 5 MG TAB PO SCH (09:00)
[2022-03-06] MEDS: APIXABAN 5 MG TABLET PO SCH (09:28)
[2022-03-06] MEDS: DOCUSATE SODIUM 100 MG CAP PO SCH (09:28)
[2022-03-06] MEDS: ONDANSETRON HCL 4 MG ORAL DISINTEGRATING TAB PO PRN ×2 (09:29→13:35)
[2022-03-06] MEDS: SENNOSIDES 8.6 MG TAB PO SCH (09:29)
[2022-03-06 12:30] VITALS: BP 101/70
[2022-03-06 16:00] VITALS: BP 119/75
== END 2022-03-06 16:43 | DRG 871 ==
LOC: ER 16:26 → ERHOLD 18:01 → MED/SURG3 20:45
PROVIDERS: ADMIT Internal Medicine; ATTEND Internal Medicine
DX: A41.9 Sepsis, unspecified organism (principal); L89.153 Pressure ulcer of sacral region, stage 3; G82.50 Quadriplegia, unspecified; N39.0 Urinary tract infection, site not specified; E87.2 Acidosis; E46 Unspecified protein-calorie malnutrition; J96.10 Chronic respiratory failure, unspecified whether with hypoxia or hypercapnia; Z16.12 Extended spectrum beta lactamase (ESBL) resistance; R65.20 Severe sepsis without septic shock; I10 Essential (primary) hypertension; Z93.6 Other artificial openings of urinary tract status; Z93.59 Other cystostomy status; D64.9 Anemia, unspecified; F20.9 Schizophrenia, unspecified; Z20.822 Contact with and (suspected) exposure to COVID-19; Z74.01 Bed confinement status; Z93.0 Tracheostomy status; B96.4 Proteus (mirabilis) (morganii) as the cause of diseases classified elsewhere; G89.4 Chronic pain syndrome
CPT/HCPCS: 36415; 80048; 80053; 81001; 82550; 82553; 82607; 82728; 82746; 82948; 83540; 83605; 83735; 84134; 84466; 84484; 85025; 85045; 87040; 87086; 87186; 93005; 94640; 94799; 96360; 96361; 99251; 99284; J0360; J2185; J2270; J2405; J7030; J7050; Q0162

== ENCOUNTER 2022-03-10 11:34 | Emergency (ER) | payer MEDICARE, OTHER ==
[~2022-03-10] VITALS: Ht 167.6 cm; Wt 49.9 kg
[2022-03-10] MEDS ORDERED: HYDROXYZINE HCL 25 MG TAB PO SCH ×2 (12:39→21:00)
[2022-03-10] MEDS ORDERED: HYDROXYZINE PAM25 MG PO (13:05)
== END 2022-03-10 15:19 | disposition home or self-care (01) ==
LOC: ER 11:35
DX: F41.9 Anxiety disorder, unspecified (principal); R61 Generalized hyperhidrosis; I10 Essential (primary) hypertension; E11.9 Type 2 diabetes mellitus without complications; G82.50 Quadriplegia, unspecified
CPT/HCPCS: 51700; 99283; J3410

== ENCOUNTER 2022-03-28 16:58 | Inpatient (IN) | payer MEDICARE, OTHER ==
[~2022-03-28] VITALS: Ht 167.6 cm; Wt 49.9 kg
[~2022-03-28 16:58] MED LIST changes: +HYDROXYZINE PAM25 MG PO
[2022-03-28] MEDS ORDERED: SODIUM CHLORIDE 0.9% 1000ML 1,000 ML IV ONE ×2 (17:15→17:30)
[2022-03-28 17:53] LABS: BASOPHILS % 0.2 % (0.0-1.0); HEMATOCRIT 37.6 % (38.2-49.6); HEMOGLOBIN 12.4 g/dL (14.0-18.0); LYMPHOCYTES # (AUTO) 1.5 (1.0-3.2); LYMPHOCYTES % 29.6 % (18.0-39.1); MONOCYTES # (AUTO) 0.5 (0.2-0.8); MONOCYTES % 9.8 % (4.4-11.3); NEUTROPHILS % 60.2 % (38.7-80.0); PLATELET COUNT 284 x10e3/uL (140-360); RED BLOOD COUNT 4.13 x10e6/uL (4.3-5.7); RED CELL DISTRIBUTION WIDTH 12.9 % (11.7-14.4)
[2022-03-28 18:07] LABS: ALBUMIN 3.4 g/dL (3.5-5.0); ALBUMIN/GLOBULIN RATIO 0.7 (0.8-2.0); ANION GAP 18.4 mmol/L (8-16); CALCIUM 8.5 mg/dL (8.4-10.2); CREATININE, SERUM 0.78 mg/dL (0.72-1.25); POTASSIUM 3.4 mmol/L (3.5-5.1)
[2022-03-28 18:49] LABS: CLARITY,URINE HAZY (CLEAR); COLOR,URINE YELLOW (YELLOW); KETONES,URINE NEGATIVE (NEGATIVE); LEUKOCYTE ESTERASE ,URINE SMALL (NEGATIVE); NITRITE,URINE NEGATIVE (NEGATIVE); PROTEIN,URINE DIPSTICK >=300 (NEGATIVE); URINE UROBILINOGEN 0.2 mg/dL (0.2 - 1)
[2022-03-28 18:52] LABS: BACTERIA,URINE MANY /HPF; EPITHELIAL CELLS,URINE FEW /LPF; WBC,URINE (MAN) 21-50 /HPF (0-5)
[2022-03-28 18:53] LABS: AMORPHOUS SEDIMENT,URINE FEW (FEW); MUCUS,URINE MODERATE (RARE); TRIPLE PHOSPHATE CRYSTAL,UR FEW (FEW)
[2022-03-28] MEDS ORDERED: ONDANSETRON HCL INJ 2MG/ML 2ML 2 MG/ML VIAL IV PRN (20:45)
[2022-03-28 23:01] VITALS: BP 160/89
[2022-03-28 23:06] VITALS: BP 160/89
[2022-03-28] MEDS: SODIUM CHLORIDE 0.9% 1000ML 1,000 ML IV SCH (23:16)
[2022-03-29] VITALS (8 sets, daily range): BP systolic 103–173; BP diastolic 72–119
[2022-03-29] MEDS: ACETAMINOPHEN 325 MG TAB PO PRN ×2 (00:26→09:44)
[2022-03-29] MEDS: SODIUM CHLORIDE 0.9% 1000ML 1,000 ML IV SCH ×2 (05:25→12:14)
[2022-03-29 05:41] LABS: HEMATOCRIT 34.5 % (38.2-49.6); HEMOGLOBIN 11.5 g/dL (14.0-18.0); LYMPHOCYTES # (AUTO) 1.9 (1.0-3.2); LYMPHOCYTES % 34.5 % (18.0-39.1); MEAN CORPUSCULAR HEMOGLOBIN 29.8 pg (28-32); MEAN CORPUSCULAR HGB CONC 33.3 g/dL (31-35); MEAN CORPUSCULAR VOLUME 89.4 fL (81-99); MONOCYTES # (AUTO) 0.4 (0.2-0.8); MONOCYTES % 6.8 % (4.4-11.3); NEUTROPHILS # (AUTO) 3.3 (2.1-6.9); NEUTROPHILS % 58.5 % (38.7-80.0); PLATELET COUNT 221 x10e3/uL (140-360); RED BLOOD COUNT 3.86 x10e6/uL (4.3-5.7); RED CELL DISTRIBUTION WIDTH 12.8 % (11.7-14.4)
[2022-03-29 06:06] LABS: ALBUMIN/GLOBULIN RATIO 0.8 (0.8-2.0); ANION GAP 14.5 mmol/L (8-16); CALCIUM 7.6 mg/dL (8.4-10.2); CREATININE, SERUM 0.57 mg/dL (0.72-1.25); POTASSIUM 3.5 mmol/L (3.5-5.1)
[2022-03-29] MEDS ORDERED: HYDRALAZINE HCL 20 MG/ML VIAL IV PRN (12:15)
[2022-03-29] MEDS: AMLODIPINE BESYLATE 5 MG TAB PO SCH (12:41)
[2022-03-29] MEDS: Morphine 2mg Syringe 2 MG/ML SYR IV PRN ×2 (12:41→17:23)
[2022-03-29] MEDS: APIXABAN 5 MG TABLET PO SCH (17:22)
[2022-03-29] MEDS: METOPROLOL TARTRATE 25 MG TAB PO SCH (17:22)
[2022-03-29] MEDS: TRAZODONE HCL 50 MG TAB PO SCH (20:48)
[2022-03-29] MEDS ORDERED: NIRMATRELVIR/RITONAVIR 1 EACH TABLET PO SCH (22:30)
[2022-03-30] VITALS (8 sets, daily range): BP systolic 104–143; BP diastolic 72–95
[2022-03-30] MEDS ORDERED: SODIUM CHLORIDE 0.9% 250ML 250 ML ONE (02:08)
[2022-03-30] MEDS: Morphine 2mg Syringe 2 MG/ML SYR IV PRN ×5 (04:35→21:39)
[2022-03-30] MEDS: ACETAMINOPHEN 325 MG TAB PO PRN (04:35)
[2022-03-30] MEDS: AMLODIPINE BESYLATE 5 MG TAB PO SCH (09:01)
[2022-03-30] MEDS: NIRMATRELVIR/RITONAVIR 1 EACH TABLET PO SCH ×2 (09:01→18:11)
[2022-03-30] MEDS: METOPROLOL TARTRATE 25 MG TAB PO SCH ×2 (09:02→18:11)
[2022-03-30] MEDS: APIXABAN 5 MG TABLET PO SCH ×2 (09:02→18:10)
[2022-03-30] MEDS: COLLAGENASE 5 GM TUBE TP SCH (17:49)
[2022-03-30] MEDS: BALSAM PERU/CASTOR OIL 60 GM OINT...G. TP SCH (17:49)
[2022-03-30] MEDS: TRAZODONE HCL 50 MG TAB PO SCH (20:38)
[2022-03-31 00:36] VITALS: BP 119/70
[2022-03-31] MEDS: Morphine 2mg Syringe 2 MG/ML SYR IV PRN ×3 (02:00→14:59)
[2022-03-31 04:00] VITALS: BP 106/80
[2022-03-31 08:00] VITALS: BP 91/70
[2022-03-31 08:40] VITALS: BP 91/70
[2022-03-31] MEDS: BALSAM PERU/CASTOR OIL 60 GM OINT...G. TP SCH (08:43)
[2022-03-31] MEDS: COLLAGENASE 5 GM TUBE TP SCH (08:43)
[2022-03-31] MEDS: APIXABAN 5 MG TABLET PO SCH (08:43)
[2022-03-31] MEDS: NIRMATRELVIR/RITONAVIR 1 EACH TABLET PO SCH (08:43)
[2022-03-31] MEDS: METOPROLOL TARTRATE 25 MG TAB PO SCH (08:44)
[2022-03-31] MEDS: AMLODIPINE BESYLATE 5 MG TAB PO SCH (08:44)
[2022-03-31 11:50] VITALS: BP 105/83
[2022-03-31] MEDS ORDERED: HEPARIN 500 UNITS/5ML MDV INJ ONE (15:15)
[2022-03-31] MEDS ORDERED: ONDANSETRON HCL 4 MG ORAL DISINTEGRATING TAB PO PRN (15:30)
[2022-03-31 15:46] VITALS: BP 115/75
== END 2022-03-31 16:38 | disposition home or self-care (01) | DRG 177 ==
LOC: ER 17:15 → ERHOLD 21:00 → MED/SURG3 22:20
PROVIDERS: ADMIT Internal Medicine; ATTEND Internal Medicine
PROC: 8E0ZXY6 Isolation (ICD-10-PCS; principal; 2022-03-28)
DX: U07.1 COVID-19 (principal); G82.50 Quadriplegia, unspecified; N39.0 Urinary tract infection, site not specified; Z93.0 Tracheostomy status; E11.9 Type 2 diabetes mellitus without complications; I10 Essential (primary) hypertension; F41.9 Anxiety disorder, unspecified; M24.511 Contracture, right shoulder; M24.512 Contracture, left shoulder; G89.4 Chronic pain syndrome; Z90.49 Acquired absence of other specified parts of digestive tract; Z87.440 Personal history of urinary (tract) infections; Z88.8 Allergy status to other drugs, medicaments and biological substances; Z93.2 Ileostomy status; B96.1 Klebsiella pneumoniae [K. pneumoniae] as the cause of diseases classified elsewhere; B96.89 Other specified bacterial agents as the cause of diseases classified elsewhere; Z86.711 Personal history of pulmonary embolism; Z93.6 Other artificial openings of urinary tract status
CPT/HCPCS: 36415; 71045; 80053; 81001; 83605; 85025; 87040; 87086; 87186; 87493; 93005; 94799; 99251; 99284; J0360; J0692; J2270; J7030; J7050

== ENCOUNTER 2022-04-02 21:21 | Inpatient (IN) | payer MEDICARE, OTHER ==
[~2022-04-02] VITALS: Ht 121.9 cm; Wt 49.9 kg
[~2022-04-02 21:21] MED LIST changes: +SODIUM CHLORIDE FLUSH 10 ML SYR IV PRN
[2022-04-02] MEDS ORDERED: ONDANSETRON HCL INJ 2MG/ML 2ML 2 MG/ML VIAL IV STA (21:28)
[2022-04-02] MEDS ORDERED: ACETAMINOPHEN 1000 MG/100 ML IV STA (21:43)
[2022-04-02] MEDS ORDERED: SODIUM CHLORIDE 0.9% 1000ML 1,000 ML IV SCH (21:45)
[2022-04-02 22:40] LABS: BASOPHILS % 0.1 % (0.0-1.0); EOSINOPHILS % 0.1 % (0.0-6.0); HEMATOCRIT 35.6 % (38.2-49.6); HEMOGLOBIN 11.9 g/dL (14.0-18.0); LYMPHOCYTES # (AUTO) 1.3 (1.0-3.2); MEAN CORPUSCULAR HEMOGLOBIN 29.6 pg (28-32); MEAN CORPUSCULAR HGB CONC 33.4 g/dL (31-35); MEAN CORPUSCULAR VOLUME 88.6 fL (81-99); MONOCYTES # (AUTO) 0.7 (0.2-0.8); NEUTROPHILS # (AUTO) 7.6 (2.1-6.9); NEUTROPHILS % 79.5 % (38.7-80.0); PLATELET COUNT 400 x10e3/uL (140-360); RED BLOOD COUNT 4.02 x10e6/uL (4.3-5.7); RED CELL DISTRIBUTION WIDTH 12.6 % (11.7-14.4)
[2022-04-02 22:45] LABS: CLARITY,URINE TURBID (CLEAR); COLOR,URINE AMBER (YELLOW); KETONES,URINE 1+ (NEGATIVE); LEUKOCYTE ESTERASE ,URINE SMALL (NEGATIVE); NITRITE,URINE NEGATIVE (NEGATIVE); PROTEIN,URINE DIPSTICK 2+ (NEGATIVE); URINE UROBILINOGEN 1 mg/dL (0.2 - 1)
[2022-04-02 22:50] LABS: AMORPHOUS SEDIMENT,URINE FEW (FEW); BACTERIA,URINE MODERATE /HPF; EPITHELIAL CELLS,URINE FEW /LPF; INR 1.08; MUCUS,URINE MODERATE (RARE); WBC,URINE (MAN) >50 /HPF (0-5)
[2022-04-02 22:51] LABS: PARTIAL THROMBOPLASTIN TIME 40.8 seconds (23.8-35.5)
[2022-04-02 23:02] LABS: ALBUMIN 3.3 g/dL (3.5-5.0); ALBUMIN/GLOBULIN RATIO 0.7 (0.8-2.0); ANION GAP 18.1 mmol/L (8-16); CREATININE, SERUM 0.69 mg/dL (0.72-1.25); POTASSIUM 3.1 mmol/L (3.5-5.1)
[2022-04-02] MEDS ORDERED: POTASSIUM CHLORIDE 10MEQ EA PO ONE (23:45)
[2022-04-02] MEDS: SODIUM CHLORIDE 0.9% 1000ML 1,000 ML IV SCH ×2 (23:49→23:52)
[2022-04-03] MEDS ORDERED: ONDANSETRON HCL INJ 2MG/ML 2ML 2 MG/ML VIAL IV PRN
[2022-04-03] MEDS: SODIUM CHLORIDE 0.9% 1000ML 1,000 ML IV SCH ×3 (00:32→17:39)
[2022-04-03 06:19] LABS: BASOPHILS % 0.2 % (0.0-1.0); EOSINOPHILS % 0.2 % (0.0-6.0); HEMATOCRIT 31.8 % (38.2-49.6); HEMOGLOBIN 10.4 g/dL (14.0-18.0); LYMPHOCYTES # (AUTO) 1.9 (1.0-3.2); LYMPHOCYTES % 19.8 % (18.0-39.1); MEAN CORPUSCULAR HEMOGLOBIN 29.5 pg (28-32); MEAN CORPUSCULAR HGB CONC 32.7 g/dL (31-35); MEAN CORPUSCULAR VOLUME 90.3 fL (81-99); MONOCYTES # (AUTO) 0.6 (0.2-0.8); MONOCYTES % 6.5 % (4.4-11.3); NEUTROPHILS # (AUTO) 7.1 (2.1-6.9); NEUTROPHILS % 72.8 % (38.7-80.0); PLATELET COUNT 349 x10e3/uL (140-360); RED BLOOD COUNT 3.52 x10e6/uL (4.3-5.7); RED CELL DISTRIBUTION WIDTH 12.8 % (11.7-14.4)
[2022-04-03 06:41] LABS: ALBUMIN 2.7 g/dL (3.5-5.0); ALBUMIN/GLOBULIN RATIO 0.6 (0.8-2.0); CALCIUM 7.8 mg/dL (8.4-10.2); CREATININE, SERUM 0.57 mg/dL (0.72-1.25)
[2022-04-03] MEDS ORDERED: AMLODIPINE BESYLATE 5 MG TAB PO SCH (09:00)
[2022-04-03] MEDS ORDERED: ACETAMINOPHEN 325 MG TAB PO PRN ×2 (09:00)
[2022-04-03] MEDS: METOPROLOL TARTRATE 25 MG TAB PO SCH ×2 (09:11→17:39)
[2022-04-03] MEDS: APIXABAN 5 MG TABLET PO SCH ×2 (09:50→17:40)
[2022-04-03] MEDS: Morphine 2mg Syringe 2 MG/ML SYR IV PRN ×2 (11:09→23:06)
[2022-04-03 14:22] VITALS: BP 177/125
[2022-04-03 15:47] VITALS: BP 196/96
[2022-04-03 18:52] VITALS: BP 196/96
[2022-04-03 19:15] VITALS: BP 196/96
[2022-04-03 19:31] VITALS: BP 196/96
[2022-04-03 20:00] VITALS: BP 139/67
[2022-04-03] MEDS: TRAZODONE HCL 50 MG TAB PO SCH (21:00)
[2022-04-04] VITALS (7 sets, daily range): BP systolic 108–131; BP diastolic 82–94
[2022-04-04] MEDS: Morphine 2mg Syringe 2 MG/ML SYR IV PRN ×4 (05:54→21:52)
[2022-04-04 06:03] LABS: BASOPHILS % 0.2 % (0.0-1.0); EOSINOPHILS % 2.3 % (0.0-6.0); HEMATOCRIT 29.6 % (38.2-49.6); HEMOGLOBIN 9.5 g/dL (14.0-18.0); LYMPHOCYTES % 27.6 % (18.0-39.1); MEAN CORPUSCULAR HEMOGLOBIN 29.7 pg (28-32); MEAN CORPUSCULAR HGB CONC 32.1 g/dL (31-35); MEAN CORPUSCULAR VOLUME 92.5 fL (81-99); MONOCYTES % 7.3 % (4.4-11.3); NEUTROPHILS # (AUTO) 3.5 (2.1-6.9); NEUTROPHILS % 62.4 % (38.7-80.0); PLATELET COUNT 357 x10e3/uL (140-360); RED CELL DISTRIBUTION WIDTH 12.7 % (11.7-14.4)
[2022-04-04 06:04] LABS: EOSINOPHILS # (AUTO) 0.1 (0.0-0.4); LYMPHOCYTES # (AUTO) 1.6 (1.0-3.2); MONOCYTES # (AUTO) 0.4 (0.2-0.8)
[2022-04-04 06:40] LABS: ALBUMIN 2.6 g/dL (3.5-5.0); ALBUMIN/GLOBULIN RATIO 0.7 (0.8-2.0); ANION GAP 14.7 mmol/L (8-16); CALCIUM 8.1 mg/dL (8.4-10.2); CREATININE, SERUM 0.49 mg/dL (0.72-1.25); MAGNESIUM 1.4 MG/DL (1.3-2.1); POTASSIUM 3.7 mmol/L (3.5-5.1)
[2022-04-04] MEDS: SODIUM CHLORIDE 0.9% 1000ML 1,000 ML IV SCH ×4 (10:28→21:52)
[2022-04-04] MEDS: METOPROLOL TARTRATE 25 MG TAB PO SCH ×2 (10:29→17:04)
[2022-04-04] MEDS: APIXABAN 5 MG TABLET PO SCH ×2 (10:30→17:05)
[2022-04-04] MEDS: TRAZODONE HCL 50 MG TAB PO SCH (21:51)
[2022-04-05] VITALS (7 sets, daily range): BP systolic 115–155; BP diastolic 80–99
[2022-04-05] MEDS: Morphine 2mg Syringe 2 MG/ML SYR IV PRN ×7 (05:20→22:31)
[2022-04-05] MEDS: SODIUM CHLORIDE 0.9% 1000ML 1,000 ML IV SCH ×2 (08:10→17:39)
[2022-04-05] MEDS: METOPROLOL TARTRATE 25 MG TAB PO SCH ×2 (08:11→17:41)
[2022-04-05] MEDS: APIXABAN 5 MG TABLET PO SCH ×2 (08:11→17:40)
[2022-04-05] MEDS: TRAZODONE HCL 50 MG TAB PO SCH (20:27)
[2022-04-06] VITALS (7 sets, daily range): BP systolic 98–134; BP diastolic 80–88
[2022-04-06] MEDS: Morphine 2mg Syringe 2 MG/ML SYR IV PRN ×7 (00:25→20:32)
[2022-04-06] MEDS: SODIUM CHLORIDE 0.9% 1000ML 1,000 ML IV SCH ×2 (00:27→08:27)
[2022-04-06] MEDS: APIXABAN 5 MG TABLET PO SCH ×2 (08:24→16:14)
[2022-04-06] MEDS: METOPROLOL TARTRATE 25 MG TAB PO SCH ×2 (08:24→16:14)
[2022-04-06] MEDS ORDERED: ONDANSETRON HCL 4 MG ORAL DISINTEGRATING TAB PO PRN (09:30)
[2022-04-06] MEDS: TRAZODONE HCL 50 MG TAB PO SCH (21:48)
[2022-04-07] VITALS (8 sets, daily range): BP systolic 131–176; BP diastolic 96–108
[2022-04-07] MEDS: Morphine 2mg Syringe 2 MG/ML SYR IV PRN ×5 (00:36→20:28)
[2022-04-07] MEDS: METOPROLOL TARTRATE 25 MG TAB PO SCH ×2 (08:42→16:12)
[2022-04-07] MEDS: APIXABAN 5 MG TABLET PO SCH ×2 (08:42→16:12)
[2022-04-07] MEDS ORDERED: HYDRALAZINE HCL 10 MG TAB PO PRN (09:30)
[2022-04-07] MEDS: AMLODIPINE BESYLATE 5 MG TAB PO SCH (12:16)
[2022-04-07] MEDS: TRAZODONE HCL 50 MG TAB PO SCH (20:28)
[2022-04-08 00:02] VITALS: BP 136/107
[2022-04-08 01:34] VITALS: BP 132/98
[2022-04-08] MEDS: Morphine 2mg Syringe 2 MG/ML SYR IV PRN ×2 (04:07→08:03)
[2022-04-08 05:50] VITALS: BP 131/96
[2022-04-08] MEDS: APIXABAN 5 MG TABLET PO SCH (08:02)
[2022-04-08] MEDS: METOPROLOL TARTRATE 25 MG TAB PO SCH (08:02)
[2022-04-08] MEDS: AMLODIPINE BESYLATE 5 MG TAB PO SCH (08:02)
[2022-04-08 08:13] VITALS: BP 150/107
[2022-04-08 09:52] VITALS: BP 150/107
[2022-04-08 11:25] VITALS: BP 138/100
[2022-04-08] MEDS ORDERED: HEPARIN SOD (PORCINE) 1000 UNIT/ML SDV ONE (11:51)
== END 2022-04-08 12:00 | disposition home or self-care (01) | DRG 871 ==
LOC: ER 21:30 → ERHOLD 23:56 → MED/SURG2 04-03 14:05
PROVIDERS: ADMIT Internal Medicine; ATTEND Internal Medicine
DX: A41.9 Sepsis, unspecified organism (principal); G82.50 Quadriplegia, unspecified; L89.154 Pressure ulcer of sacral region, stage 4; U07.1 COVID-19; N39.0 Urinary tract infection, site not specified; N41.0 Acute prostatitis; E44.0 Moderate protein-calorie malnutrition; J96.10 Chronic respiratory failure, unspecified whether with hypoxia or hypercapnia; Z16.12 Extended spectrum beta lactamase (ESBL) resistance; Z93.0 Tracheostomy status; Z93.59 Other cystostomy status; E86.0 Dehydration; F20.9 Schizophrenia, unspecified; B96.4 Proteus (mirabilis) (morganii) as the cause of diseases classified elsewhere; B96.5 Pseudomonas (aeruginosa) (mallei) (pseudomallei) as the cause of diseases classified elsewhere; I10 Essential (primary) hypertension; E11.9 Type 2 diabetes mellitus without complications; F41.9 Anxiety disorder, unspecified; Z93.6 Other artificial openings of urinary tract status; Z93.3 Colostomy status; Z88.8 Allergy status to other drugs, medicaments and biological substances; Z74.01 Bed confinement status; E66.9 Obesity, unspecified; Z68.33 Body mass index [BMI] 33.0-33.9, adult; N31.9 Neuromuscular dysfunction of bladder, unspecified; Q54.9 Hypospadias, unspecified; D64.9 Anemia, unspecified
CPT/HCPCS: 0223U; 36415; 71045; 74176; 80053; 81001; 82948; 83605; 83690; 83735; 85025; 85610; 85730; 87040; 87086; 87186; 93005; 94799; 99251; 99285; J0456; J0692; J0696; J1644; J2270; J2405; J2543; J7030; J7050; Q0162

== ENCOUNTER 2022-05-06 14:04 | Emergency (ER) | payer MEDICARE, OTHER ==
[~2022-05-06] VITALS: Ht 289.6 cm; Wt 49.9 kg
[~2022-05-06 14:04] MED LIST changes: -SODIUM CHLORIDE FLUSH 10 ML SYR IV PRN
[2022-05-06] MEDS ORDERED: Morphine 4mg INJECTION 4 MG/ML INJ IV STA (14:23)
[2022-05-06] MEDS ORDERED: ONDANSETRON HCL INJ 2MG/ML 2ML 2 MG/ML VIAL IV STA (14:23)
[2022-05-06] MEDS ORDERED: SODIUM CHLORIDE 0.9% 1000ML 1,000 ML IV STA (14:23)
[2022-05-06 14:58] LABS: BASOPHILS % 0.4 % (0.0-1.0); EOSINOPHILS # (AUTO) 0.3 (0.0-0.4); HEMATOCRIT 35.2 % (38.2-49.6); HEMOGLOBIN 11.1 g/dL (14.0-18.0); LYMPHOCYTES # (AUTO) 1.8 (1.0-3.2); LYMPHOCYTES % 21.9 % (18.0-39.1); MEAN CORPUSCULAR HEMOGLOBIN 29.4 pg (28-32); MEAN CORPUSCULAR HGB CONC 31.5 g/dL (31-35); MEAN CORPUSCULAR VOLUME 93.4 fL (81-99); MONOCYTES # (AUTO) 0.5 (0.2-0.8); MONOCYTES % 5.4 % (4.4-11.3); NEUTROPHILS # (AUTO) 5.8 (2.1-6.9); NEUTROPHILS % 68.9 % (38.7-80.0); PLATELET COUNT 572 x10e3/uL (140-360); RED BLOOD COUNT 3.77 x10e6/uL (4.3-5.7); RED CELL DISTRIBUTION WIDTH 14.2 % (11.7-14.4)
[2022-05-06 15:20] LABS: ANION GAP 15.9 mmol/L (8-16); CALCIUM 8.8 mg/dL (8.4-10.2); CREATININE, SERUM 0.54 mg/dL (0.72-1.25); POTASSIUM 3.9 mmol/L (3.5-5.1)
== END 2022-05-06 17:45 | disposition home or self-care (01) ==
LOC: ER 14:06
DX: L89.159 Pressure ulcer of sacral region, unspecified stage (principal); G82.50 Quadriplegia, unspecified; R50.9 Fever, unspecified; I10 Essential (primary) hypertension; E11.9 Type 2 diabetes mellitus without complications; F41.9 Anxiety disorder, unspecified; Z93.3 Colostomy status
CPT/HCPCS: 36415; 80048; 85025; 94640; 94799; 99284; J2270; J2405; J7030

== ENCOUNTER 2022-05-25 15:29 | Inpatient (IN) | payer MEDICARE, OTHER ==
[~2022-05-25] VITALS: Ht 170.2 cm; Wt 29.1 kg
[2022-05-25] MEDS ORDERED: SODIUM CHLORIDE 0.9% 1000ML 1,000 ML IV STA (15:39)
[2022-05-25 16:22] LABS: BASOPHILS % 0.5 % (0.0-1.0); EOSINOPHILS # (AUTO) 0.1 (0.0-0.4); EOSINOPHILS % 1.9 % (0.0-6.0); HEMATOCRIT 34.4 % (38.2-49.6); HEMOGLOBIN 10.8 g/dL (14.0-18.0); LYMPHOCYTES # (AUTO) 1.6 (1.0-3.2); LYMPHOCYTES % 27.6 % (18.0-39.1); MEAN CORPUSCULAR HGB CONC 31.4 g/dL (31-35); MEAN CORPUSCULAR VOLUME 92.5 fL (81-99); MONOCYTES # (AUTO) 0.3 (0.2-0.8); MONOCYTES % 5.3 % (4.4-11.3); NEUTROPHILS # (AUTO) 3.7 (2.1-6.9); NEUTROPHILS % 64.5 % (38.7-80.0); PLATELET COUNT 452 x10e3/uL (140-360); RED BLOOD COUNT 3.72 x10e6/uL (4.3-5.7); RED CELL DISTRIBUTION WIDTH 13.1 % (11.7-14.4)
[2022-05-25 16:42] LABS: ALBUMIN 3.1 g/dL (3.5-5.0); ALBUMIN/GLOBULIN RATIO 0.7 (0.8-2.0); ANION GAP 15.8 mmol/L (8-16); CALCIUM 9.3 mg/dL (8.4-10.2); CREATININE, SERUM 0.54 mg/dL (0.72-1.25); POTASSIUM 3.8 mmol/L (3.5-5.1)
[2022-05-25 17:45] LABS: CREATINE KINASE 39 IU/L (30-200)
[2022-05-25] MEDS: SODIUM CHLORIDE 0.9% 1000ML 1,000 ML IV SCH (18:11)
[2022-05-25 18:19] LABS: CLARITY,URINE TURBID (CLEAR); COLOR,URINE YELLOW (YELLOW); LEUKOCYTE ESTERASE ,URINE LARGE (NEGATIVE); NITRITE,URINE POSITIVE (NEGATIVE)
[2022-05-25 18:20] LABS: PROTEIN,URINE DIPSTICK 1+ (NEGATIVE); URINE UROBILINOGEN 0.2 mg/dL (0.2 - 1)
[2022-05-25 18:21] LABS: KETONES,URINE NEGATIVE (NEGATIVE)
[2022-05-25 18:35] LABS: AMORPHOUS SEDIMENT,URINE MODERATE (FEW); BACTERIA,URINE MODERATE /HPF; RBC,URINE 0-5 /HPF (0-5)
[2022-05-25 21:05] VITALS: BP 116/80
[2022-05-25 22:23] VITALS: BP 116/80
[2022-05-26] VITALS (7 sets, daily range): BP systolic 94–185; BP diastolic 53–120
[2022-05-26] MEDS: SODIUM CHLORIDE 0.9% 1000ML 1,000 ML IV SCH ×3 (02:18→16:18)
[2022-05-26 05:51] LABS: BASOPHILS % 0.3 % (0.0-1.0); EOSINOPHILS # (AUTO) 0.2 (0.0-0.4); EOSINOPHILS % 1.7 % (0.0-6.0); HEMATOCRIT 38.1 % (38.2-49.6); HEMOGLOBIN 12.1 g/dL (14.0-18.0); LYMPHOCYTES # (AUTO) 3.6 (1.0-3.2); LYMPHOCYTES % 39.1 % (18.0-39.1); MEAN CORPUSCULAR HEMOGLOBIN 28.9 pg (28-32); MEAN CORPUSCULAR HGB CONC 31.8 g/dL (31-35); MEAN CORPUSCULAR VOLUME 90.9 fL (81-99); MONOCYTES # (AUTO) 0.5 (0.2-0.8); MONOCYTES % 5.4 % (4.4-11.3); NEUTROPHILS # (AUTO) 4.9 (2.1-6.9); NEUTROPHILS % 53.3 % (38.7-80.0); PLATELET COUNT 503 x10e3/uL (140-360); RED BLOOD COUNT 4.19 x10e6/uL (4.3-5.7); RED CELL DISTRIBUTION WIDTH 13.2 % (11.7-14.4)
[2022-05-26 06:19] LABS: ALBUMIN 3.3 g/dL (3.5-5.0); ALBUMIN/GLOBULIN RATIO 0.8 (0.8-2.0); ANION GAP 15.6 mmol/L (8-16); CALCIUM 9.3 mg/dL (8.4-10.2); CREATININE, SERUM 0.48 mg/dL (0.72-1.25); POTASSIUM 3.6 mmol/L (3.5-5.1)
[2022-05-26 07:10] LABS: CREATINE KINASE 44 IU/L (30-200)
[2022-05-26] MEDS ORDERED: HYDROCODONE/APAP 7.5MG-325MG 1 EA TAB PO PRN (10:30)
[2022-05-26] MEDS ORDERED: TRAMADOL HCL 50 MG TAB PO PRN (10:30)
[2022-05-26] MEDS: Morphine 2mg Syringe 2 MG/ML SYR IV PRN ×5 (11:02→20:39)
[2022-05-26] MEDS ORDERED: ONDANSETRON HCL INJ 2MG/ML 2ML 2 MG/ML VIAL IV PRN (11:30)
[2022-05-26] MEDS ORDERED: ACETAMIN/BUTALBITAL/CAFFEINE TAB PO ONE (11:30)
[2022-05-26] MEDS ORDERED: ACETAMIN/BUTALBITAL/CAFFEINE TAB PO PRN (11:30)
[2022-05-26] MEDS ORDERED: ACETAMINOPHEN 325 MG TAB PO PRN (11:30)
[2022-05-26] MEDS: FAMOTIDINE 20 MG TAB PO SCH (16:18)
[2022-05-27] VITALS (8 sets, daily range): BP systolic 106–170; BP diastolic 59–115
[2022-05-27] MEDS: SODIUM CHLORIDE 0.9% 1000ML 1,000 ML IV SCH ×3 (01:00→17:16)
[2022-05-27] MEDS: Morphine 2mg Syringe 2 MG/ML SYR IV PRN ×7 (02:57→21:26)
[2022-05-27 06:12] LABS: % IRON SATURATION 15 % (15-50); ALANINE AMINOTRANSFERASE < 6 IU/L (0-55); ALBUMIN 2.4 g/dL (3.5-5.0); ALBUMIN/GLOBULIN RATIO 0.7 (0.8-2.0); ALKALINE PHOSPHATASE 70 IU/L (40-150); ANION GAP 9.2 mmol/L (8-16); BLOOD UREA NITROGEN 9 mg/dL (7-26); BUN/CREATININE RATIO 18 (6-25); CALCIUM 8.1 mg/dL (8.4-10.2); CARBON DIOXIDE 22 mmol/L (22-29); CHLORIDE 112 mmol/L (98-107); CHOL/HDL RATIO 3.4 (3.9-4.7); CHOLESTEROL 115 MD/DL (0-199); CREATININE, SERUM 0.51 mg/dL (0.72-1.25); GLUCOSE 116 mg/dL (74-118); HDL CHOLESTEROL 34 MG/DL (40-60); IRON 31 ug/dL (65-175); LDL CHOLESTEROL 72 MG/DL (60-130); MAGNESIUM 1.5 MG/DL (1.3-2.1); PHOSPHORUS 2.8 MG/DL (2.3-4.7); POTASSIUM 3.2 mmol/L (3.5-5.1); SODIUM 140 mmol/L (136-145); TOTAL IRON BINDING CAPACITY 211 ug/dL (261-478); TRANSFERRIN 151 mg/dL (174-364); TRIGLYCERIDES 45 MG/DL (0-149)
[2022-05-27 06:19] LABS: FERRITIN 95.48 ng/mL (21.81-274.66); THYROID STIMULATING HORMONE 1.238 uIU/mL (0.350-4.940)
[2022-05-27 06:40] LABS: BASOPHILS % 0.4 % (0.0-1.0); EOSINOPHILS # (AUTO) 0.2 (0.0-0.4); EOSINOPHILS % 3.9 % (0.0-6.0); HEMATOCRIT 27.1 % (38.2-49.6); LYMPHOCYTES # (AUTO) 1.8 (1.0-3.2); MEAN CORPUSCULAR HEMOGLOBIN 29.2 pg (28-32); MEAN CORPUSCULAR HGB CONC 31.4 g/dL (31-35); MEAN CORPUSCULAR VOLUME 93.1 fL (81-99); MONOCYTES # (AUTO) 0.3 (0.2-0.8); MONOCYTES % 5.1 % (4.4-11.3); NEUTROPHILS # (AUTO) 3.4 (2.1-6.9); NEUTROPHILS % 59.4 % (38.7-80.0); RED BLOOD COUNT 2.91 x10e6/uL (4.3-5.7); RED CELL DISTRIBUTION WIDTH 12.9 % (11.7-14.4)
[2022-05-27 06:46] LABS: HEMOGLOBIN 8.5 g/dL (14.0-18.0); PLATELET COUNT 329 x10e3/uL (140-360)
[2022-05-27] MEDS: FAMOTIDINE 20 MG TAB PO SCH ×2 (09:09→17:16)
[2022-05-27] MEDS: HYDRALAZINE HCL 20 MG/ML VIAL IV PRN (11:34)
[2022-05-28] VITALS (8 sets, daily range): BP systolic 99–194; BP diastolic 64–124
[2022-05-28] MEDS: Morphine 2mg Syringe 2 MG/ML SYR IV PRN ×7 (00:06→21:42)
[2022-05-28] MEDS: SODIUM CHLORIDE 0.9% 1000ML 1,000 ML IV SCH ×3 (01:00→17:40)
[2022-05-28] MEDS: HYDRALAZINE HCL 20 MG/ML VIAL IV PRN (03:08)
[2022-05-28] MEDS: FAMOTIDINE 20 MG TAB PO SCH ×2 (09:16→15:32)
[2022-05-28 13:03] LABS: BASOPHILS % 0.5 % (0.0-1.0); EOSINOPHILS # (AUTO) 0.2 (0.0-0.4); EOSINOPHILS % 3.8 % (0.0-6.0); HEMATOCRIT 28.8 % (38.2-49.6); LYMPHOCYTES # (AUTO) 1.2 (1.0-3.2); LYMPHOCYTES % 21.5 % (18.0-39.1); MEAN CORPUSCULAR HGB CONC 31.3 g/dL (31-35); MEAN CORPUSCULAR VOLUME 92.9 fL (81-99); MONOCYTES # (AUTO) 0.2 (0.2-0.8); NEUTROPHILS # (AUTO) 3.9 (2.1-6.9); PLATELET COUNT 353 x10e3/uL (140-360); RED CELL DISTRIBUTION WIDTH 13.2 % (11.7-14.4)
[2022-05-28 13:22] LABS: ANION GAP 12.1 mmol/L (8-16); CALCIUM 8.1 mg/dL (8.4-10.2); CREATININE, SERUM 0.45 mg/dL (0.72-1.25); POTASSIUM 3.1 mmol/L (3.5-5.1)
[2022-05-28] MEDS ORDERED: POTASSIUM CHLORIDE 20 MEQ TAB CR PO ONE ×2 (14:00→16:00)
[2022-05-29 00:54] VITALS: BP 167/106
[2022-05-29] MEDS: Morphine 2mg Syringe 2 MG/ML SYR IV PRN ×6 (01:00→16:50)
[2022-05-29] MEDS: SODIUM CHLORIDE 0.9% 1000ML 1,000 ML IV SCH ×3 (01:00→18:20)
[2022-05-29] MEDS: HYDRALAZINE HCL 20 MG/ML VIAL IV PRN (04:20)
[2022-05-29 04:32] VITALS: BP 202/138
[2022-05-29 06:10] LABS: ANION GAP 10.6 mmol/L (8-16); CALCIUM 8.3 mg/dL (8.4-10.2); CREATININE, SERUM 0.49 mg/dL (0.72-1.25); POTASSIUM 3.6 mmol/L (3.5-5.1)
[2022-05-29] MEDS: FAMOTIDINE 20 MG TAB PO SCH ×2 (07:36→16:30)
[2022-05-29 07:54] VITALS: BP 94/62
[2022-05-29 08:44] VITALS: BP 94/62
[2022-05-29 11:43] VITALS: BP 107/77
[2022-05-29 15:53] VITALS: BP 101/67
[2022-05-29] MEDS ORDERED: ONDANSETRON HCL 4 MG ORAL DISINTEGRATING TAB PO PRN (17:00)
== END 2022-05-29 19:56 | DRG 698 ==
LOC: ER 15:32 → ERHOLD 16:59 → MED/SURG3 20:56
DX: T83.510A Infection and inflammatory reaction due to cystostomy catheter, initial encounter (principal); A41.59 Other Gram-negative sepsis; G82.50 Quadriplegia, unspecified; R57.1 Hypovolemic shock; N39.0 Urinary tract infection, site not specified; J96.10 Chronic respiratory failure, unspecified whether with hypoxia or hypercapnia; Z16.12 Extended spectrum beta lactamase (ESBL) resistance; Z16.24 Resistance to multiple antibiotics; E44.1 Mild protein-calorie malnutrition; Z68.1 Body mass index [BMI] 19.9 or less, adult; N99.521 Infection of incontinent external stoma of urinary tract; G89.4 Chronic pain syndrome; F20.9 Schizophrenia, unspecified; Z74.01 Bed confinement status; Z20.822 Contact with and (suspected) exposure to COVID-19; Z88.8 Allergy status to other drugs, medicaments and biological substances; Z93.0 Tracheostomy status; E86.0 Dehydration; R33.9 Retention of urine, unspecified; N31.9 Neuromuscular dysfunction of bladder, unspecified; R31.9 Hematuria, unspecified; D63.8 Anemia in other chronic diseases classified elsewhere; Z86.16 Personal history of COVID-19; Z90.49 Acquired absence of other specified parts of digestive tract; E11.9 Type 2 diabetes mellitus without complications; F41.9 Anxiety disorder, unspecified; M24.59 Contracture, other specified joint; T83.022A Displacement of nephrostomy catheter, initial encounter
CPT/HCPCS: 0223U; 36415; 80048; 80053; 80061; 81001; 82550; 82553; 82607; 82728; 82746; 83036; 83540; 83605; 83735; 84100; 84443; 84466; 84484; 85025; 85045; 87040; 87086; 87186; 94799; 99251; 99284; J0360; J2270; J2405; J2543; J7030

== ENCOUNTER 2022-07-02 13:39 | Inpatient (IN) | payer MEDICARE, OTHER ==
[~2022-07-02] VITALS: Ht 170.2 cm; Wt 29.0 kg
[2022-07-02] MEDS ORDERED: SODIUM CHLORIDE 0.9% 1000ML 1,000 ML IV ONE (14:15)
[2022-07-02] MEDS ORDERED: Vancomycin IV 1 GM in SODIUM CHLORIDE 0.9% 250ML 250 ML IV ONE (14:45)
[2022-07-02] MEDS ORDERED: ONDANSETRON HCL INJ 2MG/ML 2ML 2 MG/ML VIAL IV STA (15:03)
[2022-07-02 15:11] LABS: BASOPHILS % 0.3 % (0.0-1.0); EOSINOPHILS # (AUTO) 0.2 (0.0-0.4); EOSINOPHILS % 2.1 % (0.0-6.0); HEMATOCRIT 39.2 % (38.2-49.6); HEMOGLOBIN 12.2 g/dL (14.0-18.0); LYMPHOCYTES # (AUTO) 1.8 (1.0-3.2); LYMPHOCYTES % 22.5 % (18.0-39.1); MEAN CORPUSCULAR HEMOGLOBIN 28.9 pg (28-32); MEAN CORPUSCULAR HGB CONC 31.1 g/dL (31-35); MEAN CORPUSCULAR VOLUME 92.9 fL (81-99); MONOCYTES # (AUTO) 0.4 (0.2-0.8); MONOCYTES % 5.4 % (4.4-11.3); NEUTROPHILS # (AUTO) 5.5 (2.1-6.9); NEUTROPHILS % 69.4 % (38.7-80.0); PLATELET COUNT 450 x10e3/uL (140-360); RED BLOOD COUNT 4.22 x10e6/uL (4.3-5.7); RED CELL DISTRIBUTION WIDTH 12.8 % (11.7-14.4)
[2022-07-02] MEDS ORDERED: Morphine 4mg INJECTION 4 MG/ML INJ IV ONE (15:15)
[2022-07-02 15:23] LABS: INR 0.91; PROTHROMBIN TIME 13.1 seconds (11.9-14.5)
[2022-07-02 15:24] LABS: PARTIAL THROMBOPLASTIN TIME 37.9 seconds (23.8-35.5)
[2022-07-02] MEDS: MEROPENEM 1 GM in SODIUM CHLORIDE 0.9% 100 ML IV SCH ×2 (15:26→22:48)
[2022-07-02 15:33] LABS: ALBUMIN 3.6 g/dL (3.5-5.0); ALBUMIN/GLOBULIN RATIO 0.8 (0.8-2.0); CALCIUM 9.4 mg/dL (8.4-10.2); CREATININE, SERUM 0.59 mg/dL (0.72-1.25)
[2022-07-02 16:39] LABS: CLARITY,URINE CLOUDY (CLEAR); COLOR,URINE YELLOW (YELLOW); KETONES,URINE NEGATIVE (NEGATIVE); LEUKOCYTE ESTERASE ,URINE MODERATE (NEGATIVE); NITRITE,URINE POSITIVE (NEGATIVE); PROTEIN,URINE DIPSTICK >=300 (NEGATIVE); URINE UROBILINOGEN 0.2 mg/dL (0.2 - 1)
[2022-07-02 16:56] LABS: BACTERIA,URINE MODERATE /HPF; RBC,URINE 0-5 /HPF (0-5)
[2022-07-02 16:57] LABS: TRIPLE PHOSPHATE CRYSTAL,UR MODERATE (FEW)
[2022-07-02] MEDS ORDERED: SODIUM CHLORIDE FLUSH 10 ML SYR INJ PRN (17:15)
[2022-07-02] MEDS: Morphine 4mg INJECTION 4 MG/ML INJ IV PRN ×2 (18:46→22:53)
[2022-07-02] MEDS: ONDANSETRON HCL INJ 2MG/ML 2ML 2 MG/ML VIAL IV PRN (18:47)
[2022-07-02 21:19] VITALS: BP 148/109
[2022-07-02] MEDS ORDERED: SODIUM CHLORIDE 0.9% 250ML 250 ML ONE (22:37)
[2022-07-02 22:53] VITALS: BP 148/109
[2022-07-02 23:18] VITALS: BP 148/109
[2022-07-03] VITALS (8 sets, daily range): BP systolic 101–152; BP diastolic 77–107
[2022-07-03 05:55] LABS: BASOPHILS % 0.4 % (0.0-1.0); EOSINOPHILS # (AUTO) 0.3 (0.0-0.4); HEMOGLOBIN 11.6 g/dL (14.0-18.0); LYMPHOCYTES # (AUTO) 3.6 (1.0-3.2); LYMPHOCYTES % 44.9 % (18.0-39.1); MEAN CORPUSCULAR HEMOGLOBIN 29.2 pg (28-32); MEAN CORPUSCULAR HGB CONC 32.2 g/dL (31-35); MEAN CORPUSCULAR VOLUME 90.7 fL (81-99); MONOCYTES # (AUTO) 0.6 (0.2-0.8); NEUTROPHILS # (AUTO) 3.5 (2.1-6.9); NEUTROPHILS % 43.4 % (38.7-80.0); PLATELET COUNT 391 x10e3/uL (140-360); RED BLOOD COUNT 3.97 x10e6/uL (4.3-5.7)
[2022-07-03 06:23] LABS: CREATININE, SERUM 0.56 mg/dL (0.72-1.25)
[2022-07-03] MEDS: MEROPENEM 1 GM in SODIUM CHLORIDE 0.9% 100 ML IV SCH ×2 (06:30→13:08)
[2022-07-03] MEDS ORDERED: ACETAMINOPHEN 325 MG TAB PO PRN (08:15)
[2022-07-03] MEDS: METOPROLOL TARTRATE 25 MG TAB PO SCH ×2 (09:04→18:00)
[2022-07-03] MEDS: SENNOSIDES 8.6 MG TAB PO SCH (09:04)
[2022-07-03] MEDS: DOCUSATE SODIUM 100 MG CAP PO SCH (09:04)
[2022-07-03] MEDS: APIXABAN 5 MG TABLET PO SCH ×2 (09:04→18:00)
[2022-07-03] MEDS: AMLODIPINE BESYLATE 5 MG TAB PO SCH ×2 (09:05→18:00)
[2022-07-03] MEDS: Morphine 4mg INJECTION 4 MG/ML INJ IV PRN ×4 (09:05→22:04)
[2022-07-03] MEDS: ONDANSETRON HCL INJ 2MG/ML 2ML 2 MG/ML VIAL IV PRN ×2 (13:09→17:27)
[2022-07-03] MEDS: TRAZODONE HCL 50 MG TAB PO SCH (20:52)
[2022-07-04] VITALS (8 sets, daily range): BP systolic 81–139; BP diastolic 55–90
[2022-07-04] MEDS: Morphine 4mg INJECTION 4 MG/ML INJ IV PRN ×5 (06:36→22:41)
[2022-07-04] MEDS: METOPROLOL TARTRATE 25 MG TAB PO SCH ×2 (09:00→16:43)
[2022-07-04] MEDS: AMLODIPINE BESYLATE 5 MG TAB PO SCH ×2 (09:00→16:43)
[2022-07-04] MEDS: SENNOSIDES 8.6 MG TAB PO SCH (09:00)
[2022-07-04] MEDS: DOCUSATE SODIUM 100 MG CAP PO SCH (09:50)
[2022-07-04] MEDS: APIXABAN 5 MG TABLET PO SCH ×2 (09:50→16:42)
[2022-07-04 10:17] LABS: BASOPHILS % 0.2 % (0.0-1.0); EOSINOPHILS # (AUTO) 0.3 (0.0-0.4); EOSINOPHILS % 4.1 % (0.0-6.0); HEMATOCRIT 35.1 % (38.2-49.6); HEMOGLOBIN 10.8 g/dL (14.0-18.0); LYMPHOCYTES # (AUTO) 1.8 (1.0-3.2); LYMPHOCYTES % 28.9 % (18.0-39.1); MEAN CORPUSCULAR HEMOGLOBIN 28.9 pg (28-32); MEAN CORPUSCULAR HGB CONC 30.8 g/dL (31-35); MEAN CORPUSCULAR VOLUME 93.9 fL (81-99); MONOCYTES # (AUTO) 0.3 (0.2-0.8); MONOCYTES % 4.7 % (4.4-11.3); NEUTROPHILS # (AUTO) 3.8 (2.1-6.9); NEUTROPHILS % 61.9 % (38.7-80.0); PLATELET COUNT 355 x10e3/uL (140-360); RED BLOOD COUNT 3.74 x10e6/uL (4.3-5.7); RED CELL DISTRIBUTION WIDTH 12.5 % (11.7-14.4)
[2022-07-04 10:57] LABS: ALBUMIN 3.1 g/dL (3.5-5.0); ALBUMIN/GLOBULIN RATIO 0.8 (0.8-2.0); ANION GAP 12.2 mmol/L (8-16); CALCIUM 8.5 mg/dL (8.4-10.2); CREATININE, SERUM 0.55 mg/dL (0.72-1.25); POTASSIUM 4.2 mmol/L (3.5-5.1)
[2022-07-04] MEDS: TRAZODONE HCL 50 MG TAB PO SCH (20:37)
[2022-07-05] VITALS (8 sets, daily range): BP systolic 107–132; BP diastolic 71–94
[2022-07-05] MEDS: Morphine 4mg INJECTION 4 MG/ML INJ IV PRN ×5 (06:02→22:23)
[2022-07-05] MEDS: AMLODIPINE BESYLATE 5 MG TAB PO SCH ×2 (09:44→16:44)
[2022-07-05] MEDS: APIXABAN 5 MG TABLET PO SCH ×2 (09:44→16:43)
[2022-07-05] MEDS: SENNOSIDES 8.6 MG TAB PO SCH (09:44)
[2022-07-05] MEDS: METOPROLOL TARTRATE 25 MG TAB PO SCH ×2 (09:44→16:43)
[2022-07-05] MEDS: DOCUSATE SODIUM 100 MG CAP PO SCH (09:44)
[2022-07-05 10:55] LABS: BASOPHILS % 0.3 % (0.0-1.0); EOSINOPHILS # (AUTO) 0.2 (0.0-0.4); HEMATOCRIT 36.3 % (38.2-49.6); HEMOGLOBIN 11.2 g/dL (14.0-18.0); LYMPHOCYTES # (AUTO) 1.7 (1.0-3.2); LYMPHOCYTES % 28.5 % (18.0-39.1); MEAN CORPUSCULAR HEMOGLOBIN 28.9 pg (28-32); MEAN CORPUSCULAR HGB CONC 30.9 g/dL (31-35); MEAN CORPUSCULAR VOLUME 93.6 fL (81-99); MONOCYTES # (AUTO) 0.3 (0.2-0.8); MONOCYTES % 4.4 % (4.4-11.3); NEUTROPHILS # (AUTO) 3.8 (2.1-6.9); NEUTROPHILS % 63.6 % (38.7-80.0); PLATELET COUNT 352 x10e3/uL (140-360); RED BLOOD COUNT 3.88 x10e6/uL (4.3-5.7); RED CELL DISTRIBUTION WIDTH 12.3 % (11.7-14.4)
[2022-07-05 12:33] LABS: ALBUMIN 3.2 g/dL (3.5-5.0); ALBUMIN/GLOBULIN RATIO 0.8 (0.8-2.0); ANION GAP 15.2 mmol/L (8-16); CREATININE, SERUM 0.52 mg/dL (0.72-1.25); MAGNESIUM 1.8 MG/DL (1.3-2.1); POTASSIUM 4.2 mmol/L (3.5-5.1)
[2022-07-05] MEDS: ONDANSETRON HCL INJ 2MG/ML 2ML 2 MG/ML VIAL IV PRN ×2 (14:05→22:23)
[2022-07-05] MEDS: TRAZODONE HCL 50 MG TAB PO SCH (20:42)
[2022-07-06] VITALS: BP 106/92
[2022-07-06 04:00] VITALS: BP 83/68
[2022-07-06 06:30] VITALS: BP 94/60
[2022-07-06 07:25] LABS: BASOPHILS % 0.2 % (0.0-1.0); EOSINOPHILS # (AUTO) 0.2 (0.0-0.4); EOSINOPHILS % 3.6 % (0.0-6.0); HEMATOCRIT 35.9 % (38.2-49.6); LYMPHOCYTES # (AUTO) 1.3 (1.0-3.2); LYMPHOCYTES % 25.9 % (18.0-39.1); MEAN CORPUSCULAR HEMOGLOBIN 28.9 pg (28-32); MEAN CORPUSCULAR HGB CONC 30.6 g/dL (31-35); MEAN CORPUSCULAR VOLUME 94.5 fL (81-99); MONOCYTES # (AUTO) 0.3 (0.2-0.8); MONOCYTES % 6.6 % (4.4-11.3); NEUTROPHILS # (AUTO) 3.2 (2.1-6.9); NEUTROPHILS % 63.5 % (38.7-80.0); PLATELET COUNT 381 x10e3/uL (140-360); RED CELL DISTRIBUTION WIDTH 12.3 % (11.7-14.4)
[2022-07-06 08:27] LABS: CALCIUM 8.6 mg/dL (8.4-10.2); CREATININE, SERUM 0.56 mg/dL (0.72-1.25); MAGNESIUM 2.1 MG/DL (1.3-2.1)
[2022-07-06 08:47] VITALS: BP 106/60
[2022-07-06] MEDS ORDERED: CIPRO500 MG PO (08:54)
[2022-07-06] MEDS ORDERED: HIPREX1 GM PO (08:54)
[2022-07-06] MEDS: METOPROLOL TARTRATE 25 MG TAB PO SCH (09:00)
[2022-07-06] MEDS: AMLODIPINE BESYLATE 5 MG TAB PO SCH (09:00)
[2022-07-06] MEDS: APIXABAN 5 MG TABLET PO SCH (09:23)
[2022-07-06] MEDS: SENNOSIDES 8.6 MG TAB PO SCH (09:23)
[2022-07-06] MEDS: Morphine 4mg INJECTION 4 MG/ML INJ IV PRN (09:23)
[2022-07-06] MEDS: DOCUSATE SODIUM 100 MG CAP PO SCH (09:23)
[2022-07-06 09:40] VITALS: BP 106/60
[2022-07-06 11:37] VITALS: BP 92/71
[2022-07-06] MEDS ORDERED: ONDANSETRON HCL 4 MG ORAL DISINTEGRATING TAB PO PRN (12:30)
[2022-07-06] MEDS ORDERED: HEPARIN 500 UNITS/5ML MDV INJ ONE (15:00)
== END 2022-07-06 15:17 | disposition home or self-care (01) | DRG 698 ==
LOC: ER 14:06 → ERHOLD 17:13 → MED/SURG3 20:42 → OBSVTOIN 07-03 17:32
PROVIDERS: ADMIT Internal Medicine; ATTEND Internal Medicine
PROC: 8E0ZXY6 Isolation (ICD-10-PCS; principal; 2022-07-03)
DX: T83.510A Infection and inflammatory reaction due to cystostomy catheter, initial encounter (principal); G82.50 Quadriplegia, unspecified; U07.1 COVID-19; Z16.12 Extended spectrum beta lactamase (ESBL) resistance; E46 Unspecified protein-calorie malnutrition; Z68.1 Body mass index [BMI] 19.9 or less, adult; J96.10 Chronic respiratory failure, unspecified whether with hypoxia or hypercapnia; Z16.24 Resistance to multiple antibiotics; Y73.1 Therapeutic (nonsurgical) and rehabilitative gastroenterology and urology devices associated with adverse incidents; N30.91 Cystitis, unspecified with hematuria; Z93.0 Tracheostomy status; B96.4 Proteus (mirabilis) (morganii) as the cause of diseases classified elsewhere; B96.1 Klebsiella pneumoniae [K. pneumoniae] as the cause of diseases classified elsewhere; B96.5 Pseudomonas (aeruginosa) (mallei) (pseudomallei) as the cause of diseases classified elsewhere; E86.0 Dehydration; Z74.01 Bed confinement status; N31.9 Neuromuscular dysfunction of bladder, unspecified; Z93.3 Colostomy status; N30.90 Cystitis, unspecified without hematuria; D64.9 Anemia, unspecified; E11.9 Type 2 diabetes mellitus without complications; F41.9 Anxiety disorder, unspecified; I10 Essential (primary) hypertension; Z88.8 Allergy status to other drugs, medicaments and biological substances; Z86.19 Personal history of other infectious and parasitic diseases
CPT/HCPCS: 36415; 71045; 80048; 80053; 81001; 82948; 83605; 83735; 85025; 85610; 85730; 87040; 87086; 87186; 94799; 99251; 99284; G0378; J2185; J2270; J2405; J2543; J3370; J7030; J7050

== ENCOUNTER 2022-08-05 12:21 | Emergency (ER) | payer MEDICARE, OTHER ==
[~2022-08-05] VITALS: Ht 322.6 cm; Wt 29.0 kg
[~2022-08-05 12:21] MED LIST changes: +HIPREX1 GM PO
[2022-08-05] MEDS ORDERED: SODIUM CHLORIDE 0.9% 1000ML 1,000 ML IV STA (12:56)
[2022-08-05 13:11] LABS: BASOPHILS % 0.3 % (0.0-1.0); EOSINOPHILS # (AUTO) 0.1 (0.0-0.4); EOSINOPHILS % 1.9 % (0.0-6.0); HEMATOCRIT 38.9 % (38.2-49.6); HEMOGLOBIN 12.1 g/dL (14.0-18.0); LYMPHOCYTES # (AUTO) 1.4 (1.0-3.2); LYMPHOCYTES % 24.3 % (18.0-39.1); MEAN CORPUSCULAR HEMOGLOBIN 29.1 pg (28-32); MEAN CORPUSCULAR HGB CONC 31.1 g/dL (31-35); MEAN CORPUSCULAR VOLUME 93.5 fL (81-99); MONOCYTES # (AUTO) 0.3 (0.2-0.8); MONOCYTES % 4.5 % (4.4-11.3); NEUTROPHILS % 68.7 % (38.7-80.0); PLATELET COUNT 361 x10e3/uL (140-360); RED BLOOD COUNT 4.16 x10e6/uL (4.3-5.7); RED CELL DISTRIBUTION WIDTH 12.9 % (11.7-14.4)
[2022-08-05 13:27] LABS: ALANINE AMINOTRANSFERASE 10 IU/L (0-55); ALBUMIN 3.9 g/dL (3.5-5.0); ALBUMIN/GLOBULIN RATIO 1.1 (0.8-2.0); ALKALINE PHOSPHATASE 116 IU/L (40-150); ANION GAP 12.5 mmol/L (8-16); BLOOD UREA NITROGEN 12 mg/dL (7-26); BUN/CREATININE RATIO 22 (6-25); CARBON DIOXIDE 25 mmol/L (22-29); CHLORIDE 107 mmol/L (98-107); CREATINE KINASE 69 IU/L (30-200); CREATININE, SERUM 0.55 mg/dL (0.72-1.25); GLUCOSE 99 mg/dL (74-118); LIPASE 44 U/L (8-78); POTASSIUM 3.5 mmol/L (3.5-5.1); SODIUM 141 mmol/L (136-145)
[2022-08-05 14:00] LABS: CLARITY,URINE TURBID (CLEAR); COLOR,URINE YELLOW (YELLOW)
[2022-08-05 14:01] LABS: LEUKOCYTE ESTERASE ,URINE MODERATE (NEGATIVE); NITRITE,URINE NEGATIVE (NEGATIVE); PROTEIN,URINE DIPSTICK 1+ (NEGATIVE)
[2022-08-05 14:03] LABS: KETONES,URINE NEGATIVE (NEGATIVE); URINE UROBILINOGEN 0.2 mg/dL (0.2 - 1)
[2022-08-05 14:04] LABS: BACTERIA,URINE FEW /HPF; WBC,URINE (MAN) 21-50 /HPF (0-5)
[2022-08-05] MEDS ORDERED: CEFDINIR 300 MG CAP PO ONE (14:15)
[2022-08-05 14:45] LABS: CLARITY,URINE TURBID (CLEAR); COLOR,URINE YELLOW (YELLOW); KETONES,URINE NEGATIVE (NEGATIVE); LEUKOCYTE ESTERASE ,URINE LARGE (NEGATIVE); NITRITE,URINE NEGATIVE (NEGATIVE); PROTEIN,URINE DIPSTICK 2+ (NEGATIVE); URINE UROBILINOGEN 0.2 mg/dL (0.2 - 1)
[2022-08-05] MEDS ORDERED: Morphine 4mg INJECTION 4 MG/ML INJ IV ONE (14:45)
[2022-08-05] MEDS ORDERED: IOPAMIDOL 370 MG/ML 100 ML INFUS..BTL INJ ONE (14:48)
[2022-08-05 15:04] LABS: BACTERIA,URINE MANY /HPF; RBC,URINE 0-5 /HPF (0-5); TRIPLE PHOSPHATE CRYSTAL,UR MANY (FEW); WBC,URINE (MAN) 0-5 /HPF (0-5)
== END 2022-08-05 18:08 | disposition home or self-care (01) ==
LOC: ER 12:24
DX: R10.32 Left lower quadrant pain (principal); G82.50 Quadriplegia, unspecified; I10 Essential (primary) hypertension; R53.1 Weakness; N39.0 Urinary tract infection, site not specified; F41.9 Anxiety disorder, unspecified; Z20.822 Contact with and (suspected) exposure to COVID-19; Z93.0 Tracheostomy status; Z93.3 Colostomy status; Z88.8 Allergy status to other drugs, medicaments and biological substances; Z79.02 Long term (current) use of antithrombotics/antiplatelets; Z79.899 Other long term (current) drug therapy
CPT/HCPCS: 0223U; 36415; 71045; 74176; 80053; 81001; 82550; 82553; 83605; 83690; 84484; 85025; 87086; 87186; 93005; 94640; 94799; 99284; J2270; J7030; Q9967

== ENCOUNTER 2022-09-29 16:46 | Inpatient (IN) | payer MEDICARE, OTHER ==
[~2022-09-29] VITALS: Ht 170.2 cm; Wt 65.0 kg
[~2022-09-29 16:46] MED LIST changes: +CEFUROXIME250 MG PO; +DITROPAN XL5 MG PO; +HYDROCODON-ACE1 EA11 PO; +NORVASC5 MG PO; +SENOKOT8.6 MG PO
[2022-09-29] MEDS ORDERED: SODIUM CHLORIDE 0.9% 1000ML 1,000 ML IV ONE (17:15)
[2022-09-29] MEDS ORDERED: SODIUM CHLORIDE FLUSH 10 ML SYR INJ PRN (18:00)
[2022-09-29] MEDS ORDERED: ONDANSETRON HCL INJ 2MG/ML 2ML 2 MG/ML VIAL IV PRN (18:00)
[2022-09-29] MEDS ORDERED: GENTAMICIN SULFATE 200 MG in SODIUM CHLORIDE 0.9% 100 ML IV ONE (18:30)
[2022-09-29 18:45] LABS: BASOPHILS % 0.3 % (0.0-1.0); EOSINOPHILS # (AUTO) 0.3 (0.0-0.4); EOSINOPHILS % 3.1 % (0.0-6.0); HEMATOCRIT 41.6 % (38.2-49.6); HEMOGLOBIN 12.7 g/dL (14.0-18.0); LYMPHOCYTES # (AUTO) 2.4 (1.0-3.2); LYMPHOCYTES % 24.8 % (18.0-39.1); MEAN CORPUSCULAR HEMOGLOBIN 29.3 pg (28-32); MEAN CORPUSCULAR HGB CONC 30.5 g/dL (31-35); MEAN CORPUSCULAR VOLUME 95.9 fL (81-99); MONOCYTES # (AUTO) 0.5 (0.2-0.8); MONOCYTES % 5.3 % (4.4-11.3); NEUTROPHILS # (AUTO) 6.3 (2.1-6.9); NEUTROPHILS % 66.3 % (38.7-80.0); PLATELET COUNT 449 x10e3/uL (140-360); RED BLOOD COUNT 4.34 x10e6/uL (4.3-5.7); RED CELL DISTRIBUTION WIDTH 12.7 % (11.7-14.4)
[2022-09-29 18:53] LABS: CLARITY,URINE TURBID (CLEAR); COLOR,URINE YELLOW (YELLOW); KETONES,URINE NEGATIVE (NEGATIVE); LEUKOCYTE ESTERASE ,URINE SMALL (NEGATIVE); NITRITE,URINE NEGATIVE (NEGATIVE); PROTEIN,URINE DIPSTICK >=300 (NEGATIVE); URINE UROBILINOGEN 0.2 mg/dL (0.2 - 1)
[2022-09-29] MEDS: MEROPENEM 1 GM in SODIUM CHLORIDE 0.9% 100 ML IV SCH (18:55)
[2022-09-29 19:05] LABS: ALANINE AMINOTRANSFERASE 10 IU/L (0-55); ALBUMIN 3.6 g/dL (3.5-5.0); ALBUMIN/GLOBULIN RATIO 0.7 (0.8-2.0); ALKALINE PHOSPHATASE 116 IU/L (40-150); ANION GAP 17.9 mmol/L (8-16); BLOOD UREA NITROGEN 35 mg/dL (7-26); BUN/CREATININE RATIO 51 (6-25); CALCIUM 10.1 mg/dL (8.4-10.2); CARBON DIOXIDE 23 mmol/L (22-29); CHLORIDE 105 mmol/L (98-107); CREATININE, SERUM 0.68 mg/dL (0.72-1.25); GLUCOSE 83 mg/dL (74-118); POTASSIUM 3.9 mmol/L (3.5-5.1); SODIUM 142 mmol/L (136-145)
[2022-09-29 19:17] LABS: EPITHELIAL CELLS,URINE FEW /LPF; WBC,URINE (MAN) 0-5 /HPF (0-5)
[2022-09-29 19:18] LABS: BACTERIA,URINE MANY /HPF; TRIPLE PHOSPHATE CRYSTAL,UR MANY (FEW)
[2022-09-29] MEDS ORDERED: HYDROCODONE/APAP 5MG-325MG TAB PO PRN (19:30)
[2022-09-29] MEDS: SODIUM CHLORIDE 0.9% 1000ML 1,000 ML IV SCH (20:45)
[2022-09-29] MEDS: TRAZODONE HCL 50 MG TAB PO SCH (20:47)
[2022-09-29 21:01] VITALS: BP 119/88
[2022-09-29] MEDS: Morphine 4mg INJECTION 4 MG/ML INJ IV PRN (21:38)
[2022-09-29 22:59] VITALS: BP 119/88
[2022-09-29 23:10] VITALS: BP 119/88
[2022-09-30] VITALS (9 sets, daily range): BP systolic 67–129; BP diastolic 43–74
[2022-09-30] MEDS: MEROPENEM 1 GM in SODIUM CHLORIDE 0.9% 100 ML IV SCH ×3 (01:00→16:38)
[2022-09-30] MEDS: SODIUM CHLORIDE 0.9% 1000ML 1,000 ML IV SCH ×2 (05:41→21:03)
[2022-09-30 06:12] LABS: BASOPHILS % 0.3 % (0.0-1.0); EOSINOPHILS # (AUTO) 0.3 (0.0-0.4); EOSINOPHILS % 3.7 % (0.0-6.0); HEMATOCRIT 31.6 % (38.2-49.6); HEMOGLOBIN 9.4 g/dL (14.0-18.0); LYMPHOCYTES # (AUTO) 1.6 (1.0-3.2); LYMPHOCYTES % 22.5 % (18.0-39.1); MEAN CORPUSCULAR HGB CONC 29.7 g/dL (31-35); MEAN CORPUSCULAR VOLUME 97.5 fL (81-99); MONOCYTES # (AUTO) 0.5 (0.2-0.8); MONOCYTES % 6.6 % (4.4-11.3); NEUTROPHILS # (AUTO) 4.6 (2.1-6.9); NEUTROPHILS % 66.6 % (38.7-80.0); PLATELET COUNT 316 x10e3/uL (140-360); RED BLOOD COUNT 3.24 x10e6/uL (4.3-5.7); RED CELL DISTRIBUTION WIDTH 12.7 % (11.7-14.4)
[2022-09-30 06:53] LABS: CALCIUM 8.4 mg/dL (8.4-10.2); CREATININE, SERUM 0.6 mg/dL (0.72-1.25)
[2022-09-30] MEDS: METOPROLOL SUCCINATE 25 MG TAB XL PO SCH ×2 (08:34→16:05)
[2022-09-30] MEDS: SENNOSIDES 8.6 MG TAB PO SCH (08:34)
[2022-09-30] MEDS: APIXABAN 5 MG TABLET PO SCH ×2 (08:34→16:39)
[2022-09-30] MEDS: OXYBUTYNIN CHLORIDE XL 5 MG TAB PO SCH (08:34)
[2022-09-30] MEDS: Morphine 4mg INJECTION 4 MG/ML INJ IV PRN ×4 (08:44→21:03)
[2022-09-30] MEDS: TRAZODONE HCL 50 MG TAB PO SCH (21:03)
[2022-10-01] VITALS (8 sets, daily range): BP systolic 103–144; BP diastolic 67–110
[2022-10-01] MEDS: Morphine 4mg INJECTION 4 MG/ML INJ IV PRN ×6 (00:55→20:31)
[2022-10-01] MEDS: MEROPENEM 1 GM in SODIUM CHLORIDE 0.9% 100 ML IV SCH ×3 (00:55→16:56)
[2022-10-01] MEDS: SODIUM CHLORIDE 0.9% 1000ML 1,000 ML IV SCH ×3 (01:30→20:30)
[2022-10-01] MEDS: APIXABAN 5 MG TABLET PO SCH ×2 (09:06→16:56)
[2022-10-01] MEDS: OXYBUTYNIN CHLORIDE XL 5 MG TAB PO SCH (09:06)
[2022-10-01] MEDS: SENNOSIDES 8.6 MG TAB PO SCH (09:06)
[2022-10-01] MEDS: METOPROLOL SUCCINATE 25 MG TAB XL PO SCH ×2 (09:07→16:57)
[2022-10-01] MEDS ORDERED: Morphine 2mg Syringe 2 MG/ML SYR ONE (13:52)
[2022-10-01] MEDS: TRAZODONE HCL 50 MG TAB PO SCH (20:30)
[2022-10-02] VITALS (8 sets, daily range): BP systolic 112–149; BP diastolic 71–97
[2022-10-02] MEDS: Morphine 4mg INJECTION 4 MG/ML INJ IV PRN ×6 (00:25→22:43)
[2022-10-02] MEDS: MEROPENEM 1 GM in SODIUM CHLORIDE 0.9% 100 ML IV SCH ×3 (00:25→17:02)
[2022-10-02] MEDS: SODIUM CHLORIDE 0.9% 1000ML 1,000 ML IV SCH ×2 (04:58→17:03)
[2022-10-02] MEDS: SENNOSIDES 8.6 MG TAB PO SCH (09:12)
[2022-10-02] MEDS: METOPROLOL SUCCINATE 25 MG TAB XL PO SCH ×2 (09:12→17:02)
[2022-10-02] MEDS: APIXABAN 5 MG TABLET PO SCH ×2 (09:13→17:01)
[2022-10-02] MEDS: OXYBUTYNIN CHLORIDE XL 5 MG TAB PO SCH (09:13)
[2022-10-02] MEDS ORDERED: ONDANSETRON HCL 4 MG ORAL DISINTEGRATING TAB PO PRN (15:00)
[2022-10-02] MEDS: TRAZODONE HCL 50 MG TAB PO SCH (21:12)
[2022-10-03] VITALS (7 sets, daily range): BP systolic 112–151; BP diastolic 72–108
[2022-10-03] MEDS: SODIUM CHLORIDE 0.9% 1000ML 1,000 ML IV SCH ×3 (00:21→14:13)
[2022-10-03] MEDS: MEROPENEM 1 GM in SODIUM CHLORIDE 0.9% 100 ML IV SCH ×3 (01:30→16:53)
[2022-10-03] MEDS: Morphine 4mg INJECTION 4 MG/ML INJ IV PRN ×5 (05:54→22:43)
[2022-10-03] MEDS: METOPROLOL SUCCINATE 25 MG TAB XL PO SCH ×2 (09:01→16:53)
[2022-10-03] MEDS: OXYBUTYNIN CHLORIDE XL 5 MG TAB PO SCH (09:01)
[2022-10-03] MEDS: SENNOSIDES 8.6 MG TAB PO SCH (09:01)
[2022-10-03] MEDS: APIXABAN 5 MG TABLET PO SCH ×2 (09:01→16:52)
[2022-10-03] MEDS: LINEZOLID 600 MG TAB PO SCH (16:52)
[2022-10-03] MEDS: TRAZODONE HCL 50 MG TAB PO SCH (20:35)
[2022-10-04] VITALS (7 sets, daily range): BP systolic 134–161; BP diastolic 81–110
[2022-10-04] MEDS: MEROPENEM 1 GM in SODIUM CHLORIDE 0.9% 100 ML IV SCH ×3 (00:19→17:08)
[2022-10-04] MEDS: Morphine 4mg INJECTION 4 MG/ML INJ IV PRN ×5 (05:19→21:56)
[2022-10-04] MEDS: APIXABAN 5 MG TABLET PO SCH ×2 (08:30→17:08)
[2022-10-04] MEDS: OXYBUTYNIN CHLORIDE XL 5 MG TAB PO SCH (08:30)
[2022-10-04] MEDS: LINEZOLID 600 MG TAB PO SCH ×2 (08:31→17:08)
[2022-10-04] MEDS: METOPROLOL SUCCINATE 25 MG TAB XL PO SCH ×2 (08:31→17:08)
[2022-10-04] MEDS: SENNOSIDES 8.6 MG TAB PO SCH (08:31)
[2022-10-04] MEDS: SODIUM CHLORIDE 0.9% 1000ML 1,000 ML IV SCH (13:30)
[2022-10-04] MEDS: TRAZODONE HCL 50 MG TAB PO SCH (20:42)
[2022-10-05] VITALS (8 sets, daily range): BP systolic 129–157; BP diastolic 82–105
[2022-10-05] MEDS: MEROPENEM 1 GM in SODIUM CHLORIDE 0.9% 100 ML IV SCH ×3 (00:26→18:06)
[2022-10-05] MEDS: SODIUM CHLORIDE 0.9% 1000ML 1,000 ML IV SCH ×3 (00:27→16:44)
[2022-10-05] MEDS: Morphine 4mg INJECTION 4 MG/ML INJ IV PRN ×5 (02:07→21:58)
[2022-10-05] MEDS: OXYBUTYNIN CHLORIDE XL 5 MG TAB PO SCH (09:23)
[2022-10-05] MEDS: SENNOSIDES 8.6 MG TAB PO SCH (09:23)
[2022-10-05] MEDS: METOPROLOL SUCCINATE 25 MG TAB XL PO SCH ×2 (09:24→18:05)
[2022-10-05] MEDS: APIXABAN 5 MG TABLET PO SCH ×2 (09:24→18:05)
[2022-10-05] MEDS: LINEZOLID 600 MG TAB PO SCH ×2 (09:25→18:04)
[2022-10-05] MEDS: IRON SUCROSE 100 MG in SODIUM CHLORIDE 0.9% 100 ML IV SCH (12:52)
[2022-10-05] MEDS: TRAZODONE HCL 50 MG TAB PO SCH (19:59)
[2022-10-06] VITALS (9 sets, daily range): BP systolic 140–164; BP diastolic 88–115
[2022-10-06] MEDS: MEROPENEM 1 GM in SODIUM CHLORIDE 0.9% 100 ML IV SCH ×3 (00:50→16:29)
[2022-10-06] MEDS: Morphine 4mg INJECTION 4 MG/ML INJ IV PRN ×6 (02:14→20:55)
[2022-10-06] MEDS: SODIUM CHLORIDE 0.9% 1000ML 1,000 ML IV SCH ×2 (05:40→12:00)
[2022-10-06] MEDS: PANTOPRAZOLE SOD 40 MG TABEC PO SCH (05:53)
[2022-10-06 08:32] LABS: BASOPHILS % 0.2 % (0.0-1.0); EOSINOPHILS # (AUTO) 0.3 (0.0-0.4); EOSINOPHILS % 4.3 % (0.0-6.0); HEMATOCRIT 31.8 % (38.2-49.6); HEMOGLOBIN 9.9 g/dL (14.0-18.0); LYMPHOCYTES # (AUTO) 1.1 (1.0-3.2); LYMPHOCYTES % 18.6 % (18.0-39.1); MEAN CORPUSCULAR HGB CONC 31.1 g/dL (31-35); MEAN CORPUSCULAR VOLUME 93.3 fL (81-99); MONOCYTES # (AUTO) 0.4 (0.2-0.8); MONOCYTES % 6.8 % (4.4-11.3); NEUTROPHILS # (AUTO) 4.2 (2.1-6.9); NEUTROPHILS % 69.8 % (38.7-80.0); PLATELET COUNT 341 x10e3/uL (140-360); RED BLOOD COUNT 3.41 x10e6/uL (4.3-5.7); RED CELL DISTRIBUTION WIDTH 11.9 % (11.7-14.4)
[2022-10-06] MEDS: IRON SUCROSE 100 MG in SODIUM CHLORIDE 0.9% 100 ML IV SCH (08:39)
[2022-10-06] MEDS: LINEZOLID 600 MG TAB PO SCH ×2 (08:40→16:28)
[2022-10-06] MEDS: METOPROLOL SUCCINATE 25 MG TAB XL PO SCH ×2 (08:40→16:29)
[2022-10-06] MEDS: OXYBUTYNIN CHLORIDE XL 5 MG TAB PO SCH (08:40)
[2022-10-06] MEDS: APIXABAN 5 MG TABLET PO SCH ×2 (08:40→16:29)
[2022-10-06] MEDS: SENNOSIDES 8.6 MG TAB PO SCH (08:41)
[2022-10-06 09:00] LABS: ANION GAP 12.2 mmol/L (8-16); CALCIUM 8.5 mg/dL (8.4-10.2); CREATININE, SERUM 0.47 mg/dL (0.72-1.25); POTASSIUM 4.2 mmol/L (3.5-5.1)
[2022-10-06 09:39] LABS: MAGNESIUM 1.4 MG/DL (1.3-2.1); PHOSPHORUS 2.8 MG/DL (2.3-4.7)
[2022-10-06 09:59] LABS: THYROID STIMULATING HORMONE 0.654 uIU/mL (0.350-4.940)
[2022-10-06] MEDS ORDERED: HYDROCODONE/APAP 5MG-325MG TAB PO PRN (19:45)
[2022-10-06] MEDS: TRAZODONE HCL 50 MG TAB PO SCH (20:54)
[2022-10-07] VITALS: BP 163/98
[2022-10-07] MEDS: MEROPENEM 1 GM in SODIUM CHLORIDE 0.9% 100 ML IV SCH ×3 (02:18→16:14)
[2022-10-07] MEDS: Morphine 4mg INJECTION 4 MG/ML INJ IV PRN ×4 (02:19→16:13)
[2022-10-07 04:00] VITALS: BP 144/94
[2022-10-07] MEDS: PANTOPRAZOLE SOD 40 MG TABEC PO SCH (06:00)
[2022-10-07 08:34] VITALS: BP 155/112
[2022-10-07] MEDS: IRON SUCROSE 100 MG in SODIUM CHLORIDE 0.9% 100 ML IV SCH (09:14)
[2022-10-07 09:18] VITALS: BP 155/112
[2022-10-07] MEDS: APIXABAN 5 MG TABLET PO SCH ×2 (09:18→16:14)
[2022-10-07] MEDS: OXYBUTYNIN CHLORIDE XL 5 MG TAB PO SCH (09:19)
[2022-10-07] MEDS: SENNOSIDES 8.6 MG TAB PO SCH (09:20)
[2022-10-07] MEDS: LINEZOLID 600 MG TAB PO SCH ×2 (09:20→16:14)
[2022-10-07] MEDS: METOPROLOL SUCCINATE 25 MG TAB XL PO SCH ×2 (09:20→16:15)
[2022-10-07] MEDS: MAGNESIUM OXIDE 400 MG TAB PO SCH ×2 (09:25→16:14)
[2022-10-07 11:46] VITALS: BP 157/105
[2022-10-07 16:40] VITALS: BP 176/111
== END 2022-10-07 18:31 | DRG 698 ==
LOC: ER 16:50 → ERHOLD 17:48 → MED/SURG3 19:52
PROVIDERS: ADMIT Internal Medicine; ATTEND Internal Medicine
DX: T83.518A Infection and inflammatory reaction due to other urinary catheter, initial encounter (principal); A41.81 Sepsis due to Enterococcus; L89.153 Pressure ulcer of sacral region, stage 3; G82.50 Quadriplegia, unspecified; R65.20 Severe sepsis without septic shock; D68.9 Coagulation defect, unspecified; Z16.12 Extended spectrum beta lactamase (ESBL) resistance; Z16.22 Resistance to vancomycin related antibiotics; J96.10 Chronic respiratory failure, unspecified whether with hypoxia or hypercapnia; M24.59 Contracture, other specified joint; E87.8 Other disorders of electrolyte and fluid balance, not elsewhere classified; Z88.8 Allergy status to other drugs, medicaments and biological substances; Z93.3 Colostomy status; Z93.0 Tracheostomy status; Z74.01 Bed confinement status; N31.9 Neuromuscular dysfunction of bladder, unspecified; N39.498 Other specified urinary incontinence; D64.9 Anemia, unspecified; B95.2 Enterococcus as the cause of diseases classified elsewhere
CPT/HCPCS: 0223U; 36415; 80048; 80053; 81001; 82607; 82746; 83605; 83735; 84100; 84443; 85025; 87040; 87086; 87186; 94799; 96360; 99252; 99284; J1580; J1756; J2185; J2270; J2405; J7030; J7050

== ENCOUNTER 2022-11-19 15:48 | Inpatient (IN) | payer MEDICARE, OTHER ==
[~2022-11-19] VITALS: Ht 170.2 cm; Wt 43.1 kg
[2022-11-19] MEDS ORDERED: MEROPENEM 1 GM in SODIUM CHLORIDE 0.9% 100 ML IV ONE (18:15)
[2022-11-19] MEDS ORDERED: Vancomycin IV 1 GM in SODIUM CHLORIDE 0.9% 250ML 250 ML IV ONE (18:15)
[2022-11-19 18:50] LABS: BASOPHILS % 0.5 % (0.0-1.0); EOSINOPHILS # (AUTO) 0.1 (0.0-0.4); EOSINOPHILS % 2.3 % (0.0-6.0); HEMOGLOBIN 9.7 g/dL (14.0-18.0); LYMPHOCYTES % 32.6 % (18.0-39.1); MEAN CORPUSCULAR HEMOGLOBIN 28.8 pg (28-32); MEAN CORPUSCULAR HGB CONC 31.3 g/dL (31-35); MONOCYTES # (AUTO) 0.3 (0.2-0.8); NEUTROPHILS # (AUTO) 3.6 (2.1-6.9); NEUTROPHILS % 59.1 % (38.7-80.0); PLATELET COUNT 301 x10e3/uL (140-360); RED BLOOD COUNT 3.37 x10e6/uL (4.3-5.7); RED CELL DISTRIBUTION WIDTH 14.5 % (11.7-14.4)
[2022-11-19 18:50] LABS: CLARITY,URINE CLOUDY (CLEAR); COLOR,URINE YELLOW (YELLOW); KETONES,URINE NEGATIVE (NEGATIVE); LEUKOCYTE ESTERASE ,URINE SMALL (NEGATIVE); NITRITE,URINE POSITIVE (NEGATIVE); PROTEIN,URINE DIPSTICK 2+ (NEGATIVE); URINE UROBILINOGEN 0.2 mg/dL (0.2 - 1)
[2022-11-19 19:00] LABS: BACTERIA,URINE MANY /HPF; TRIPLE PHOSPHATE CRYSTAL,UR MODERATE (FEW)
[2022-11-19 19:01] LABS: AMORPHOUS SEDIMENT,URINE MODERATE (FEW)
[2022-11-19 19:17] LABS: ALANINE AMINOTRANSFERASE 8 IU/L (0-55); ALBUMIN 3.6 g/dL (3.5-5.0); ALBUMIN/GLOBULIN RATIO 0.8 (0.8-2.0); ALKALINE PHOSPHATASE 124 IU/L (40-150); ANION GAP 14.8 mmol/L (8-16); BLOOD UREA NITROGEN 21 mg/dL (7-26); BUN/CREATININE RATIO 40 (6-25); CALCIUM 9.1 mg/dL (8.4-10.2); CARBON DIOXIDE 23 mmol/L (22-29); CHLORIDE 109 mmol/L (98-107); CREATINE KINASE 59 IU/L (30-200); CREATININE, SERUM 0.52 mg/dL (0.72-1.25); GLUCOSE 79 mg/dL (74-118); POTASSIUM 3.8 mmol/L (3.5-5.1); SODIUM 143 mmol/L (136-145)
[2022-11-19] MEDS: SODIUM CHLORIDE 0.9% 1000ML 1,000 ML IV SCH (19:47)
[2022-11-19] MEDS: ONDANSETRON HCL INJ 2MG/ML 2ML 2 MG/ML VIAL IV PRN (23:05)
[2022-11-19] MEDS: Morphine 4mg INJECTION 4 MG/ML INJ IV PRN (23:06)
[2022-11-19] MEDS ORDERED: RISPERDAL1 MG PO (23:19)
[2022-11-20] VITALS (9 sets, daily range): BP systolic 92–172; BP diastolic 63–118
[2022-11-20] MEDS: SODIUM CHLORIDE 0.9% 1000ML 1,000 ML IV SCH ×2 (03:29→09:36)
[2022-11-20] MEDS: ONDANSETRON HCL INJ 2MG/ML 2ML 2 MG/ML VIAL IV PRN ×4 (03:30→15:51)
[2022-11-20] MEDS: Morphine 4mg INJECTION 4 MG/ML INJ IV PRN ×4 (03:30→15:51)
[2022-11-20] MEDS: AMLODIPINE BESYLATE 5 MG TAB PO SCH (15:50)
[2022-11-20] MEDS: APIXABAN 5 MG TABLET PO SCH (15:50)
[2022-11-20] MEDS: TRAZODONE HCL 50 MG TAB PO SCH (21:11)
[2022-11-20] MEDS: HYDROCODONE/APAP 5MG-325MG TAB PO PRN (21:12)
[2022-11-21] VITALS (7 sets, daily range): BP systolic 103–141; BP diastolic 70–93
[2022-11-21] MEDS: APIXABAN 5 MG TABLET PO SCH ×2 (08:28→16:22)
[2022-11-21] MEDS: OXYBUTYNIN CHLORIDE XL 5 MG TAB PO SCH (08:28)
[2022-11-21] MEDS: RISPERIDONE 1 MG TAB PO SCH (08:28)
[2022-11-21] MEDS: HYDROCODONE/APAP 5MG-325MG TAB PO PRN (08:28)
[2022-11-21] MEDS: METOPROLOL SUCCINATE 50 MG TAB XL PO SCH (08:35)
[2022-11-21] MEDS: SENNOSIDES 8.6 MG TAB PO SCH (08:35)
[2022-11-21] MEDS: AMLODIPINE BESYLATE 5 MG TAB PO SCH ×2 (08:35→16:22)
[2022-11-21] MEDS: COLLAGENASE 5 GM TUBE TP SCH (09:00)
[2022-11-21] MEDS: Morphine 4mg INJECTION 4 MG/ML INJ IV PRN ×3 (12:45→20:30)
[2022-11-21] MEDS: ONDANSETRON HCL INJ 2MG/ML 2ML 2 MG/ML VIAL IV PRN ×2 (12:45→16:27)
[2022-11-21] MEDS: TRAZODONE HCL 50 MG TAB PO SCH (20:30)
[2022-11-22] VITALS (8 sets, daily range): BP systolic 89–129; BP diastolic 57–98
[2022-11-22] MEDS: HYDROCODONE/APAP 5MG-325MG TAB PO PRN ×2 (00:32→20:42)
[2022-11-22] MEDS: Morphine 4mg INJECTION 4 MG/ML INJ IV PRN (03:14)
[2022-11-22] MEDS: OXYBUTYNIN CHLORIDE XL 5 MG TAB PO SCH (08:22)
[2022-11-22] MEDS: APIXABAN 5 MG TABLET PO SCH ×2 (08:23→16:29)
[2022-11-22] MEDS: METOPROLOL SUCCINATE 50 MG TAB XL PO SCH (08:23)
[2022-11-22] MEDS: SENNOSIDES 8.6 MG TAB PO SCH (08:23)
[2022-11-22] MEDS: RISPERIDONE 1 MG TAB PO SCH (08:23)
[2022-11-22] MEDS: AMLODIPINE BESYLATE 5 MG TAB PO SCH (08:26)
[2022-11-22] MEDS: COLLAGENASE 5 GM TUBE TP SCH (13:33)
[2022-11-22] MEDS ORDERED: SODIUM CHLORIDE 0.9% 500ML 500 ML IV ONE (14:15)
[2022-11-22] MEDS ORDERED: TRAMADOL HCL 50 MG TAB PO PRN (14:30)
[2022-11-22] MEDS: TRAZODONE HCL 50 MG TAB PO SCH (20:43)
[2022-11-23] VITALS (9 sets, daily range): BP systolic 91–129; BP diastolic 67–90
[2022-11-23] MEDS: Morphine 4mg INJECTION 4 MG/ML INJ IV PRN ×4 (00:10→17:44)
[2022-11-23 07:25] LABS: BASOPHILS % 0.5 % (0.0-1.0); EOSINOPHILS # (AUTO) 0.1 (0.0-0.4); EOSINOPHILS % 2.3 % (0.0-6.0); HEMATOCRIT 33.5 % (38.2-49.6); HEMOGLOBIN 10.4 g/dL (14.0-18.0); LYMPHOCYTES # (AUTO) 1.5 (1.0-3.2); LYMPHOCYTES % 34.5 % (18.0-39.1); MEAN CORPUSCULAR HEMOGLOBIN 29.1 pg (28-32); MEAN CORPUSCULAR VOLUME 93.6 fL (81-99); MONOCYTES # (AUTO) 0.3 (0.2-0.8); MONOCYTES % 7.5 % (4.4-11.3); NEUTROPHILS # (AUTO) 2.4 (2.1-6.9); NEUTROPHILS % 55.2 % (38.7-80.0); PLATELET COUNT 285 x10e3/uL (140-360); RED BLOOD COUNT 3.58 x10e6/uL (4.3-5.7); RED CELL DISTRIBUTION WIDTH 14.6 % (11.7-14.4)
[2022-11-23 07:41] LABS: ANION GAP 11.1 mmol/L (8-16); CALCIUM 8.3 mg/dL (8.4-10.2); CREATININE, SERUM 0.5 mg/dL (0.72-1.25); POTASSIUM 4.1 mmol/L (3.5-5.1)
[2022-11-23] MEDS: COLLAGENASE 5 GM TUBE TP SCH (09:32)
[2022-11-23] MEDS: RISPERIDONE 1 MG TAB PO SCH (09:32)
[2022-11-23] MEDS: OXYBUTYNIN CHLORIDE XL 5 MG TAB PO SCH (09:32)
[2022-11-23] MEDS: SENNOSIDES 8.6 MG TAB PO SCH (09:32)
[2022-11-23] MEDS: APIXABAN 5 MG TABLET PO SCH ×2 (09:32→17:44)
[2022-11-23] MEDS: TRAZODONE HCL 50 MG TAB PO SCH (20:51)
[2022-11-24] VITALS (7 sets, daily range): BP systolic 92–118; BP diastolic 59–89
[2022-11-24] MEDS: RISPERIDONE 1 MG TAB PO SCH (07:56)
[2022-11-24] MEDS: APIXABAN 5 MG TABLET PO SCH ×2 (07:56→17:56)
[2022-11-24] MEDS: SENNOSIDES 8.6 MG TAB PO SCH (07:56)
[2022-11-24] MEDS: OXYBUTYNIN CHLORIDE XL 5 MG TAB PO SCH (07:56)
[2022-11-24] MEDS: Morphine 4mg INJECTION 4 MG/ML INJ IV PRN ×4 (07:57→20:21)
[2022-11-24] MEDS: COLLAGENASE 5 GM TUBE TP SCH (07:57)
[2022-11-24] MEDS ORDERED: ONDANSETRON HCL 4 MG ORAL DISINTEGRATING TAB PO PRN (10:45)
[2022-11-24] MEDS: TRAZODONE HCL 50 MG TAB PO SCH (20:27)
[2022-11-25] VITALS (8 sets, daily range): BP systolic 108–131; BP diastolic 64–97
[2022-11-25] MEDS: Morphine 4mg INJECTION 4 MG/ML INJ IV PRN ×6 (00:23→20:47)
[2022-11-25] MEDS: APIXABAN 5 MG TABLET PO SCH ×2 (08:35→16:47)
[2022-11-25] MEDS: OXYBUTYNIN CHLORIDE XL 5 MG TAB PO SCH (08:35)
[2022-11-25] MEDS: RISPERIDONE 1 MG TAB PO SCH (08:36)
[2022-11-25] MEDS: SENNOSIDES 8.6 MG TAB PO SCH (08:36)
[2022-11-25] MEDS: COLLAGENASE 5 GM TUBE TP SCH (10:45)
[2022-11-25] MEDS: TRAZODONE HCL 50 MG TAB PO SCH (20:47)
[2022-11-26] VITALS (8 sets, daily range): BP systolic 87–144; BP diastolic 55–95
[2022-11-26] MEDS: Morphine 4mg INJECTION 4 MG/ML INJ IV PRN ×5 (00:39→17:35)
[2022-11-26 05:35] LABS: BASOPHILS % 0.3 % (0.0-1.0); EOSINOPHILS # (AUTO) 0.1 (0.0-0.4); EOSINOPHILS % 3.3 % (0.0-6.0); HEMATOCRIT 33.9 % (38.2-49.6); HEMOGLOBIN 10.5 g/dL (14.0-18.0); LYMPHOCYTES # (AUTO) 1.2 (1.0-3.2); LYMPHOCYTES % 32.8 % (18.0-39.1); MEAN CORPUSCULAR HEMOGLOBIN 28.8 pg (28-32); MEAN CORPUSCULAR VOLUME 92.9 fL (81-99); MONOCYTES # (AUTO) 0.4 (0.2-0.8); MONOCYTES % 11.3 % (4.4-11.3); NEUTROPHILS # (AUTO) 1.9 (2.1-6.9); PLATELET COUNT 304 x10e3/uL (140-360); RED BLOOD COUNT 3.65 x10e6/uL (4.3-5.7); RED CELL DISTRIBUTION WIDTH 13.8 % (11.7-14.4)
[2022-11-26 06:01] LABS: CREATININE, SERUM 0.54 mg/dL (0.72-1.25)
[2022-11-26] MEDS: COLLAGENASE 5 GM TUBE TP SCH (09:00)
[2022-11-26] MEDS: RISPERIDONE 1 MG TAB PO SCH (09:00)
[2022-11-26] MEDS: OXYBUTYNIN CHLORIDE XL 5 MG TAB PO SCH (09:04)
[2022-11-26] MEDS: SENNOSIDES 8.6 MG TAB PO SCH (09:04)
[2022-11-26] MEDS: APIXABAN 5 MG TABLET PO SCH ×2 (09:05→17:35)
[2022-11-26] MEDS: TRAZODONE HCL 50 MG TAB PO SCH (20:32)
[2022-11-27 00:56] VITALS: BP 110/75
[2022-11-27 05:11] VITALS: BP 170/106
[2022-11-27 07:00] VITALS: BP 170/106
[2022-11-27 08:03] VITALS: BP 117/83
[2022-11-27] MEDS: RISPERIDONE 1 MG TAB PO SCH (08:22)
[2022-11-27] MEDS: OXYBUTYNIN CHLORIDE XL 5 MG TAB PO SCH (08:23)
[2022-11-27] MEDS: SENNOSIDES 8.6 MG TAB PO SCH (08:23)
[2022-11-27] MEDS: APIXABAN 5 MG TABLET PO SCH (08:23)
[2022-11-27] MEDS: HYDROCODONE/APAP 5MG-325MG TAB PO PRN (08:24)
[2022-11-27] MEDS ORDERED: HEPARIN 500 UNITS/5ML MDV INJ ONE (11:15)
[2022-11-27 12:01] VITALS: BP 121/91
== END 2022-11-27 12:34 | disposition home or self-care (01) | DRG 871 ==
LOC: ER 16:06 → ERHOLD 19:14 → MED/SURG2 22:10
PROVIDERS: ADMIT Internal Medicine; ATTEND Internal Medicine
DX: A41.9 Sepsis, unspecified organism (principal); G82.50 Quadriplegia, unspecified; N39.0 Urinary tract infection, site not specified; T83.518A Infection and inflammatory reaction due to other urinary catheter, initial encounter; I12.9 Hypertensive chronic kidney disease with stage 1 through stage 4 chronic kidney disease, or unspecified chronic kidney disease; N18.9 Chronic kidney disease, unspecified; G40.909 Epilepsy, unspecified, not intractable, without status epilepticus; D63.1 Anemia in chronic kidney disease; F41.9 Anxiety disorder, unspecified; M54.9 Dorsalgia, unspecified; G89.29 Other chronic pain; K76.9 Liver disease, unspecified; F32.A Depression, unspecified; B96.1 Klebsiella pneumoniae [K. pneumoniae] as the cause of diseases classified elsewhere; Z93.0 Tracheostomy status; Z20.822 Contact with and (suspected) exposure to COVID-19; Z74.01 Bed confinement status; Z93.2 Ileostomy status; Z93.3 Colostomy status
CPT/HCPCS: 0223U; 36415; 71045; 80048; 80053; 81001; 82550; 82553; 84484; 85025; 87040; 87086; 87186; 93005; 94640; 94799; 99252; 99284; J2185; J2270; J2405; J7030; J7040; J7050

== ENCOUNTER 2022-12-03 02:00 | Emergency (ER) | payer MEDICARE, OTHER ==
[~2022-12-03] VITALS: Ht 170.2 cm; Wt 43.1 kg
[~2022-12-03 02:00] MED LIST changes: +RISPERDAL1 MG PO
[2022-12-03] MEDS ORDERED: ONDANSETRON HCL INJ 2MG/ML 2ML 2 MG/ML VIAL IV STA (03:15)
[2022-12-03] MEDS ORDERED: Morphine 4mg INJECTION 4 MG/ML INJ IV ONE (03:15)
[2022-12-03 07:47] VITALS: BP 105/88
== END 2022-12-03 07:30 | disposition home or self-care (01) ==
LOC: ER 02:17
DX: G82.50 Quadriplegia, unspecified (principal); I10 Essential (primary) hypertension; G40.909 Epilepsy, unspecified, not intractable, without status epilepticus; K76.9 Liver disease, unspecified; D64.9 Anemia, unspecified; F41.9 Anxiety disorder, unspecified; M54.9 Dorsalgia, unspecified; G89.29 Other chronic pain; Z93.3 Colostomy status
CPT/HCPCS: 99283; J2270; J2405

== ENCOUNTER 2022-12-03 23:37 | Emergency (ER) | payer MEDICARE, OTHER ==
[~2022-12-03] VITALS: Ht 170.2 cm; Wt 43.1 kg
== END 2022-12-04 01:31 | disposition home or self-care (01) ==
LOC: ER 12-04 00:20
DX: T83.028A Displacement of other urinary catheter, initial encounter (principal); I12.9 Hypertensive chronic kidney disease with stage 1 through stage 4 chronic kidney disease, or unspecified chronic kidney disease; N18.9 Chronic kidney disease, unspecified; G40.909 Epilepsy, unspecified, not intractable, without status epilepticus; D64.9 Anemia, unspecified; G82.50 Quadriplegia, unspecified; F41.9 Anxiety disorder, unspecified; M24.59 Contracture, other specified joint; M54.9 Dorsalgia, unspecified; G89.29 Other chronic pain; Z93.3 Colostomy status
CPT/HCPCS: 99282

== ENCOUNTER 2022-12-17 09:22 | Emergency (ER) | payer MEDICARE, OTHER ==
[~2022-12-17] VITALS: Ht 170.2 cm; Wt 43.1 kg
== END 2022-12-17 15:23 | disposition home or self-care (01) ==
LOC: ER 09:26
DX: Z00.00 Encounter for general adult medical examination without abnormal findings (principal)
CPT/HCPCS: 94799; 99283

== ENCOUNTER → 2022-12-28 | Day surgery (SDC) | payer MEDICARE, OTHER ==
[~2022-12-28] MED LIST changes: +CLINDAMYCIN 300 MG/50 ML IV ONE; +GENTAMICIN 80MG/NS 100 ML 0 ML IV ONE; +LACTATED RINGER'S 0 ML ONE; +PIPERACILLIN/TAZOBACTAM 3.375 GM VIAL ONE
== END | disposition home or self-care (01) ==
LOC: OR 10:33
PROVIDERS: ATTEND Urology
DX: Z43.6 Encounter for attention to other artificial openings of urinary tract (principal); Z53.8 Procedure and treatment not carried out for other reasons; Z93.3 Colostomy status; Z87.440 Personal history of urinary (tract) infections; Z87.898 Personal history of other specified conditions; G95.89 Other specified diseases of spinal cord
CPT/HCPCS: 0223U; 36415; 87086; 87186; J1580; J2543

== ENCOUNTER 2023-02-02 13:45 | Emergency (ER) | payer MEDICARE, OTHER ==
[~2023-02-02] VITALS: Ht 170.2 cm; Wt 43.1 kg
[~2023-02-02 13:45] MED LIST changes: -CLINDAMYCIN 300 MG/50 ML IV ONE; -GENTAMICIN 80MG/NS 100 ML 0 ML IV ONE; -LACTATED RINGER'S 0 ML ONE; -PIPERACILLIN/TAZOBACTAM 3.375 GM VIAL ONE
[2023-02-02 14:02] VITALS: O2SAT 98
== END 2023-02-02 15:20 | disposition home or self-care (01) ==
LOC: ER 13:50
DX: Z46.6 Encounter for fitting and adjustment of urinary device (principal); I10 Essential (primary) hypertension; K76.9 Liver disease, unspecified; G40.909 Epilepsy, unspecified, not intractable, without status epilepticus; D64.9 Anemia, unspecified; F41.9 Anxiety disorder, unspecified; M54.9 Dorsalgia, unspecified; G89.29 Other chronic pain; G82.50 Quadriplegia, unspecified; Z93.3 Colostomy status
CPT/HCPCS: 99282

== ENCOUNTER 2023-03-05 16:36 | Emergency (ER) | payer MEDICARE, OTHER ==
[~2023-03-05] VITALS: Ht 170.2 cm; Wt 43.1 kg
[2023-03-05 17:01] LABS: CLARITY,URINE CLOUDY (CLEAR); COLOR,URINE YELLOW (YELLOW); KETONES,URINE NEGATIVE (NEGATIVE); LEUKOCYTE ESTERASE ,URINE MODERATE (NEGATIVE); NITRITE,URINE NEGATIVE (NEGATIVE); PROTEIN,URINE DIPSTICK NEGATIVE (NEGATIVE); URINE UROBILINOGEN 0.2 mg/dL (0.2 - 1)
[2023-03-05 17:13] LABS: AMORPHOUS SEDIMENT,URINE MANY (FEW); BACTERIA,URINE MODERATE /HPF
[2023-03-05 17:53] LABS: BASOPHILS % 0.3 % (0.0-1.0); EOSINOPHILS # (AUTO) 0.2 (0.0-0.4); EOSINOPHILS % 2.2 % (0.0-6.0); HEMATOCRIT 34.5 % (38.2-49.6); HEMOGLOBIN 12.1 g/dL (14.0-18.0); LYMPHOCYTES # (AUTO) 1.7 (1.0-3.2); LYMPHOCYTES % 25.1 % (18.0-39.1); MEAN CORPUSCULAR HEMOGLOBIN 30.6 pg (28-32); MEAN CORPUSCULAR HGB CONC 35.1 g/dL (31-35); MEAN CORPUSCULAR VOLUME 87.1 fL (81-99); MONOCYTES # (AUTO) 0.4 (0.2-0.8); MONOCYTES % 5.2 % (4.4-11.3); NEUTROPHILS # (AUTO) 4.6 (2.1-6.9); NEUTROPHILS % 66.6 % (38.7-80.0); PLATELET COUNT 323 x10e3/uL (140-360); RED BLOOD COUNT 3.96 x10e6/uL (4.3-5.7); RED CELL DISTRIBUTION WIDTH 12.9 % (11.7-14.4)
[2023-03-05 18:08] LABS: ALBUMIN 3.8 g/dL (3.5-5.0); ANION GAP 14.8 mmol/L (8-16); CALCIUM 9.5 mg/dL (8.4-10.2); CREATININE, SERUM 0.55 mg/dL (0.72-1.25); POTASSIUM 3.8 mmol/L (3.5-5.1)
[2023-03-05 21:30] VITALS: O2SAT 97
[2023-03-05] MEDS ORDERED: HEPARIN SOD (PORCINE) 1000 UNIT/ML SDV ONE (21:42)
== END 2023-03-05 22:04 | disposition home or self-care (01) ==
LOC: ER 16:44
DX: R50.9 Fever, unspecified (principal); R52 Pain, unspecified; G82.50 Quadriplegia, unspecified; I10 Essential (primary) hypertension; D64.9 Anemia, unspecified; G40.909 Epilepsy, unspecified, not intractable, without status epilepticus; F41.9 Anxiety disorder, unspecified
CPT/HCPCS: 36415; 80053; 81001; 83605; 85025; 87086; 87186; 99284; J1644

== ENCOUNTER 2023-09-15 17:45 | Inpatient (IN) | payer MEDICARE ==
[~2023-09-15] VITALS: Ht 170.2 cm; Wt 43.1 kg
[~2023-09-15 17:45] MED LIST changes: +HYDROCODON-ACE1 EAC9 PO
[2023-09-15 19:33] VITALS: BP 164/139; PULSE 72; RESP 18; TEMP 98.9; O2SAT 99
[2023-09-15 20:15] VITALS: PULSE 72; RESP 20; O2SAT 99
[2023-09-15 20:30] VITALS: BP 164/139; PULSE 72; RESP 20; TEMP 98.9; O2SAT 99
[2023-09-16] VITALS (11 sets, daily range): BP systolic 86–180; BP diastolic 66–111; PULSE 60–98; RESP 16–20; TEMP 98.6–99.8; O2SAT 96–100
[2023-09-16] MEDS: SODIUM CHLORIDE 0.9% 1000ML 1,000 ML IV SCH (11:00)
[2023-09-16] MEDS: HYDROCODONE/APAP 10MG-325MG TAB PO PRN (11:20)
[2023-09-16] MEDS ORDERED: HYDRALAZINE HCL 20 MG/ML VIAL IV PRN (11:30)
[2023-09-16] MEDS: METOPROLOL TARTRATE 25 MG TAB PO SCH (12:00)
[2023-09-16] MEDS: HEPARIN 500 UNITS/5ML MDV INJ ONE (16:07)
[2023-09-16 17:25] LABS: BASOPHILS % 0.5 % (0.0-1.0); EOSINOPHILS # (AUTO) 0.2 (0.0-0.4); HEMATOCRIT 35.5 % (38.2-49.6); LYMPHOCYTES # (AUTO) 2.3 (1.0-3.2); LYMPHOCYTES % 38.6 % (18.0-39.1); MEAN CORPUSCULAR HEMOGLOBIN 30.5 pg (28-32); MEAN CORPUSCULAR HGB CONC 33.8 g/dL (31-35); MEAN CORPUSCULAR VOLUME 90.1 fL (81-99); MONOCYTES # (AUTO) 0.4 (0.2-0.8); MONOCYTES % 6.4 % (4.4-11.3); NEUTROPHILS % 51.3 % (38.7-80.0); PLATELET COUNT 279 x10e3/uL (140-360); RED BLOOD COUNT 3.94 x10e6/uL (4.3-5.7); RED CELL DISTRIBUTION WIDTH 12.9 % (11.7-14.4); WHITE BLOOD COUNT 5.91 x10e3/uL (4.8-10.8)
[2023-09-16 17:42] LABS: ANION GAP 13.2 mmol/L (8-16); CREATININE, SERUM 0.59 mg/dL (0.72-1.25); POTASSIUM 4.2 mmol/L (3.5-5.1)
[2023-09-16 18:40] LABS: CLARITY,URINE TURBID (CLEAR); COLOR,URINE YELLOW (YELLOW)
[2023-09-16 18:41] LABS: LEUKOCYTE ESTERASE ,URINE LARGE (NEGATIVE); NITRITE,URINE NEGATIVE (NEGATIVE)
[2023-09-16 18:42] LABS: BILIRUBIN,URINE NEGATIVE (NEGATIVE); GLUCOSE, URINE NEGATIVE (NEGATIVE); KETONES,URINE NEGATIVE (NEGATIVE)
[2023-09-16 18:43] LABS: URINE UROBILINOGEN 0.2 mg/dL (0.2 - 1)
[2023-09-16 18:44] LABS: PH,URINE 8 (5 - 7)
[2023-09-16 18:45] LABS: PROTEIN,URINE DIPSTICK >=300 (NEGATIVE)
[2023-09-16 18:49] LABS: BACTERIA,URINE MODERATE /HPF; MUCUS,URINE MODERATE (RARE)
[2023-09-16] MEDS: TRAZODONE HCL 50 MG TAB PO SCH (20:51)
[2023-09-17] VITALS (8 sets, daily range): BP systolic 90–113; BP diastolic 59–87; PULSE 65–86; RESP 16–20; TEMP 98–100.6; O2SAT 93–100
[2023-09-17 06:23] LABS: BASOPHILS % 0.3 % (0.0-1.0); EOSINOPHILS # (AUTO) 0.2 (0.0-0.4); EOSINOPHILS % 3.3 % (0.0-6.0); HEMATOCRIT 38.3 % (38.2-49.6); HEMOGLOBIN 12.6 g/dL (14.0-18.0); LYMPHOCYTES # (AUTO) 2.3 (1.0-3.2); LYMPHOCYTES % 36.2 % (18.0-39.1); MEAN CORPUSCULAR HEMOGLOBIN 30.4 pg (28-32); MEAN CORPUSCULAR HGB CONC 32.9 g/dL (31-35); MEAN CORPUSCULAR VOLUME 92.3 fL (81-99); MONOCYTES # (AUTO) 0.5 (0.2-0.8); MONOCYTES % 7.5 % (4.4-11.3); NEUTROPHILS # (AUTO) 3.4 (2.1-6.9); NEUTROPHILS % 52.4 % (38.7-80.0); PLATELET COUNT 290 x10e3/uL (140-360); RED BLOOD COUNT 4.15 x10e6/uL (4.3-5.7); RED CELL DISTRIBUTION WIDTH 13.1 % (11.7-14.4); WHITE BLOOD COUNT 6.39 x10e3/uL (4.8-10.8)
[2023-09-17 06:49] LABS: ANION GAP 14.4 mmol/L (8-16); CALCIUM 9.1 mg/dL (8.4-10.2); CREATININE, SERUM 0.6 mg/dL (0.72-1.25); POTASSIUM 4.4 mmol/L (3.5-5.1)
[2023-09-17] MEDS ORDERED: METOPROLOL SUCCINATE 50 MG TAB XL PO SCH (09:00)
[2023-09-17] MEDS: SENNOSIDES 8.6 MG TAB PO SCH (09:00)
[2023-09-17] MEDS: OXYBUTYNIN CHLORIDE XL 5 MG TAB PO SCH (09:40)
[2023-09-17] MEDS ORDERED: ALTEPLASE RECOMBINANT 2 MG/2 ML VIAL IV PRN (10:15)
[2023-09-17 10:29] LABS: INR 0.98; PROTHROMBIN TIME 13.2 seconds (11.9-14.5)
[2023-09-17] MEDS: Morphine 4mg INJECTION 4 MG/ML INJ IV PRN (10:52)
== END 2023-09-17 16:14 | disposition hospice, home (50) | DRG 698 ==
LOC: ER 17:53 → ERHOLD 18:17 → MED/SURG3 20:43 → OBSVTOIN 09-16 10:51
PROVIDERS: ADMIT Internal Medicine; ATTEND Internal Medicine
DX: T83.510A Infection and inflammatory reaction due to cystostomy catheter, initial encounter (principal); E43 Unspecified severe protein-calorie malnutrition; R53.2 Functional quadriplegia; Z68.1 Body mass index [BMI] 19.9 or less, adult; N39.0 Urinary tract infection, site not specified; Z74.01 Bed confinement status; Z93.0 Tracheostomy status; Z51.5 Encounter for palliative care; M24.50 Contracture, unspecified joint; N31.9 Neuromuscular dysfunction of bladder, unspecified; M19.91 Primary osteoarthritis, unspecified site; G89.29 Other chronic pain; Z93.3 Colostomy status; Z95.828 Presence of other vascular implants and grafts; Z71.3 Dietary counseling and surveillance; Z79.899 Other long term (current) drug therapy
CPT/HCPCS: 36415; 74470; 80048; 81001; 85025; 85610; 87086; 87186; 94799; 99252; 99284; G0378; J2185; J2270; J2997; J7030; U0002

== ENCOUNTER 2024-05-10 01:07 | Emergency (ER) | payer MEDICARE ==
[~2024-05-10] VITALS: Ht 170.2 cm; Wt 43.1 kg
[2024-05-10 01:31] VITALS: TEMP 98.4
[2024-05-10 02:15] VITALS: PULSE 81; RESP 18; O2SAT 98
[2024-05-10 04:45] VITALS: PULSE 94; RESP 20; O2SAT 99
== END 2024-05-10 05:49 | disposition home or self-care (01) ==
LOC: ER 01:11
DX: Z46.6 Encounter for fitting and adjustment of urinary device (principal); Z93.6 Other artificial openings of urinary tract status; Z60.8 Other problems related to social environment; G82.50 Quadriplegia, unspecified; I10 Essential (primary) hypertension; K76.9 Liver disease, unspecified; E78.5 Hyperlipidemia, unspecified; G40.909 Epilepsy, unspecified, not intractable, without status epilepticus; F41.9 Anxiety disorder, unspecified; F32.A Depression, unspecified
CPT/HCPCS: 94799; 99283

== ENCOUNTER 2024-07-19 11:00 | Emergency (ER) | payer MEDICARE, OTHER ==
[~2024-07-19] VITALS: Ht 170.2 cm; Wt 43.1 kg
[2024-07-19 11:04] VITALS: PULSE 91; RESP 16; TEMP 97.1; O2SAT 99
== END 2024-07-19 14:06 | disposition home or self-care (01) ==
LOC: ER 11:10
DX: Z46.6 Encounter for fitting and adjustment of urinary device (principal); G82.50 Quadriplegia, unspecified; I10 Essential (primary) hypertension; E78.5 Hyperlipidemia, unspecified; K76.9 Liver disease, unspecified; G40.909 Epilepsy, unspecified, not intractable, without status epilepticus; F41.9 Anxiety disorder, unspecified
CPT/HCPCS: 87086; 87186; 99284

== ENCOUNTER 2024-10-30 15:12 | Inpatient (IN) | payer MEDICAID, MEDICARE, OTHER ==
[~2024-10-30] VITALS: Ht 152.4 cm; Wt 59.0 kg
[2024-10-30 16:30] LABS: BASOPHILS % 0.1 % (0.0-1.0); HEMATOCRIT 38.2 % (38.2-49.6); HEMOGLOBIN 12.7 g/dL (14.0-18.0); LYMPHOCYTES # (AUTO) 1.6 (1.0-3.2); LYMPHOCYTES % 11.3 % (18.0-39.1); MEAN CORPUSCULAR HEMOGLOBIN 32.1 pg (28-32); MEAN CORPUSCULAR HGB CONC 33.2 g/dL (31-35); MEAN CORPUSCULAR VOLUME 96.5 fL (81-99); MONOCYTES # (AUTO) 0.8 (0.2-0.8); MONOCYTES % 5.9 % (4.4-11.3); NEUTROPHILS # (AUTO) 11.5 (2.1-6.9); NEUTROPHILS % 82.4 % (38.7-80.0); PLATELET COUNT 405 x10e3/uL (140-360); RED BLOOD COUNT 3.96 x10e6/uL (4.3-5.7); RED CELL DISTRIBUTION WIDTH 13.9 % (11.7-14.4); WHITE BLOOD COUNT 13.98 x10e3/uL (4.8-10.8)
[2024-10-30] MEDS: SODIUM CHLORIDE 0.9% 1000ML 1,000 ML IV STA (16:35)
[2024-10-30] MEDS: ONDANSETRON HCL INJ 2MG/ML 2ML 2 MG/ML VIAL IV PRN (16:36)
[2024-10-30 16:53] LABS: ALBUMIN 4.2 g/dL (3.5-5.0); ALBUMIN/GLOBULIN RATIO 1.1 (0.8-2.0); ANION GAP 28.8 mmol/L (8-16); BILIRUBIN,TOTAL 0.5 mg/dL (0.2-1.2); CALCIUM 9.2 mg/dL (8.4-10.2); CREATININE, SERUM 1.56 mg/dL (0.72-1.25); POTASSIUM 3.8 mmol/L (3.5-5.1); TOTAL PROTEIN 8.2 g/dL (6.5-8.1)
[2024-10-30] MEDS ORDERED: IOPAMIDOL 370 MG/ML 100 ML INFUS..BTL INJ ONE (16:58)
[2024-10-30 18:16] VITALS: TEMP 98
[2024-10-30 18:35] VITALS: PULSE 74; RESP 18
[2024-10-30 19:05] VITALS: PULSE 90; RESP 18; O2SAT 98
[2024-10-30] MEDS: SODIUM CHLORIDE 0.9% 1000ML 1,000 ML IV SCH (21:54)
[2024-10-30 22:28] VITALS: BP 110/79; PULSE 93; RESP 18; TEMP 98.7; O2SAT 100
[2024-10-31] VITALS (16 sets, daily range): BP systolic 90–110; BP diastolic 63–79; PULSE 76–96; RESP 16–20; TEMP 97.6–98.9; O2SAT 95–100
[2024-10-31] MEDS ORDERED: ESCITALOPRAM OXA5 MG PO (01:08)
[2024-10-31] MEDS ORDERED: OXYBUTYNIN CHLOR5 MG PO (01:08)
[2024-10-31] MEDS ORDERED: METHENAMINE HIPP1 GM (01:08)
[2024-10-31] MEDS ORDERED: AMLODIPINE BESYL5 MG PO (01:08)
[2024-10-31] MEDS ORDERED: METOPROLOL TART50 MG PO (01:08)
[2024-10-31] MEDS ORDERED: TIZANIDINE HCL2 MG PO (01:08)
[2024-10-31] MEDS ORDERED: TRAZODONE HCL50 MG PO (01:09)
[2024-10-31] MEDS: Morphine 2mg Syringe 2 MG/ML SYR IV PRN (06:25)
[2024-10-31] MEDS ORDERED: ACETAMINOPHEN 325 MG TAB PO PRN (10:15)
[2024-10-31] MEDS ORDERED: HYDROCODONE/APAP 10MG-325MG TAB PO PRN (10:15)
[2024-10-31 15:51] LABS: BASOPHILS % 0.2 % (0.0-1.0); EOSINOPHILS % 0.1 % (0.0-6.0); HEMATOCRIT 37.1 % (38.2-49.6); HEMOGLOBIN 12.1 g/dL (14.0-18.0); LYMPHOCYTES # (AUTO) 1.8 (1.0-3.2); LYMPHOCYTES % 14.1 % (18.0-39.1); MEAN CORPUSCULAR HEMOGLOBIN 31.7 pg (28-32); MEAN CORPUSCULAR HGB CONC 32.6 g/dL (31-35); MEAN CORPUSCULAR VOLUME 97.1 fL (81-99); MONOCYTES # (AUTO) 0.8 (0.2-0.8); MONOCYTES % 6.3 % (4.4-11.3); NEUTROPHILS # (AUTO) 10.1 (2.1-6.9); NEUTROPHILS % 78.8 % (38.7-80.0); PLATELET COUNT 375 x10e3/uL (140-360); RED BLOOD COUNT 3.82 x10e6/uL (4.3-5.7); RED CELL DISTRIBUTION WIDTH 14.4 % (11.7-14.4); WHITE BLOOD COUNT 12.77 x10e3/uL (4.8-10.8)
[2024-10-31 16:14] LABS: INR 0.94; PROTHROMBIN TIME 13.1 seconds (11.9-14.5)
[2024-10-31 16:15] LABS: PARTIAL THROMBOPLASTIN TIME 22.2 seconds (23.8-35.5)
[2024-10-31 16:21] LABS: ALBUMIN 3.7 g/dL (3.5-5.0); ANION GAP 20.9 mmol/L (8-16); BILIRUBIN,TOTAL 0.3 mg/dL (0.2-1.2); CALCIUM 8.7 mg/dL (8.4-10.2); CREATININE, SERUM 0.88 mg/dL (0.72-1.25); POTASSIUM 3.9 mmol/L (3.5-5.1); TOTAL PROTEIN 7.3 g/dL (6.5-8.1)
[2024-10-31] MEDS: TRAZODONE HCL 50 MG TAB PO SCH (20:55)
[2024-10-31] MEDS: AMLODIPINE BESYLATE 5 MG TAB PO SCH (20:55)
[2024-10-31] MEDS: METRONIDAZOLE 500MG/NS 100ML 100 ML IV SCH (23:32)
[2024-11-01] VITALS (9 sets, daily range): BP systolic 98–148; BP diastolic 59–80; PULSE 66–108; RESP 16–19; TEMP 97.4–99; O2SAT 96–99
[2024-11-01 06:35] LABS: BASOPHILS % 0.1 % (0.0-1.0); EOSINOPHILS % 0.3 % (0.0-6.0); HEMATOCRIT 34.9 % (38.2-49.6); LYMPHOCYTES % 27.2 % (18.0-39.1); MEAN CORPUSCULAR HEMOGLOBIN 32.2 pg (28-32); MEAN CORPUSCULAR HGB CONC 31.5 g/dL (31-35); NEUTROPHILS # (AUTO) 6.9 (2.1-6.9); NEUTROPHILS % 63.1 % (38.7-80.0); PLATELET COUNT 320 x10e3/uL (140-360); RED BLOOD COUNT 3.42 x10e6/uL (4.3-5.7); RED CELL DISTRIBUTION WIDTH 14.3 % (11.7-14.4); WHITE BLOOD COUNT 10.86 x10e3/uL (4.8-10.8)
[2024-11-01 07:17] LABS: ANION GAP 19.8 mmol/L (8-16); CALCIUM 8.9 mg/dL (8.4-10.2); CREATININE, SERUM 0.83 mg/dL (0.72-1.25); POTASSIUM 3.8 mmol/L (3.5-5.1)
[2024-11-01] MEDS ORDERED: ACETAMINOPHEN 325 MG TAB PO PRN (08:30)
[2024-11-01] MEDS: METOPROLOL TARTRATE 25 MG TAB PO SCH (09:00)
[2024-11-01] MEDS ORDERED: METOPROLOL SUCCINATE 50 MG TAB XL PO SCH (09:00)
[2024-11-01] MEDS: TIZANIDINE HCL 4 MG TAB PO SCH (09:34)
[2024-11-01] MEDS: OXYBUTYNIN CHLORIDE 5 MG TAB PO SCH (09:35)
[2024-11-02] VITALS (11 sets, daily range): BP systolic 105–143; BP diastolic 71–89; PULSE 62–89; RESP 16–21; TEMP 97.4–99; O2SAT 95–100
[2024-11-03] VITALS (9 sets, daily range): BP systolic 115–174; BP diastolic 86–113; PULSE 64–86; RESP 16–18; TEMP 98.2–99.6; O2SAT 95–99
[2024-11-03 06:31] LABS: BASOPHILS % 0.3 % (0.0-1.0); EOSINOPHILS # (AUTO) 0.2 (0.0-0.4); EOSINOPHILS % 3.7 % (0.0-6.0); HEMATOCRIT 32.6 % (38.2-49.6); HEMOGLOBIN 10.8 g/dL (14.0-18.0); LYMPHOCYTES # (AUTO) 2.4 (1.0-3.2); LYMPHOCYTES % 39.9 % (18.0-39.1); MEAN CORPUSCULAR HGB CONC 33.1 g/dL (31-35); MEAN CORPUSCULAR VOLUME 96.7 fL (81-99); MONOCYTES # (AUTO) 0.4 (0.2-0.8); MONOCYTES % 7.3 % (4.4-11.3); NEUTROPHILS # (AUTO) 2.8 (2.1-6.9); NEUTROPHILS % 48.3 % (38.7-80.0); PLATELET COUNT 269 x10e3/uL (140-360); RED BLOOD COUNT 3.37 x10e6/uL (4.3-5.7); RED CELL DISTRIBUTION WIDTH 13.4 % (11.7-14.4); WHITE BLOOD COUNT 5.89 x10e3/uL (4.8-10.8)
[2024-11-03 07:02] LABS: ANION GAP 14.8 mmol/L (8-16); CALCIUM 9.1 mg/dL (8.4-10.2); CREATININE, SERUM 0.49 mg/dL (0.72-1.25); POTASSIUM 3.8 mmol/L (3.5-5.1)
[2024-11-04] VITALS (10 sets, daily range): BP systolic 114–192; BP diastolic 73–120; PULSE 64–90; RESP 17–20; TEMP 97.5–100; O2SAT 92–100
[2024-11-05] VITALS (10 sets, daily range): BP systolic 130–153; BP diastolic 92–113; PULSE 56–84; RESP 17–20; TEMP 98.1–99.2; O2SAT 95–100
[2024-11-06] VITALS: BP 149/116; PULSE 66; RESP 19; TEMP 98.9; O2SAT 97
[2024-11-06 00:30] VITALS: PULSE 66; RESP 18; O2SAT 97
[2024-11-06 05:10] VITALS: BP 135/109; PULSE 87; RESP 17; TEMP 98.2; O2SAT 98
[2024-11-06 06:49] VITALS: PULSE 78; RESP 20; O2SAT 98
[2024-11-06 06:53] LABS: BASOPHILS % 0.3 % (0.0-1.0); EOSINOPHILS # (AUTO) 0.2 (0.0-0.4); HEMATOCRIT 32.9 % (38.2-49.6); HEMOGLOBIN 10.9 g/dL (14.0-18.0); LYMPHOCYTES # (AUTO) 1.9 (1.0-3.2); LYMPHOCYTES % 29.6 % (18.0-39.1); MEAN CORPUSCULAR HEMOGLOBIN 32.3 pg (28-32); MEAN CORPUSCULAR HGB CONC 33.1 g/dL (31-35); MEAN CORPUSCULAR VOLUME 97.6 fL (81-99); MONOCYTES # (AUTO) 0.5 (0.2-0.8); MONOCYTES % 8.5 % (4.4-11.3); NEUTROPHILS # (AUTO) 3.6 (2.1-6.9); PLATELET COUNT 305 x10e3/uL (140-360); RED BLOOD COUNT 3.37 x10e6/uL (4.3-5.7); RED CELL DISTRIBUTION WIDTH 13.4 % (11.7-14.4); WHITE BLOOD COUNT 6.26 x10e3/uL (4.8-10.8)
[2024-11-06 07:22] LABS: ALBUMIN 3.3 g/dL (3.5-5.0); ALBUMIN/GLOBULIN RATIO 1.1 (0.8-2.0); BILIRUBIN,TOTAL 0.3 mg/dL (0.2-1.2); CALCIUM 9.3 mg/dL (8.4-10.2); CREATININE, SERUM 0.53 mg/dL (0.72-1.25); TOTAL PROTEIN 6.2 g/dL (6.5-8.1)
[2024-11-06 12:05] VITALS: BP 108/81; PULSE 86; RESP 19; TEMP 98.8; O2SAT 100
[2024-11-06] MEDS: HEPARIN 500 UNITS/5ML MDV INJ ONE (18:38)
== END 2024-11-06 18:58 | DRG 698 ==
LOC: ER 15:58 → ERHOLD 20:32 → MED/SURG3 22:54
PROVIDERS: ADMIT Internal Medicine; ATTEND Internal Medicine
DX: T83.510A Infection and inflammatory reaction due to cystostomy catheter, initial encounter (principal); G82.50 Quadriplegia, unspecified; N17.9 Acute kidney failure, unspecified; M62.49 Contracture of muscle, multiple sites; K52.9 Noninfective gastroenteritis and colitis, unspecified; I10 Essential (primary) hypertension; N31.9 Neuromuscular dysfunction of bladder, unspecified; R31.9 Hematuria, unspecified; N20.0 Calculus of kidney; E86.0 Dehydration; E78.5 Hyperlipidemia, unspecified; F41.9 Anxiety disorder, unspecified; F32.A Depression, unspecified; G40.909 Epilepsy, unspecified, not intractable, without status epilepticus; M54.9 Dorsalgia, unspecified; Y84.6 Urinary catheterization as the cause of abnormal reaction of the patient, or of later complication, without mention of misadventure at the time of the procedure; S14.109S Unspecified injury at unspecified level of cervical spinal cord, sequela; X58.XXXS Exposure to other specified factors, sequela; Z74.01 Bed confinement status; Z93.59 Other cystostomy status; Z93.0 Tracheostomy status; Z93.3 Colostomy status; Z93.1 Gastrostomy status; Z88.8 Allergy status to other drugs, medicaments and biological substances
CPT/HCPCS: 36415; 74177; 80048; 80053; 82948; 83690; 85025; 85610; 85730; 87086; 87186; 94799; 99252; 99284; J0696; J2270; J2405; J2543; J7030; Q9967